=== PATIENT | female | born 1960 | race African-American/Black ===

== ENCOUNTER 2018-11-03 12:54 | Inpatient (IN) | payer MEDICAID ==
[~2018-11-03] VITALS: Ht 175.3 cm; Wt 173.5 kg
[2018-11-03 13:32] VITALS: BP 120/85
--- NOTE | 2018-11-03 13:52 | Emergency Room Report ---
History of Present Illness General Chief Complaint: Chest Pain Source: Patient Present Illness HPI Patient presents with complaints of upper chest pain shortness of breath patient reports that she has history of CHF Has noticed increased swelling in her legs and lower abdominal area Patient reports remote history of leukemia as well Reports that she had previous chemotherapy And that when she gets under stress and has a tendency to possibly flareup Denies any vomiting or diarrhea denies any fevers or chills she has a mild cough as well Patient reports that she has not been taking her diuretics Pain in the upper chest is 3 out of 10 heavy Patient feels more short of breath with any exertion and laying flat Allergies: Coded Allergies: No Known Allergies (Unverified , 11/03/18) Patient History Limited by: medical condition Last Menstrual Period: N/A Now: No Reviewed Nursing Documentation: PMH: Agreed; PSxH: Agreed Nursing Documentation-PMH Hx Cardiac Problems: Yes - Pacemaker Hx Hypertension: Yes Hx Diabetes: Yes Review of Systems All Other Systems: negative except mentioned in HPI Physical Exam Vital Signs Date Time Temp Pulse Resp B/P (MAP) Pulse Ox O2 Delivery O2 Flow Rate FiO2 11/03/18 13:22 98.1 84 18 128/63 (84) 90 Room Air Sp02 EP Interpretation: reviewed, normal General Appearance: mild distress - short Of breath Head: normocephalic, atraumatic Eyes: bilateral eye PERRL, bilateral eye EOMI ENT: hearing grossly normal, normal pharynx, TMs + canals normal, uvula midline Neck: full range of motion, supple, no meningismus, no bony tend Respiratory: no rhonchi, no respiratory distress, no retraction, no accessory muscle use, crackles - bilaterally Cardiovascular #1: normal peripheral pulses, regular rate, rhythm, no gallop, no JVD, no murmur Gastrointestinal: normal bowel sounds, non tender, soft, no mass, no organomegaly, non-distended, no guarding, no hernia, no pulsatile mass, no rebound Genitourinary: no CVA tenderness Musculoskeletal: normal inspection Neurologic: oriented x3, responsive, intake rn III-XII nml as tested, motor strength/ tone normal, sensory intact Psychiatric: mood/affect normal Skin: other - Edema bilaterally Lymphatic: normal inspection, no adenopathy Medical Decision Making Diagnostic Impression: Primary Impression: CHF (congestive heart failure) Additional Impression: ACS (acute coronary syndrome) ER Course Patient is a fairly complex patient with multiple differential to consideration including but not limited to cardiac cardiopulmonary and vascular emergencies Patient's x-ray and blood work also confirms acute congestive heart failure patient doing better with diuretics At this time not requiring any further BiPAP And admitted for further inpatient care Labs Test 11/03/18 14:00 11/03/18 23:08 White Blood Count 9.0 K/UL (4.8-10.8) Red Blood Count 4.43 M/UL (4.20-5.40) Hemoglobin 12.9 G/DL (12.0-16.0) Hematocrit 41.2 % (37.0-47.0) Mean Corpuscular Volume 93 FL (80-99) Mean Corpuscular Hemoglobin 29.2 PG (27.0-31.0) Mean Corpuscular Hemoglobin Concent 31.3 G/DL (32.0-36.0) Red Cell Distribution Width 14.7 % (11.6-14.8) Platelet Count 193 K/UL (150-450) Mean Platelet Volume 10.6 FL (6.5-10.1) Neutrophils (%) (Auto) 59.6 % (45.0-75.0) Lymphocytes (%) (Auto) 28.3 % (20.0-45.0) Monocytes (%) (Auto) 7.1 % (1.0-10.0) Eosinophils (%) (Auto) 3.9 % (0.0-3.0) Basophils (%) (Auto) 1.2 % (0.0-2.0) Sodium Level 144 MMOL/L (136-145) Potassium Level 4.0 MMOL/L (3.5-5.1) Chloride Level 108 MMOL/L (98-107) Carbon Dioxide Level 29 MMOL/L (21-32) Anion Gap 7 mmol/L (5-15) Blood Urea Nitrogen 16 mg/dL (7-18) Creatinine 1.2 MG/DL (0.55-1.30) Estimat Glomerular Filtration Rate 45.9 mL/min (>60) Glucose Level 127 MG/DL (74-106) Calcium Level 9.3 MG/DL (8.5-10.1) Total Bilirubin 0.5 MG/DL (0.2-1.0) Aspartate Amino Transf (AST/SGOT) 23 U/L (15-37) Alanine Aminotransferase (ALT/SGPT) 20 U/L (12-78) Alkaline Phosphatase 75 U/L (46-116) Total Creatine Kinase 36 U/L (26-308) Creatine Kinase MB < 0.5 NG/ML (0.0-3.6) Creatine Kinase MB Relative Index 1.3 Troponin I 0.000 ng/mL (0.000-0.056) 0.000 ng/mL (0.000-0.056) Pro-B-Type Natriuretic Peptide 10 pg/mL (0-125) Total Protein 7.1 G/DL (6.4-8.2) Albumin 3.1 G/DL (3.4-5.0) Globulin 4.0 g/dL Albumin/Globulin Ratio 0.8 (1.0-2.7) EKG Diagnostic Results Rate: normal Rhythm: NSR ST Segments: other - Nonspecific ST T wave changes Rhythm Strip Diag. Results EP Interpretation: yes Rate: 88 Rhythm: NSR, no PVC's, no ectopy Chest X-Ray Diagnostic Results Chest X-Ray Diagnostic Results : Chest X-Ray Ordered: Yes # of Views/Limited/Complete: 1 View Indication: Chest Pain EP Interpretation: Yes Interpretation: other - Cardiomegaly, pulmonary congestion, no bony abnormality Impression: Other - Acute CHF Electronically Signed by: Nathaniel Golden DO Last Vital Signs Date Time Temp Pulse Resp B/P (MAP) Pulse Ox O2 Delivery O2 Flow Rate FiO2 11/03/18 13:22 98.1 84 18 128/63 (84) 90 Room Air Status: improved Disposition: ADMITTED INPATIENT Condition: Serious Nathaniel Golden DO Nov 03, 2018 13:52
--- NOTE | 2018-11-03 14:20 | Diagnostic Imaging Report ---
EXAM: XR Chest, 1 View CLINICAL HISTORY: CP TECHNIQUE: Frontal view of the chest. COMPARISON: No relevant prior studies available. FINDINGS: Technically limited study due to underpenetration. Mild cardiomegaly with vascular congestion. Suspected CHF. Dual-lead pacer device in a left subclavian approach. No pneumothorax. IMPRESSION: Mild cardiomegaly with vascular congestion/suspected CHF.
[2018-11-03 14:27] LABS: BASOPHILS % (AUTO) 1.2 % (0.0-2.0); EOSINOPHILS % (AUTO) 3.9 % (0.0-3.0); HEMATOCRIT 41.2 % (37.0-47.0); HEMOGLOBIN 12.9 G/DL (12.0-16.0); LYMPHOCYTES % (AUTO) 28.3 % (20.0-45.0); MEAN CORPUSCULAR VOLUME 93 FL (80-99); MONOCYTES % (AUTO) 7.1 % (1.0-10.0); NEUTROPHILS % (AUTO) 59.6 % (45.0-75.0); PLATELET COUNT 193 K/UL (150-450); RED BLOOD COUNT 4.43 M/UL (4.20-5.40); RED CELL DISTRIBUTION WIDTH 14.7 % (11.6-14.8)
[2018-11-03 14:40] LABS: ANION GAP 7 mmol/L (5-15); BLOOD UREA NITROGEN 16 mg/dL (7-18); CALCIUM 9.3 MG/DL (8.5-10.1); CARBON DIOXIDE 29 MMOL/L (21-32); CHLORIDE 108 MMOL/L (98-107); CREATININE 1.2 MG/DL (0.55-1.30); SODIUM 144 MMOL/L (136-145)
[2018-11-03 14:57] LABS: ALANINE AMINOTRANSFERASE 20 U/L (12-78); ALBUMIN 3.1 G/DL (3.4-5.0); ALBUMIN/GLOBULIN RATIO 0.8 (1.0-2.7); ALKALINE PHOSPHATASE 75 U/L (46-116); ASPARTATE AMINO TRANSFERASE 23 U/L (15-37); BILIRUBIN,TOTAL 0.5 MG/DL (0.2-1.0); CKMB < 0.5 NG/ML (0.0-3.6); CREATINE KINASE 36 U/L (26-308)
[2018-11-03 15:30] VITALS: BP 109/58
[2018-11-03] MEDS ORDERED: UNOBMED ×2 (16:27→17:33)
[2018-11-03 17:15] VITALS: BP 124/70
[2018-11-03] MEDS ORDERED: METFORMIN HCL500 M1 ORAL (17:32)
[2018-11-03] MEDS ORDERED: DITROPAN10 MG ORAL (17:32)
[2018-11-03 20:00] VITALS: BP 130/98
[2018-11-03] MEDS: HYDROcodone/Acetamin 10/325 tab ORAL PRN (20:28)
[2018-11-03] MEDS: Promethazine/Codeine 5ml UD ORAL PRN (20:28)
[2018-11-03] MEDS: NovoLOG Insulin Flexpen SUBQ SCH (20:39)
[2018-11-04] VITALS: BP 101/63
[2018-11-04] MEDS: HYDROcodone/Acetamin 10/325 tab ORAL PRN (00:44)
[2018-11-04] MEDS ORDERED: HYDROcodone/Acetamin 10/325 tab ORAL PRN (03:15)
[2018-11-04 04:00] VITALS: BP 110/75
[2018-11-04] MEDS: NovoLOG Insulin Flexpen SUBQ SCH ×4 (05:44→20:12)
[2018-11-04] MEDS: Morphine Sulfate 4mg/ml Inj (IV USE ONLY) IVP PRN ×6 (06:20→23:56)
[2018-11-04 07:03] LABS: ANION GAP 5 mmol/L (5-15); BLOOD UREA NITROGEN 22 mg/dL (7-18); CARBON DIOXIDE 31 MMOL/L (21-32); CHLORIDE 103 MMOL/L (98-107); CHOLESTEROL 188 MG/DL (< 200); CREATININE 1.2 MG/DL (0.55-1.30); HDL CHOLESTEROL 51 MG/DL (40-60); POTASSIUM 4.1 MMOL/L (3.5-5.1); SODIUM 139 MMOL/L (136-145); TRIGLYCERIDES 141 MG/DL (30-150)
[2018-11-04 08:00] VITALS: BP 120/58
[2018-11-04] MEDS: Aspirin Baby 81mg ORAL SCH (09:01)
--- NOTE | 2018-11-04 10:22 | History & Physical ---
History and Physical History & Physicial HP dictated # [id number] Timmy Zurita MD Nov 04, 2018 10:22
[2018-11-04] MEDS: Augmentin 875mg Tab ORAL SCH ×2 (10:40→20:04)
[2018-11-04] MEDS: metFORMIN 500mg tab ORAL SCH ×2 (10:40→17:36)
[2018-11-04 12:00] VITALS: BP 119/72
[2018-11-04 16:00] VITALS: BP 133/65
--- NOTE | 2018-11-04 16:00 | History and Physical Report ---
DATE OF ADMISSION: 11/03/2018 CHIEF COMPLAINT: Shortness of breath and cough. HISTORY OF PRESENT ILLNESS: This is a 58-year-old, morbidly obese, female. Apparently, she has history of CHF, but she claimed that she was not taking any diuretics at home. She noticed her legs were swelling up about 3 days ago and last night, she started having cough and shortness of breath. She came to the emergency room, was diagnosed with CHF exacerbation and was admitted. She denies chest pain. PAST MEDICAL HISTORY: She denies history of MIs before. She says she has a pacemaker because her heart rate goes down when she sleeps probably because of sleep apnea. She has history of diabetes mellitus, on oral medications. Has history of hypertension. SOCIAL HISTORY: No history of smoking or alcohol abuse. She lives alone. She drives. Actually, she drove here to the hospital herself, but unemployed. ALLERGIES: No known drug allergies. REVIEW OF SYSTEMS: Noncontributory except above. PHYSICAL EXAMINATION: GENERAL: The patient is a morbidly obese female, in no acute distress. VITAL SIGNS: Blood pressure 120/58, pulse 87, respirations 20, temperature 97.9. HEENT: [place] conjunctivae. Anicteric sclerae. NECK: Supple. LUNGS: Coarse breath sounds bilaterally. HEART: S1, S2 without murmurs, rubs. ABDOMEN: Soft, nontender. EXTREMITIES: Bilateral pedal edema. LABORATORY FINDINGS: The chemistry panel shows serum sodium 139, potassium 4.1, chloride 103, CO2 31, BUN is 22, creatinine 1.2, blood sugar is 151. Troponin was negative x3. Lipid panel shows LDL of 123, triglycerides 141, HDL 51. Hemoglobin A1c was 7.3. ASSESSMENT: This is a 58-year-old female, who was admitted with CHF exacerbation. She may have actually diastolic dysfunction from high blood pressure since she has not had any reported ischemic event. She has also diabetes mellitus, which could also cause her CHF. She is status post pacemaker. She has also some degree of CKD likely even with serum creatinine 1.2. PLAN: The patient will be diuresed. She is going to be on oxygen. An echocardiogram will be obtained to assess LV function. I ordered the ultrasound lower extremities to rule out DVT. Her blood pressure will be followed and adjustment will be made in the patient's regimen. For diabetes, she will be on sliding scale insulin and I will add oral medications as needed. Timmy Zurita M.D. DR: ADENIKE JOB#: [id number] CC:
[2018-11-04 17:03] LABS: APPEARANCE,URINE CLEAR; BILIRUBIN, URINE NEGATIVE (NEGATIVE); COLOR,URINE PALE YELLOW; GLUCOSE, URINE (UA) NEGATIVE (NEGATIVE); KETONES,URINE NEGATIVE (NEGATIVE); LEUKOCYTE ESTERASE ,URINE NEGATIVE (NEGATIVE); NITRITE,URINE NEGATIVE (NEGATIVE); PH,URINE 7 (4.5-8.0); PROTEIN,URINE NEGATIVE (NEGATIVE); UROBILINOGEN,URINE NORMAL MG/DL (0.0-1.0)
[2018-11-04 20:00] VITALS: BP 115/74
[2018-11-05] VITALS: BP 151/74
[2018-11-05] MEDS: Promethazine/Codeine 5ml UD ORAL PRN (03:53)
[2018-11-05 04:00] VITALS: BP 118/72
[2018-11-05] MEDS: sitaGLIPtin 50mg tab ORAL SCH (05:53)
[2018-11-05] MEDS: NovoLOG Insulin Flexpen SUBQ SCH ×4 (05:58→22:35)
[2018-11-05 07:44] LABS: ANION GAP 6 mmol/L (5-15); BLOOD UREA NITROGEN 16 mg/dL (7-18); CALCIUM 9.5 MG/DL (8.5-10.1); CARBON DIOXIDE 32 MMOL/L (21-32); CHLORIDE 104 MMOL/L (98-107); CREATININE 0.9 MG/DL (0.55-1.30); POTASSIUM 4.1 MMOL/L (3.5-5.1); SODIUM 142 MMOL/L (136-145)
[2018-11-05 08:00] VITALS: BP 146/75
[2018-11-05] MEDS: Augmentin 875mg Tab ORAL SCH ×2 (08:31→22:19)
[2018-11-05] MEDS: Aspirin Baby 81mg ORAL SCH (08:31)
[2018-11-05] MEDS: metFORMIN 500mg tab ORAL SCH ×2 (08:31→17:23)
[2018-11-05 12:00] VITALS: BP 139/72
[2018-11-05] MEDS: Morphine Sulfate 4mg/ml Inj (IV USE ONLY) IVP PRN ×2 (13:01→22:34)
--- NOTE | 2018-11-05 14:20 | General Progress Note ---
Assessment/Plan Problem List: (1) CHF (congestive heart failure) ICD Codes: I50.9 - Heart failure, unspecified SNOMED: 76769054 (2) ACS (acute coronary syndrome) ICD Codes: I24.9 - Acute ischemic heart disease, unspecified SNOMED: 414448046 Assessment/Plan: keep on Lasix pain meds check echo Subjective Allergies: Coded Allergies: No Known Allergies (Unverified , 11/03/18) Subjective C/O pain Objective Last 24 Hour Vital Signs Date Time Temp Pulse Resp B/P (MAP) Pulse Ox O2 Delivery O2 Flow Rate FiO2 11/05/18 13:31 96.3 11/05/18 12:00 96.3 78 20 139/72 (94) 97 11/05/18 12:00 70 11/05/18 09:00 Nasal Cannula 2.0 11/05/18 08:00 86 11/05/18 08:00 97.2 79 20 146/75 (98) 94 11/05/18 04:00 98.7 85 19 118/72 (87) 96 11/05/18 04:00 80 11/05/18 00:00 98.5 71 19 151/74 (99) 96 11/05/18 00:00 73 11/04/18 21:00 Nasal Cannula 2.0 11/04/18 20:00 81 11/04/18 20:00 98.2 85 19 115/74 (88) 94 11/04/18 16:00 98.1 80 21 133/65 (87) 96 11/04/18 16:00 64 Intake and Output 11/04/18 11/05/18 19:00 07:00 Intake Total 400 ml 360 ml Output Total 1000 ml Balance -600 ml 360 ml Intake Oral 400 ml 360 ml Output Urine Total 1000 ml Laboratory Tests 11/04/18 16:23: Urine Color Pale yellow, Urine Appearance Clear, Urine pH 7, Urine Specific White 1.010, Urine Protein Negative, Urine Glucose (UA) Negative, Urine Ketones Negative, Urine Blood Negative, Urine Nitrite Negative, Urine Bilirubin Negative, Urine Urobilinogen Normal, Urine Leukocyte Esterase Negative, Urine RBC 0, Urine WBC 0-2, Urine Squamous Epithelial Cells Few, Urine Bacteria Occasional 11/05/18 05:26: Sodium Level 142, Potassium Level 4.1, Chloride Level 104, Carbon Dioxide Level 32, Anion Gap 6, Blood Urea Nitrogen 16, Creatinine 0.9, Estimat Glomerular Filtration Rate > 60, Glucose Level 124H, Calcium Level 9.5, Magnesium Level 1.7L, Thyroid Stimulating Hormone (TSH) 3.561 Height (Feet): 5 Height (Inches): 9.00 Weight (Pounds): 330 Cardiovascular: normal rate Respiratory/Chest: lungs clear Edema: 1+ Generalized Timmy Zurita MD Nov 05, 2018 14:20
[2018-11-05 16:00] VITALS: BP 125/59
[2018-11-05 20:00] VITALS: BP 120/70
[2018-11-06] VITALS (7 sets, daily range): BP systolic 104–147; BP diastolic 61–77
[2018-11-06] MEDS: Morphine Sulfate 4mg/ml Inj (IV USE ONLY) IVP PRN ×4 (01:47→21:04)
[2018-11-06] MEDS: sitaGLIPtin 50mg tab ORAL SCH (06:48)
[2018-11-06] MEDS: NovoLOG Insulin Flexpen SUBQ SCH ×4 (06:49→20:59)
[2018-11-06] MEDS: metFORMIN 500mg tab ORAL SCH ×2 (09:47→17:06)
[2018-11-06] MEDS: Augmentin 875mg Tab ORAL SCH ×2 (09:47→20:58)
[2018-11-06] MEDS: Aspirin Baby 81mg ORAL SCH ×2 (09:47→09:48)
--- NOTE | 2018-11-06 10:41 | Cardiology Report ---
APPROVED REPORT EXAM: Two-dimensional and M-mode echocardiogram with Doppler and color Doppler. INDICATION Congestive Heart Failure M-Mode DIMENSIONS IVSd1.2 (0.7-1.1cm)Left Atrium (MM)4.0 (1.6-4.0cm) LVDd5.6 (3.5-5.6cm)Aortic Root3.6 (2.0-3.7cm) PWd1.2 (0.7-1.1cm)Aortic Cusp Exc.2.4 (1.5-2.0cm) LVDs3.3 (2.5-4.0cm) PWs1.6 cm Technically difficult study due to patient body habitus. Study quality precludes accurate assessment of regional wall motion. Grossly normal left ventricular chamber size, systolic function and wall motion to the extent visualized . Left ventricular ejection fraction estimated to be 65-70 %. Mild left ventricular hypertrophy. Anterior Echo-free space, may be due to pericardial fat or effusion. Mild left atrial enlargement by 2-D. Right cardiac chamber sizes are within normal limits. Focal aortic valve sclerosis with adequate cusp excursion. Thickened mitral valve leaflets with normal excursion. Mild mitral annulus and aortic root calcification. Pulmonic valve not well visualized. Normal tricuspid valve structure. Subcostal views not obtainable. Pacing wires noted in the RV an RA A color flow and spectral Doppler study was performed and revealed: No aortic regurgitation. No mitral regurgitation. Mitral diastolic velocities suggest mild left ventricular diastolic dysfunction (Grade I). Mild tricuspid regurgitation. Tricuspid systolic velocities suggests peak right ventricular systolic pressure of 44 mmHg, consistent with mild pulmonary hypertension.
--- NOTE | 2018-11-06 11:11 | Cardiology Report ---
APPROVED REPORT EKG Measurement Heart [id number] Normal sinus rhythm Normal ECG
--- NOTE | 2018-11-06 15:31 | General Progress Note ---
Assessment/Plan Problem List: (1) CHF (congestive heart failure) ICD Codes: I50.9 - Heart failure, unspecified SNOMED: 07205120 (2) ACS (acute coronary syndrome) ICD Codes: I24.9 - Acute ischemic heart disease, unspecified SNOMED: 313024611 Status Narrative Echo EF 65% mild LVH Assessment/Plan: keep on Lasix pain meds follow labs Subjective Allergies: Coded Allergies: No Known Allergies (Unverified , 11/03/18) Subjective C/O pain Objective Last 24 Hour Vital Signs Date Time Temp Pulse Resp B/P (MAP) Pulse Ox O2 Delivery O2 Flow Rate FiO2 11/06/18 12:00 98.1 77 20 131/61 (84) 96 11/06/18 09:00 Nasal Cannula 2.0 11/06/18 08:00 97.9 76 18 134/68 (90) 95 11/06/18 04:00 98.1 78 20 128/66 (86) 97 11/06/18 04:00 71 11/06/18 00:14 98.1 81 20 118/63 (81) 95 11/06/18 00:00 78 11/05/18 21:00 Nasal Cannula 2.0 11/05/18 20:00 98.1 87 20 120/70 (87) 96 11/05/18 20:00 87 11/05/18 16:00 97.9 86 20 125/59 (81) 95 11/05/18 16:00 72 Intake and Output 11/05/18 11/06/18 19:00 07:00 Intake Total 1140 ml Output Total 4950 ml Balance -3810 ml Intake Oral 1140 ml Output Urine Total 4950 ml # Voids 4 Height (Feet): 5 Height (Inches): 9.00 Weight (Pounds): 330 Cardiovascular: normal rate Respiratory/Chest: lungs clear Edema: 1+ Generalized Timmy Zurita MD Nov 06, 2018 15:31
[2018-11-07] VITALS: BP 132/73
[2018-11-07] MEDS: Morphine Sulfate 4mg/ml Inj (IV USE ONLY) IVP PRN ×2 (00:53→04:31)
[2018-11-07 04:00] VITALS: BP 123/70
[2018-11-07] MEDS: sitaGLIPtin 50mg tab ORAL SCH (06:05)
[2018-11-07] MEDS: NovoLOG Insulin Flexpen SUBQ SCH ×4 (06:06→21:22)
[2018-11-07 06:59] LABS: ANION GAP 2 mmol/L (5-15); BLOOD UREA NITROGEN 19 mg/dL (7-18); CALCIUM 9.1 MG/DL (8.5-10.1); CARBON DIOXIDE 34 MMOL/L (21-32); CHLORIDE 103 MMOL/L (98-107); CREATININE 0.8 MG/DL (0.55-1.30); POTASSIUM 3.8 MMOL/L (3.5-5.1); SODIUM 139 MMOL/L (136-145)
[2018-11-07 08:00] VITALS: BP 138/85
[2018-11-07] MEDS: metFORMIN 500mg tab ORAL SCH ×2 (09:03→17:26)
[2018-11-07] MEDS: Augmentin 875mg Tab ORAL SCH ×2 (09:03→21:22)
[2018-11-07] MEDS ORDERED: Aspirin Baby 81mg ORAL SCH (09:15)
[2018-11-07 12:00] VITALS: BP_SYST 102; BP_SYST 138; BP_DIAS 78; BP_DIAS 85
--- NOTE | 2018-11-07 13:06 | General Progress Note ---
Assessment/Plan Problem List: (1) CHF (congestive heart failure) ICD Codes: I50.9 - Heart failure, unspecified SNOMED: 37329693 (2) ACS (acute coronary syndrome) ICD Codes: I24.9 - Acute ischemic heart disease, unspecified SNOMED: 267609142 Assessment/Plan: keep on Lasix pain meds follow labs Subjective Allergies: Coded Allergies: No Known Allergies (Unverified , 11/03/18) Subjective C/O pain Objective Last 24 Hour Vital Signs Date Time Temp Pulse Resp B/P (MAP) Pulse Ox O2 Delivery O2 Flow Rate FiO2 11/07/18 09:00 Nasal Cannula 2.0 11/07/18 08:00 98.6 84 18 138/85 (102) 92 11/07/18 07:25 80 11/07/18 04:00 98.4 85 18 123/70 (87) 93 11/07/18 04:00 78 11/07/18 00:00 78 11/07/18 00:00 98.5 85 18 132/73 (92) 93 11/06/18 21:00 Nasal Cannula 2.0 11/06/18 20:00 99.6 82 18 104/67 (79) 95 11/06/18 20:00 70 11/06/18 16:00 75 11/06/18 16:00 98.8 79 20 125/76 (92) 93 Intake and Output 11/06/18 11/07/18 19:00 07:00 Intake Total 120 ml Balance 120 ml Intake Oral 120 ml Laboratory Tests 11/07/18 05:36: Sodium Level 139, Potassium Level 3.8, Chloride Level 103, Carbon Dioxide Level 34H, Anion Gap 2L, Blood Urea Nitrogen 19H, Creatinine 0.8, Estimat Glomerular Filtration Rate > 60, Glucose Level 122H, Calcium Level 9.1 Height (Feet): 5 Height (Inches): 9.00 Weight (Pounds): 380 Cardiovascular: normal rate Respiratory/Chest: lungs clear Edema: 1+ Generalized Timmy Zurita MD Nov 07, 2018 13:06
[2018-11-07 16:00] VITALS: BP 131/77
[2018-11-07] MEDS: Promethazine/Codeine 5ml UD ORAL PRN (17:26)
[2018-11-07 20:00] VITALS: BP 128/73
[2018-11-08] MEDS: Morphine Sulfate 4mg/ml Inj (IV USE ONLY) IVP PRN ×3 (03:47→23:42)
[2018-11-08 04:00] VITALS: BP 109/67
[2018-11-08] MEDS: NovoLOG Insulin Flexpen SUBQ SCH ×4 (05:20→20:51)
[2018-11-08] MEDS: sitaGLIPtin 50mg tab ORAL SCH (05:24)
[2018-11-08 08:00] VITALS: BP 146/75
[2018-11-08] MEDS: Augmentin 875mg Tab ORAL SCH ×2 (09:01→20:33)
[2018-11-08] MEDS: metFORMIN 500mg tab ORAL SCH ×2 (09:01→17:08)
[2018-11-08] MEDS: Aspirin Baby 81mg ORAL SCH (09:01)
[2018-11-08 12:00] VITALS: BP 112/70
--- NOTE | 2018-11-08 12:09 | General Progress Note ---
Assessment/Plan Problem List: (1) CHF (congestive heart failure) ICD Codes: I50.9 - Heart failure, unspecified SNOMED: 19676460 (2) ACS (acute coronary syndrome) ICD Codes: I24.9 - Acute ischemic heart disease, unspecified SNOMED: 946896235 Assessment/Plan: keep on Lasix pain meds PT Subjective Allergies: Coded Allergies: No Known Allergies (Unverified , 11/03/18) Subjective C/O pain Objective Last 24 Hour Vital Signs Date Time Temp Pulse Resp B/P (MAP) Pulse Ox O2 Delivery O2 Flow Rate FiO2 11/08/18 09:00 Nasal Cannula 2.0 11/08/18 08:00 98.9 88 18 146/75 (98) 100 11/08/18 08:00 86 11/08/18 04:00 97.9 90 20 109/67 (81) 96 11/08/18 04:00 88 11/08/18 00:00 78 11/07/18 21:00 Nasal Cannula 2.0 11/07/18 20:00 76 11/07/18 20:00 98.3 91 19 128/73 (91) 98 11/07/18 16:00 84 11/07/18 16:00 97.3 85 18 131/77 (95) 94 Intake and Output 11/07/18 11/08/18 18:59 06:59 Intake Total 770 ml 240 ml Output Total 3100 ml 500 ml Balance -2330 ml -260 ml Intake Oral 770 ml 240 ml Output Urine Total 3100 ml 500 ml # Bowel Movements 2 1 Height (Feet): 5 Height (Inches): 9.00 Weight (Pounds): 396 Cardiovascular: normal rate Respiratory/Chest: lungs clear Edema: 1+ Generalized Timmy Zurita MD Nov 08, 2018 12:09
[2018-11-08] MEDS: Promethazine/Codeine 5ml UD ORAL PRN (20:35)
[2018-11-09] VITALS: BP 136/74
[2018-11-09] MEDS: Morphine Sulfate 4mg/ml Inj (IV USE ONLY) IVP PRN (04:19)
[2018-11-09] MEDS: NovoLOG Insulin Flexpen SUBQ SCH ×4 (05:56→21:54)
[2018-11-09] MEDS: sitaGLIPtin 50mg tab ORAL SCH (06:05)
[2018-11-09] MEDS ORDERED: Morphine Sulfate 4mg/ml Inj (IV USE ONLY) IVP PRN (07:15)
[2018-11-09 08:00] VITALS: BP 118/79
[2018-11-09] MEDS: metFORMIN 500mg tab ORAL SCH ×2 (09:18→17:41)
[2018-11-09] MEDS: Augmentin 875mg Tab ORAL SCH ×2 (09:18→21:52)
[2018-11-09] MEDS: Aspirin Baby 81mg ORAL SCH (09:18)
--- NOTE | 2018-11-09 11:11 | General Progress Note ---
Assessment/Plan Problem List: (1) CHF (congestive heart failure) ICD Codes: I50.9 - Heart failure, unspecified SNOMED: 86833232 (2) ACS (acute coronary syndrome) ICD Codes: I24.9 - Acute ischemic heart disease, unspecified SNOMED: 013038544 Assessment/Plan: keep on Lasix pain meds PT Subjective Allergies: Coded Allergies: No Known Allergies (Unverified , 11/03/18) Subjective C/O pain Objective Last 24 Hour Vital Signs Date Time Temp Pulse Resp B/P (MAP) Pulse Ox O2 Delivery O2 Flow Rate FiO2 11/09/18 10:06 98.6 11/09/18 10:05 92 Room Air 21 11/09/18 09:00 Nasal Cannula 2.0 11/09/18 08:00 98.6 86 18 118/79 (92) 94 11/09/18 04:49 99.0 11/09/18 04:00 83 11/09/18 00:00 99.0 89 18 136/74 (94) 95 11/09/18 00:00 67 11/08/18 21:00 Nasal Cannula 2.0 11/08/18 20:00 81 11/08/18 16:00 58 11/08/18 14:52 91 Room Air 21 11/08/18 12:00 98.1 87 18 112/70 (84) 100 11/08/18 12:00 93 Intake and Output 11/08/18 11/09/18 18:59 06:59 Intake Total 1380 ml Output Total 2400 ml Balance -1020 ml Intake Oral 1380 ml Output Urine Total 2400 ml # Voids 2 # Bowel Movements 1 1 Height (Feet): 5 Height (Inches): 9.00 Weight (Pounds): 390 Cardiovascular: normal rate Respiratory/Chest: lungs clear Timmy Zurita MD Nov 09, 2018 11:11
[2018-11-09 12:00] VITALS: BP 123/72
[2018-11-09] MEDS: Promethazine/Codeine 5ml UD ORAL PRN (13:14)
[2018-11-09 16:00] VITALS: BP 104/67
[2018-11-09 20:00] VITALS: BP 165/88
[2018-11-09] MEDS: HYDROcodone/Acetamin 10/325 tab ORAL PRN (22:57)
[2018-11-10] VITALS: BP 160/78
[2018-11-10] MEDS: Promethazine/Codeine 5ml UD ORAL PRN ×2 (00:35→21:11)
[2018-11-10 04:00] VITALS: BP 127/87
[2018-11-10] MEDS: NovoLOG Insulin Flexpen SUBQ SCH ×4 (05:41→20:26)
[2018-11-10] MEDS: sitaGLIPtin 50mg tab ORAL SCH (05:47)
[2018-11-10 08:00] VITALS: BP 117/77
[2018-11-10] MEDS: metFORMIN 500mg tab ORAL SCH ×2 (08:12→17:33)
[2018-11-10] MEDS: Augmentin 875mg Tab ORAL SCH ×2 (08:12→20:22)
[2018-11-10] MEDS: Aspirin Baby 81mg ORAL SCH (08:12)
[2018-11-10] MEDS: HYDROcodone/Acetamin 10/325 tab ORAL PRN ×3 (08:13→17:39)
[2018-11-10 12:00] VITALS: BP 134/82
--- NOTE | 2018-11-10 14:28 | General Progress Note ---
Assessment/Plan Problem List: (1) CHF (congestive heart failure) ICD Codes: I50.9 - Heart failure, unspecified SNOMED: 11485548 (2) ACS (acute coronary syndrome) ICD Codes: I24.9 - Acute ischemic heart disease, unspecified SNOMED: 558728592 Assessment/Plan: keep on Lasix pain meds PT Subjective Allergies: Coded Allergies: No Known Allergies (Unverified , 11/03/18) Subjective walked a little bit Objective Last 24 Hour Vital Signs Date Time Temp Pulse Resp B/P (MAP) Pulse Ox O2 Delivery O2 Flow Rate FiO2 11/10/18 12:00 97.2 91 24 134/82 (99) 92 11/10/18 09:35 94 Room Air 21 11/10/18 09:00 Nasal Cannula 2.0 11/10/18 08:00 98.7 93 21 117/77 (90) 92 11/10/18 04:00 98.0 83 24 127/87 (100) 98 11/10/18 00:00 98.3 79 24 160/78 (105) 95 11/09/18 21:00 Nasal Cannula 2.0 11/09/18 20:23 94 Room Air 21 11/09/18 20:00 98.6 96 23 165/88 (113) 93 11/09/18 16:00 98.6 80 18 104/67 (79) 95 Intake and Output 11/09/18 11/10/18 18:59 06:59 Intake Total 720 ml Output Total 700 ml Balance 720 ml -700 ml Intake Oral 720 ml Output Urine Total 700 ml # Voids 3 # Bowel Movements 1 2 Laboratory Tests 11/09/18 14:57: Arterial Blood pH 7.377, Arterial Blood Partial Pressure CO2 58.0*H, Arterial Blood Partial Pressure O2 60.8L, Arterial Blood HCO3 33.3H, Arterial Blood Oxygen Saturation 89.1*L, Arterial Blood Base Excess 6.4H, Mal Test Positive Height (Feet): 5 Height (Inches): 9.00 Weight (Pounds): 390 Cardiovascular: normal rate Respiratory/Chest: lungs clear Timmy Zurita MD Nov 10, 2018 14:28
[2018-11-10 15:47] VITALS: BP 109/74
[2018-11-10 19:42] VITALS: BP 114/52
[2018-11-10] MEDS ORDERED: Triamcinolone 0.1% 15gm Cr TOPIC SCH ×2 (20:15→21:00)
[2018-11-11] VITALS: BP 121/61
[2018-11-11] MEDS: HYDROcodone/Acetamin 10/325 tab ORAL PRN (00:32)
[2018-11-11 04:00] VITALS: BP 134/67
[2018-11-11] MEDS: NovoLOG Insulin Flexpen SUBQ SCH ×4 (06:38→20:29)
[2018-11-11] MEDS: sitaGLIPtin 50mg tab ORAL SCH (06:38)
[2018-11-11 08:00] VITALS: BP 142/93
[2018-11-11] MEDS: metFORMIN 500mg tab ORAL SCH ×2 (08:30→18:00)
[2018-11-11] MEDS: Triamcinolone 0.1% 15gm Cr TOPIC SCH ×3 (08:30→18:05)
[2018-11-11] MEDS: Aspirin Baby 81mg ORAL SCH (08:30)
[2018-11-11] MEDS: Augmentin 875mg Tab ORAL SCH (08:30)
[2018-11-11] MEDS ORDERED: Triamcinolone 0.1% 15gm Cr TOPIC SCH ×2 (09:00→21:00)
[2018-11-11] MEDS: Promethazine/Codeine 5ml UD ORAL PRN (11:13)
[2018-11-11 12:00] VITALS: BP 163/100
[2018-11-11] MEDS: Losartan 50mg tab ORAL SCH ×2 (13:16→17:07)
[2018-11-11 16:00] VITALS: BP 110/66
--- NOTE | 2018-11-11 18:34 | General Progress Note ---
Assessment/Plan Problem List: (1) CHF (congestive heart failure) ICD Codes: I50.9 - Heart failure, unspecified SNOMED: 70370672 (2) ACS (acute coronary syndrome) ICD Codes: I24.9 - Acute ischemic heart disease, unspecified SNOMED: 885303341 Assessment/Plan: Dc Lasix Avapro started check labs tomorrow Subjective Allergies: Coded Allergies: No Known Allergies (Unverified , 11/03/18) Subjective pt was dizzy today Objective Last 24 Hour Vital Signs Date Time Temp Pulse Resp B/P (MAP) Pulse Ox O2 Delivery O2 Flow Rate FiO2 11/11/18 17:07 110/66 11/11/18 16:00 98.0 79 20 110/66 (81) 96 11/11/18 13:16 163/100 11/11/18 12:00 97.9 75 18 163/100 (121) 97 11/11/18 09:00 Nasal Cannula 2.0 11/11/18 08:07 95 Nasal Cannula 2.0 28 11/11/18 08:00 97.7 82 18 142/93 (109) 95 11/11/18 04:00 97.8 84 20 134/67 (89) 96 11/11/18 01:02 98.3 11/11/18 00:00 97.8 84 20 121/61 (81) 95 11/10/18 21:00 Nasal Cannula 2.0 11/10/18 20:02 95 Nasal Cannula 2.0 28 11/10/18 19:42 98.3 83 21 114/52 (72) 95 Intake and Output 11/10/18 11/11/18 18:59 06:59 Intake Total 600 ml 600 ml Balance 600 ml 600 ml Intake Oral 600 ml 600 ml # Voids 4 3 # Bowel Movements 1 1 Height (Feet): 5 Height (Inches): 9.00 Weight (Pounds): 389 Cardiovascular: normal rate Respiratory/Chest: lungs clear Timmy Zurita MD Nov 11, 2018 18:34
[2018-11-11 20:00] VITALS: BP 136/103
[2018-11-12] MEDS: HYDROcodone/Acetamin 10/325 tab ORAL PRN ×4 (01:48→23:17)
[2018-11-12] MEDS: NovoLOG Insulin Flexpen SUBQ SCH ×4 (06:07→21:09)
[2018-11-12] MEDS: sitaGLIPtin 50mg tab ORAL SCH (06:08)
[2018-11-12 07:33] LABS: ANION GAP 6 mmol/L (5-15); BLOOD UREA NITROGEN 23 mg/dL (7-18); CALCIUM 9.5 MG/DL (8.5-10.1); CARBON DIOXIDE 33 MMOL/L (21-32); CHLORIDE 104 MMOL/L (98-107); CREATININE 0.9 MG/DL (0.55-1.30); POTASSIUM 3.6 MMOL/L (3.5-5.1); SODIUM 143 MMOL/L (136-145)
[2018-11-12 08:00] VITALS: BP 131/93
[2018-11-12] MEDS: metFORMIN 500mg tab ORAL SCH ×2 (08:38→17:36)
[2018-11-12] MEDS: Aspirin Baby 81mg ORAL SCH (08:39)
[2018-11-12] MEDS: Triamcinolone 0.1% 15gm Cr TOPIC SCH ×3 (08:39→17:36)
[2018-11-12] MEDS: Losartan 50mg tab ORAL SCH ×2 (09:20→17:22)
--- NOTE | 2018-11-12 11:44 | General Progress Note ---
Assessment/Plan Problem List: (1) CHF (congestive heart failure) ICD Codes: I50.9 - Heart failure, unspecified SNOMED: 98446268 (2) ACS (acute coronary syndrome) ICD Codes: I24.9 - Acute ischemic heart disease, unspecified SNOMED: 383784669 (3) HTN (hypertension) ICD Codes: I10 - Essential (primary) hypertension SNOMED: 34841767 Assessment/Plan: po Lasix watch BP will discuss with case sealer Subjective Allergies: Coded Allergies: No Known Allergies (Unverified , 11/03/18) Subjective pt says she can't go home Objective Last 24 Hour Vital Signs Date Time Temp Pulse Resp B/P (MAP) Pulse Ox O2 Delivery O2 Flow Rate FiO2 11/12/18 09:20 131/93 11/12/18 09:00 Nasal Cannula 2.0 11/12/18 08:00 97.9 99 18 131/93 (106) 99 11/11/18 21:00 Nasal Cannula 2.0 11/11/18 20:00 98.9 93 21 136/103 (114) 95 11/11/18 19:54 95 Nasal Cannula 2.0 28 11/11/18 17:07 110/66 11/11/18 16:00 98.0 79 20 110/66 (81) 96 11/11/18 13:16 163/100 11/11/18 12:00 97.9 75 18 163/100 (121) 97 Intake and Output 11/11/18 11/12/18 19:00 07:00 Intake Total 1200 ml 1200 ml Output Total 1500 ml 1200 ml Balance -300 ml 0 ml Intake Oral 1200 ml 1200 ml Output Urine Total 1500 ml 1200 ml # Voids 4 # Bowel Movements 1 Laboratory Tests 11/12/18 05:50: Sodium Level 143, Potassium Level 3.6, Chloride Level 104, Carbon Dioxide Level 33H, Anion Gap 6, Blood Urea Nitrogen 23H, Creatinine 0.9, Estimat Glomerular Filtration Rate > 60, Glucose Level 109H, Calcium Level 9.5 Height (Feet): 5 Height (Inches): 9.00 Weight (Pounds): 387 Cardiovascular: normal rate Respiratory/Chest: lungs clear Edema: 1+ Generalized Timmy Zurita MD Nov 12, 2018 11:44
[2018-11-12] MEDS ORDERED: JANUVIA50 MG ORAL (11:46)
[2018-11-12] MEDS ORDERED: FUROSEMIDE40 MG ORAL (11:46)
[2018-11-12] MEDS ORDERED: ASPIRIN81 MG ORAL (11:46)
[2018-11-12] MEDS ORDERED: COZAAR50 MG ORAL (11:46)
[2018-11-12] MEDS ORDERED: ALLOPURINOL100 M1 ORAL (11:46)
[2018-11-12] MEDS ORDERED: LIPITOR10 MG ORAL (11:46)
[2018-11-12 12:00] VITALS: BP_SYST 100; BP_SYST 131; BP_DIAS 54; BP_DIAS 93
[2018-11-12 16:00] VITALS: BP 92/62
[2018-11-12 20:00] VITALS: BP 107/45
[2018-11-13] VITALS: BP 100/49
[2018-11-13] MEDS: Promethazine/Codeine 5ml UD ORAL PRN ×2 (01:01→19:31)
[2018-11-13] MEDS: HYDROcodone/Acetamin 10/325 tab ORAL PRN ×2 (03:46→22:20)
[2018-11-13 04:00] VITALS: BP 134/70
[2018-11-13] MEDS: sitaGLIPtin 50mg tab ORAL SCH (06:14)
[2018-11-13] MEDS: NovoLOG Insulin Flexpen SUBQ SCH ×4 (06:25→21:12)
[2018-11-13 08:00] VITALS: BP 145/92
[2018-11-13] MEDS: Losartan 50mg tab ORAL SCH ×2 (08:35→16:56)
[2018-11-13] MEDS: metFORMIN 500mg tab ORAL SCH ×2 (08:35→16:56)
[2018-11-13] MEDS: Triamcinolone 0.1% 15gm Cr TOPIC SCH ×3 (08:36→16:56)
[2018-11-13] MEDS: Furosemide 40mg tab ORAL SCH (08:36)
[2018-11-13] MEDS: Aspirin Baby 81mg ORAL SCH (08:36)
[2018-11-13 12:00] VITALS: BP 124/93
--- NOTE | 2018-11-13 14:06 | General Progress Note ---
Assessment/Plan Problem List: (1) CHF (congestive heart failure) ICD Codes: I50.9 - Heart failure, unspecified SNOMED: 77774129 (2) ACS (acute coronary syndrome) ICD Codes: I24.9 - Acute ischemic heart disease, unspecified SNOMED: 596794812 (3) HTN (hypertension) ICD Codes: I10 - Essential (primary) hypertension SNOMED: 77260610 Assessment/Plan: po Lasix watch BP discussed with rn field case manager Subjective Allergies: Coded Allergies: No Known Allergies (Unverified , 11/03/18) Subjective In NAD Objective Last 24 Hour Vital Signs Date Time Temp Pulse Resp B/P (MAP) Pulse Ox O2 Delivery O2 Flow Rate FiO2 11/13/18 12:00 98.7 92 18 124/93 (103) 93 11/13/18 09:00 Nasal Cannula 2.0 11/13/18 08:35 145/92 11/13/18 08:08 95 Nasal Cannula 2.0 28 11/13/18 08:00 98.5 92 18 145/92 (109) 95 11/13/18 04:16 97.5 11/13/18 04:00 97.5 88 17 134/70 (91) 96 11/13/18 00:00 97.7 84 17 100/49 (66) 99 11/12/18 23:00 Nasal Cannula 2.0 11/12/18 20:38 96 Nasal Cannula 2.0 28 11/12/18 20:00 97.7 76 17 107/45 (65) 94 11/12/18 17:22 92/62 11/12/18 16:00 97.9 51 18 92/62 (72) 94 Intake and Output 11/12/18 11/13/18 19:00 07:00 Intake Total 1100 ml Balance 1100 ml Intake Oral 1100 ml # Voids 3 1 Height (Feet): 5 Height (Inches): 9.00 Weight (Pounds): 387 Cardiovascular: normal rate Respiratory/Chest: lungs clear Edema: no edema noted Generalized Timmy Zurita MD Nov 13, 2018 14:06
[2018-11-13 16:00] VITALS: BP 128/89
[2018-11-13 20:53] VITALS: BP 137/85
[2018-11-14] VITALS: BP 134/71
[2018-11-14 04:00] VITALS: BP 130/68
[2018-11-14] MEDS: sitaGLIPtin 50mg tab ORAL SCH (06:15)
[2018-11-14] MEDS: NovoLOG Insulin Flexpen SUBQ SCH ×4 (06:30→20:04)
[2018-11-14 08:16] VITALS: BP 129/76
[2018-11-14] MEDS: Furosemide 40mg tab ORAL SCH (08:20)
[2018-11-14] MEDS: Aspirin Baby 81mg ORAL SCH (08:20)
[2018-11-14] MEDS: metFORMIN 500mg tab ORAL SCH ×2 (08:20→17:11)
[2018-11-14] MEDS: Losartan 50mg tab ORAL SCH ×2 (08:21→17:11)
[2018-11-14] MEDS: Triamcinolone 0.1% 15gm Cr TOPIC SCH ×3 (08:23→17:12)
--- NOTE | 2018-11-14 09:54 | General Progress Note ---
Assessment/Plan Problem List: (1) CHF (congestive heart failure) ICD Codes: I50.9 - Heart failure, unspecified SNOMED: 55707098 (2) ACS (acute coronary syndrome) ICD Codes: I24.9 - Acute ischemic heart disease, unspecified SNOMED: 466509533 (3) HTN (hypertension) ICD Codes: I10 - Essential (primary) hypertension SNOMED: 70290863 Assessment/Plan: po Lasix watch BP discussed with manager of case management Subjective Allergies: Coded Allergies: No Known Allergies (Unverified , 11/03/18) Subjective In NAD Objective Last 24 Hour Vital Signs Date Time Temp Pulse Resp B/P (MAP) Pulse Ox O2 Delivery O2 Flow Rate FiO2 11/14/18 09:00 Nasal Cannula 2.0 11/14/18 08:21 129/76 11/14/18 08:16 98.4 84 20 129/76 (93) 94 11/14/18 04:00 98.2 90 18 130/68 (88) 96 11/14/18 00:00 98.2 93 18 134/71 (92) 95 11/13/18 22:55 Nasal Cannula 2.0 11/13/18 22:50 97.3 11/13/18 20:53 97.3 77 18 137/85 (102) 97 11/13/18 19:44 95 Nasal Cannula 2.0 28 11/13/18 16:56 128/89 11/13/18 16:00 97.8 63 18 128/89 (102) 95 11/13/18 12:00 98.7 92 18 124/93 (103) 93 Intake and Output 11/13/18 11/14/18 19:00 07:00 Intake Total 1600 ml 480 ml Balance 1600 ml 480 ml Intake Oral 1600 ml 480 ml # Voids 6 4 # Bowel Movements 1 Height (Feet): 5 Height (Inches): 9.00 Weight (Pounds): 382 Cardiovascular: normal rate Respiratory/Chest: lungs clear Timmy Zurita MD Nov 14, 2018 09:54
[2018-11-14 12:00] VITALS: BP 135/71
[2018-11-14 16:00] VITALS: BP 131/78
[2018-11-14] MEDS: HYDROcodone/Acetamin 10/325 tab ORAL PRN (16:43)
[2018-11-14] MEDS: Promethazine/Codeine 5ml UD ORAL PRN (16:50)
[2018-11-14 20:13] VITALS: BP 152/83
[2018-11-15] MEDS: HYDROcodone/Acetamin 10/325 tab ORAL PRN ×2 (01:54→06:13)
[2018-11-15 04:04] VITALS: BP 100/45
[2018-11-15] MEDS: sitaGLIPtin 50mg tab ORAL SCH (06:11)
[2018-11-15] MEDS: NovoLOG Insulin Flexpen SUBQ SCH (06:14)
[2018-11-15] MEDS: Furosemide 40mg tab ORAL SCH (09:00)
[2018-11-15] MEDS: Triamcinolone 0.1% 15gm Cr TOPIC SCH (09:00)
[2018-11-15] MEDS: metFORMIN 500mg tab ORAL SCH (09:28)
[2018-11-15] MEDS: Aspirin Baby 81mg ORAL SCH (09:28)
[2018-11-15 09:32] VITALS: BP 134/72
[2018-11-15] MEDS: Losartan 50mg tab ORAL SCH (09:32)
--- NOTE | 2018-11-17 18:47 | Discharge Summary ---
Discharge Summary Discharge Summary _ DATE OF ADMISSION: 11/03/2018 DATE OF DISCHARGE: 11/15/2018 DISCHARGED BY: Dr. Timmy Zurita BRIEF HOSPITAL COURSE: Patient is a 58-year-old morbidly obese, -[place] female. She has history of CHF, but claimed not taking any diuretics at home. She noted leg swelling for 3 days. She started having cough and shortness of breath. She came to the emergency room for further evaluation. She denied any history of NV. She has a pacemaker because her heart rate went down when she sleeps probably because of sleep apnea. She has history of diabetes mellitus and on oral medications. She has history of hypertension. On evaluation at the ED, vital signs were stable. Blood work did not show any leukocytosis. Hemoglobin and hematocrit were stable. Electrolytes were normal. Troponin was negative. proBNP 10. EKG showed normal sinus rhythm with nonspecific ST changes. Chest x-ray showed cardiomegaly with vascular congestion/suspected CHF. She was then admitted for CHF exacerbation. She was admitted to monitored floor. She was given IV diuresis. Echocardiogram done showed ejection fraction of 65 to 70%. Blood glucose was monitored. She was given Januvia, metformin and insulin sliding scale. She was given Cozaar for blood pressure support. Venous duplex was negative for acute DVT. IV Lasix was transitioned to p.o. She was given physical therapy. Patient was discharged home. Portable oxygen to follow. FINAL DIAGNOSES: Acute CHF Acute coronary syndrome Hypertension DISPOSITION: Patient was discharged home. DISCHARGE MEDICATIONS: Refer to Discharge Medication List. DISCHARGE INSTRUCTIONS: Follow-up in a week. I have been assigned to complete a discharge summary on this account, I was not involved with the patient's management.--CLARE Bangura Jacqueline Robles NP Nov 17, 2018 18:47
== END 2018-11-15 10:48 | disposition home or self-care (01) | DRG 194 ==
LOC: EMR 14:03 → 2E 15:30 → EDBEDREQ 15:55 → 2E 11-04 05:21 → 4E 11-09 06:03
DX: I13.0 Hypertensive heart and chronic kidney disease with heart failure and stage 1 through stage 4 chronic kidney disease, or unspecified chronic kidney disease (principal); I50.33 Acute on chronic diastolic (congestive) heart failure; E66.01 Morbid (severe) obesity due to excess calories; Z68.43 Body mass index [BMI] 50.0-59.9, adult; I24.9 Acute ischemic heart disease, unspecified; N18.9 Chronic kidney disease, unspecified
CPT/HCPCS: 36415; 36600; 71045; 80048; 80053; 80061; 81001; 82550; 82553; 82803; 82962; 83036; 83735; 83880; 84443; 84484; 85025; 93005; 93306; 93970; 96374; 99285; J1815

== ENCOUNTER → 2018-11-16 | Emergency (ER) | payer MEDICAID ==
[~2018-11-16] VITALS: Ht 175.3 cm; Wt 149.7 kg
[~2018-11-16] MED LIST: ALLOPURINOL100 M1 ORAL; ASPIRIN81 MG ORAL; COZAAR50 MG ORAL; DITROPAN10 MG ORAL; FUROSEMIDE40 MG ORAL; HYDROcodone/Acetamin 5/325 tab ORAL ONE; JANUVIA50 MG ORAL; LIPITOR10 MG ORAL; METFORMIN HCL500 M1 ORAL; UNOBMED
[2018-11-16 04:45] VITALS: BP 129/80
--- NOTE | 2018-11-16 04:50 | NUR ---
ED Nurse Note: SOB for one week. Pt was discharged from [facility] yesterday - she states she was in for pneumonia and CHF, and that the SOB has not changed. General body aches. Pt is AAO X4, VSS, with no acute distress noted. Pt has difficulty ambulating and needs assistance. No skin issues observed.
[2018-11-16 05:08] LABS: BASOPHILS % (AUTO) 2.6 % (0.0-2.0); HEMATOCRIT 40.8 % (37.0-47.0); HEMOGLOBIN 12.7 G/DL (12.0-16.0); LYMPHOCYTES % (AUTO) 35.4 % (20.0-45.0); MEAN CORPUSCULAR VOLUME 91 FL (80-99); MONOCYTES % (AUTO) 6.8 % (1.0-10.0); NEUTROPHILS % (AUTO) 52.2 % (45.0-75.0); PLATELET COUNT 289 K/UL (150-450); RED BLOOD COUNT 4.46 M/UL (4.20-5.40); RED CELL DISTRIBUTION WIDTH 13.8 % (11.6-14.8)
--- NOTE | 2018-11-16 05:15 | NUR ---
ED Nurse Note: IV line placed, labs sent, x-ray completed.
[2018-11-16 05:20] LABS: ANION GAP 4 mmol/L (5-15); BLOOD UREA NITROGEN 19 mg/dL (7-18); CALCIUM 9.5 MG/DL (8.5-10.1); CARBON DIOXIDE 34 MMOL/L (21-32); CHLORIDE 103 MMOL/L (98-107); CREATININE 0.9 MG/DL (0.55-1.30); POTASSIUM 3.6 MMOL/L (3.5-5.1); SODIUM 141 MMOL/L (136-145)
--- NOTE | 2018-11-16 05:29 | Emergency Room Report ---
History of Present Illness General Chief Complaint: Dyspnea/Respdistress Source: Patient Present Illness HPI This is a 58-year-old female with a history of hypertension and morbid obesity. She presents with complaint of shortness of breath. She was just discharged from the hospital yesterday for admission for CHF. Echocardiogram showed ejection fraction of 65 to 70%. She had mild left diastolic dysfunction and pulmonary hypertension. She complained of increasing shortness of breath. Worse when she is sleep. Worse when she lay flat. Feel like she cannot catch her breath. Also with increasing lower extremity swelling. No chest pain. Better sitting up. Denies any other complaint. Allergies: Coded Allergies: Basil (Verified Allergy, Unknown, 11/16/18) Patient History Past Medical History: see triage record, old chart reviewed, HTN Past Surgical History: pacemaker Pertinent Family History: none Social History: Denies: smoking Now: No Immunizations: other Reviewed Nursing Documentation: PMH: Agreed; PSxH: Agreed Nursing Documentation-PMH Hx Cardiac Problems: Yes - CHF Hx Hypertension: Yes Hx Pacemaker: Yes Hx Diabetes: Yes Hx Cancer: No Hx Gastrointestinal Problems: Yes Hx Neurological Problems: No Review of Systems Eye: Denies: eye pain, blurred vision ENT: Denies: ear pain, nose congestion, throat swelling Respiratory: Reports: shortness of breath; Denies: cough Cardiovascular: Denies: chest pain, palpitations Gastrointestinal: Denies: abdominal pain, diarrhea, nausea, vomiting Musculoskeletal: Denies: back pain, joint pain Skin: Denies: rash Neurological: Denies: headache, numbness Endocrine: Denies: increased thirst, increased urine Hematologic/Lymphatic: Denies: easy bruising All Other Systems: negative except mentioned in HPI Physical Exam Vital Signs Date Time Temp Pulse Resp B/P (MAP) Pulse Ox O2 Delivery O2 Flow Rate FiO2 11/16/18 04:37 98.4 86 28 120/81 (94) 95 Room Air 11/16/18 04:40 2.0 Vitals unremarkable Sp02 EP Interpretation: reviewed, normal General Appearance: well appearing, no apparent distress, alert, obese Head: normocephalic, atraumatic Eyes: bilateral eye PERRL, bilateral eye EOMI ENT: hearing grossly normal, normal pharynx Neck: full range of motion, supple, no meningismus Respiratory: chest non-tender, lungs clear, normal breath sounds Cardiovascular #1: regular rate, rhythm, no murmur Gastrointestinal: normal bowel sounds, non tender, no mass, no organomegaly, no bruit, non-distended Musculoskeletal: back normal, gait/station normal, normal range of motion, other - There is trace edema of her ankles Neurologic: alert, oriented x3 Psychiatric: mood/affect normal Medical Decision Making Diagnostic Impression: Primary Impression: Dyspnea Qualified Codes: R06.00 - Dyspnea, unspecified Additional Impressions: CHF (congestive heart failure) Qualified Codes: I50.33 - Acute on chronic diastolic (congestive) heart failure Morbid obesity with BMI of 45.0-49.9, adult ER Course Patient presents with dyspnea. Her echocardiogram showed just mild left diastolic dysfunction. She also has pulmonary hypertension. Based on her weight and body habitus, I suspect the main component of her dyspnea is sleep apnea. No evidence of ACS, PE, dissection to name a few. Will discharge home. EKG Diagnostic Results Rate: normal Rhythm: NSR ST Segments: no acute changes Rhythm Strip Diag. Results EP Interpretation: yes Rate: 88 Rhythm: NSR, no PVC's, no ectopy Chest X-Ray Diagnostic Results Chest X-Ray Diagnostic Results : Chest X-Ray Ordered: Yes # of Views/Limited/Complete: 1 View Indication: Shortness of Breath EP Interpretation: Yes Interpretation: no consolidation, no effusion, no pneumothorax, other - CM with mild vasc congestion Impression: Other - CM Last Vital Signs Date Time Temp Pulse Resp B/P (MAP) Pulse Ox O2 Delivery O2 Flow Rate FiO2 11/16/18 04:45 98.2 85 24 129/80 96 Nasal Cannula 2.0 Status: improved Disposition: HOME, SELF-CARE Condition: Stable Referrals: NON PHYSICIAN (PCP) Patient Instructions: Shortness of Breath, [id number] Additional Instructions: Continue with your medication. Follow-up with your doctor in a week. You may need referral for sleep study to rule out sleep apnea. Weigh yourself every day. Return if symptoms worsen. Edgard Gabriel MD Nov 16, 2018 05:29
--- NOTE | 2018-11-16 05:42 | NUR ---
ED Nurse Note: Female pt prefers to use urinals.
[2018-11-16 06:11] VITALS: BP 136/70
--- NOTE | 2018-11-16 06:59 | NUR ---
ED Nurse Note: Pt states she feels the pain medication and says she can naot walk yet. Will monitor pt.
--- NOTE | 2018-11-16 13:13 | Diagnostic Imaging Report ---
Indication: Dyspnea Comparison: 11/03/2018 A single view chest radiograph was obtained. Findings: Pulmonary vascular congestion is noted. There is a pacemaker on the left side. Heart is enlarged. IMPRESSION: CHF
--- NOTE | 2018-11-16 16:31 | Cardiology Report ---
APPROVED REPORT EKG Measurement Heart [id number] Sinus rhythm with occasional premature ventricular complexes Otherwise normal ECG
== END | disposition home or self-care (01) ==
LOC: EMR 04:54
DX: I11.0 Hypertensive heart disease with heart failure (principal); I50.9 Heart failure, unspecified; E11.9 Type 2 diabetes mellitus without complications; E66.01 Morbid (severe) obesity due to excess calories; Z68.42 Body mass index [BMI] 45.0-49.9, adult
CPT/HCPCS: 36415; 71045; 80048; 83880; 84484; 85025; 93005; 96374; 99284; J1940

== ENCOUNTER 2018-11-17 07:46 | Emergency (ER) | payer MEDICAID ==
[~2018-11-17] VITALS: Ht 175.3 cm; Wt 149.7 kg
[~2018-11-17 07:46] MED LIST changes: -HYDROcodone/Acetamin 5/325 tab ORAL ONE
[2018-11-17 08:00] VITALS: BP 117/99
--- NOTE | 2018-11-17 08:00 | NUR ---
ED Nurse Note: Patient walked in to ER due to bilateral swollen legs. She was seen at [facility] ER yesterday with the same symptoms. Has pacemaker on Left upper chest. Hx of HTN, DM, lukemia. Alert and oriented x4, verbally responsive. VSS.
[2018-11-17] MEDS ORDERED: Furosemide 40mg tab ORAL ONE (08:30)
[2018-11-17] MEDS ORDERED: HYDROcodone/Acetamin 5/325 tab ORAL ONE (08:30)
[2018-11-17 10:28] VITALS: BP 128/74
[2018-11-17 12:20] VITALS: BP 138/75
[2018-11-17] MEDS ORDERED: JANUVIA50 MG ORAL (12:29)
[2018-11-17] MEDS ORDERED: LIPITOR10 MG ORAL (12:29)
[2018-11-17] MEDS ORDERED: FUROSEMIDE40 MG ORAL (12:29)
[2018-11-17] MEDS ORDERED: COZAAR50 MG ORAL (12:29)
[2018-11-17] MEDS ORDERED: METFORMIN HCL500 M1 ORAL (12:29)
[2018-11-17] MEDS ORDERED: ASPIRIN81 MG ORAL (12:29)
[2018-11-17] MEDS ORDERED: ALLOPURINOL100 M1 ORAL (12:29)
[2018-11-17 12:40] VITALS: BP 127/71
--- NOTE | 2018-11-17 12:42 | NUR ---
ER DISCHARGE NOTE: Patient is cleared to be discharged per ERMD, pt is aox4, on room air, with stable vital signs. pt was given dc and prescription instructions, pt was able to verbalize understanding, pt id band removed without complications. pt is able to ambulate with steady gait. pt took all belongings.
--- NOTE | 2018-11-17 13:56 | Emergency Room Report ---
History of Present Illness General Chief Complaint: Edema Source: Patient, Medical Record Present Illness HPI 58-year-old female presents ED for evaluation. States she is having swelling in her legs. History of CHF. States she was recently admitted here and discharged. States that her medications are at another friend's house and has not been able to take them. Denies chest pain or shortness of breath. Denies pain in her legs from the swelling, dull, 8 out of 10, nonradiating. No other aggravating relieving factors. 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" Hx Gastrointestinal Problems: Yes Hx Neurological Problems: No Review of Systems All Other Systems: negative except mentioned in HPI Physical Exam Vital Signs Date Time Temp Pulse Resp B/P (MAP) Pulse Ox O2 Delivery O2 Flow Rate FiO2 11/17/18 07:55 98.8 82 19 117/99 (105) 97 Room Air Sp02 EP Interpretation: reviewed, normal General Appearance: no apparent distress, alert, GCS 15, non-toxic, obese Head: normocephalic, atraumatic Eyes: bilateral eye normal inspection, bilateral eye PERRL ENT: hearing grossly normal, normal pharynx, no angioedema, normal voice Neck: full range of motion, supple/symm/no masses Respiratory: chest non-tender, lungs clear, normal breath sounds, speaking full sentences Cardiovascular #1: regular rate, rhythm, no edema Cardiovascular #2: 2+ carotid (R), 2+ carotid (L), 2+ radial (R), 2+ radial (L) , 2+ dorsalis pedis (R), 2+ dorsalis pedis (L) Gastrointestinal: normal bowel sounds, non tender, soft, non-distended, no guarding, no rebound Rectal: deferred Genitourinary: normal inspection, no CVA tenderness Musculoskeletal: back normal, gait/station normal, normal range of motion, non- tender, swelling - 2+ pitting edema b/l LEs Neurologic: alert, oriented x3, responsive, motor strength/tone normal, sensory intact, speech normal Psychiatric: judgement/insight normal, memory normal, mood/affect normal, no suicidal/homicidal ideation Reflexes: 3+ bicep (R), 3+ bicep (L), 3+ tricep (R), 3+ tricep (L), 3+ knee (R) , 3+ knee (L) Lymphatic: no adenopathy Medical Decision Making Diagnostic Impression: Primary Impression: Edema Qualified Codes: R60.9 - Edema, unspecified Additional Impression: CHF (congestive heart failure) Qualified Codes: I50.9 - Heart failure, unspecified ER Course Hospital Course 58 yo female presents ED with leg swelling. History of CHF Differential diagnoses include: CHF, cellulitis, peripheral edema Clinical course Patient placed on stretcher. on dry wall sprayer. After initial history was obese female in no acute distress. Lungs clear. Some pitting edema lower extremities. vitalsl stable. Patient in no signs of distress. Not short of breath. I reviewed EMR. Patient was seen here yesterday 11/16 same presentation. Patient had a work-up which included chest x-ray, EKG, labs which were unremarkable. Patient was given Lasix and subsequently discharged and asked to fill her prescriptions. Given negative work-up yesterday I see no reason to repeat work-up at this time. Patient given Lasix here. Patient diuresed in ED. Patient given refills of her prescriptions as she cannot locate her prescriptions at this time. Will provide referrals as well for PMD I. I feel this is a highly complex case requiring extensive working including EKG/Rhythm strip, Xray/CT/US, Blood/urine lab work, repeat exams while in ED, and administration of strong opiates/narcotics for pain control, admission to hospital or close patient follow up. Diagnosis - CHF, edema stable and discharged to home. Follow-up with PMD. Return to ED if symptoms recur or worsened Last Vital Signs Date Time Temp Pulse Resp B/P (MAP) Pulse Ox O2 Delivery O2 Flow Rate FiO2 11/17/18 12:40 98.1 80 19 127/71 95 Room Air Status: improved Disposition: HOME, SELF-CARE Condition: Stable Scripts Losartan Potassium* (COZAAR*) 50 Mg Tablet 50 MG ORAL TWICE A DAY for 30 Days, TAB Prov: Kyree Garces MD 11/17/18 Sitagliptin (Januvia) 50 Mg Tablet 50 MG ORAL ACBREAKFAST for 30 Days, TAB Prov: Kyree Garces MD 11/17/18 Furosemide* (LASIX*) 40 Mg Tablet 40 MG ORAL DAILY for 30 Days, TAB Prov: Kyree Garces MD 11/17/18 Atorvastatin Calcium* (LIPITOR*) 10 Mg Tablet 10 MG ORAL BEDTIME for 30 Days, TAB Prov: Kyree Garces MD 11/17/18 Aspirin* (ASPIRIN*) 81 Mg Tab.chew 81 MG ORAL DAILY for 30 Days, TAB Prov: Kyree Garces MD 11/17/18 Allopurinol* (ALLOPURINOL*) 100 Mg Tablet 300 MG ORAL TWICE A DAY for 30 Days, TAB Prov: Kyree Garces MD 11/17/18 Metformin Hcl* (METFORMIN HCL*) 500 Mg Tablet 500 MG ORAL TWICE A DAY for 30 Days, #60 TAB Prov: Kyree Garces MD 11/17/18 Referrals: Shannon Lanier. [facility] Patient Instructions: Peripheral Edema Kyree Garces MD Nov 17, 2018 13:56
== END 2018-11-17 12:42 | disposition home or self-care (01) ==
LOC: EMR 08:32
DX: I50.9 Heart failure, unspecified (principal); R60.9 Edema, unspecified; I11.0 Hypertensive heart disease with heart failure; Z95.0 Presence of cardiac pacemaker; E11.9 Type 2 diabetes mellitus without complications; C95.91 Leukemia, unspecified, in remission
CPT/HCPCS: 99283

== ENCOUNTER 2018-11-18 09:04 | Inpatient (IN) | payer MEDICAID ==
[~2018-11-18] VITALS: Ht 175.3 cm; Wt 183.3 kg
[2018-11-18 09:21] VITALS: BP 93/78
--- NOTE | 2018-11-18 09:21 | NUR ---
ED Nurse Note: pt called ER from in her car in the parking lot asking to assist her to come in. pt drove to ER due to BLE edema and pain 08/27 which has not been improved since yesterday after being discharged from here [facility] for the same symptoms. prescription present in her bag and pt reported not taking medications because the medication is in her friend's car and the friend is out of town. pt able to ambulate a short distance with assist. skin clean and intact. general body edema noted. no SOB noted at this time. pt aao x4 and cooperative. pt is in gown and on panel monitor. vss as documented. no acute distress noted at this time.
--- NOTE | 2018-11-18 09:40 | NUR ---
ED Nurse Note: received verbal order from ERMJuan R for accu check. the result 128mg/dl reported to ERMD.
--- NOTE | 2018-11-18 09:42 | Emergency Room Report ---
History of Present Illness General Chief Complaint: Edema Source: Patient Present Illness HPI Patient is a 58-year-old female who presents after an persistent lower extremity swelling. Patient had been seen at this facility yesterday. She had recent hospitalization due to congestive heart failure. Patient reports not being able to take her medications as discharge. She had been given prescriptions of Lasix which she has not been able to fill. She denies any fever. She reports having increased leg swelling. She states that she feels short of breath. She is type II diabetic.Patient reports having worsening lower extremity swelling. She also reports having some increased difficulty with breathing. 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" Hx Gastrointestinal Problems: Yes Hx Neurological Problems: No Review of Systems All Other Systems: negative except mentioned in HPI Physical Exam Vital Signs Date Time Temp Pulse Resp B/P (MAP) Pulse Ox O2 Delivery O2 Flow Rate FiO2 11/18/18 09:16 97.3 91 18 93/78 (83) 95 Room Air Sp02 EP Interpretation: reviewed, normal General Appearance: normal inspection, well appearing, no apparent distress, alert, GCS 15, obese, Chronically Ill Head: atraumatic ENT: normal ENT inspection, hearing grossly normal, normal voice Neck: normal inspection, full range of motion, supple, no bony tend Respiratory: normal inspection, no respiratory distress, no retraction, no wheezing Cardiovascular #1: regular rate, rhythm, edema - 2 +edema Gastrointestinal: normal inspection, normal bowel sounds, non tender, soft, no guarding, no hernia Genitourinary: no CVA tenderness Musculoskeletal: normal inspection, back normal, normal range of motion Neurologic: normal inspection, alert, oriented x3, responsive, mortgage protection specialist III-XII nml as tested, speech normal Psychiatric: normal inspection, judgement/insight normal, mood/affect normal Medical Decision Making Diagnostic Impression: Primary Impression: CHF (congestive heart failure) Additional Impression: Morbid obesity with BMI of 45.0-49.9, adult ER Course Patient presented for shortness of breath. Differential included but was not limited to anemia, pneumonia, pneumothorax, myocardial infarction, pericardial effusion, congestive heart failure, acidosis because of complexity of patient's case laboratory testing and imaging studies were ordered.. EKG interpreted by me showed normal sinus rhythm without acute ST or T wave changes. Patient was given IV Lasix. She was noted to be poorly compliant with her medications. Patient appears to be unable or unwilling to obtain her medications. Patient was discussed with for admission due to panel physician. Labs Test 11/18/18 09:15 11/18/18 09:45 Urine Color Yellow Urine Appearance Clear Urine pH 5 (4.5-8.0) Urine Specific [place] 1.020 (1.005-1.035) Urine Protein 1+ (NEGATIVE) Urine Glucose (UA) Negative (NEGATIVE) Urine Ketones 1+ (NEGATIVE) Urine Blood Negative (NEGATIVE) Urine Nitrite Negative (NEGATIVE) Urine Bilirubin Negative (NEGATIVE) Urine Urobilinogen 1 MG/DL (0.0-1.0) Urine Leukocyte Esterase 1+ (NEGATIVE) Urine RBC 0 /HPF (0 - 2) Urine WBC 2-4 /HPF (0 - 2) Urine Squamous Epithelial Cells Few /LPF (NONE/OCC) Urine Bacteria Few /HPF (NONE) Urine Mucus Few /LPF (NONE/OCC) Urine Opiates Screen Positive (NEGATIVE) Urine Barbiturates Screen Negative (NEGATIVE) Phencyclidine (PCP) Screen Negative (NEGATIVE) Urine Amphetamines Screen Negative (NEGATIVE) Urine Benzodiazepines Screen Negative (NEGATIVE) Urine Cocaine Screen Negative (NEGATIVE) Urine Marijuana (THC) Screen Negative (NEGATIVE) White Blood Count 9.5 K/UL (4.8-10.8) Red Blood Count 4.40 M/UL (4.20-5.40) Hemoglobin 12.5 G/DL (12.0-16.0) Hematocrit 40.2 % (37.0-47.0) Mean Corpuscular Volume 91 FL (80-99) Mean Corpuscular Hemoglobin 28.4 PG (27.0-31.0) Mean Corpuscular Hemoglobin Concent 31.0 G/DL (32.0-36.0) Red Cell Distribution Width 13.8 % (11.6-14.8) Platelet Count 305 K/UL (150-450) Mean Platelet Volume 11.1 FL (6.5-10.1) Neutrophils (%) (Auto) 53.4 % (45.0-75.0) Lymphocytes (%) (Auto) 33.5 % (20.0-45.0) Monocytes (%) (Auto) 6.3 % (1.0-10.0) Eosinophils (%) (Auto) 4.5 % (0.0-3.0) Basophils (%) (Auto) 2.2 % (0.0-2.0) EKG Diagnostic Results Rate: normal Rhythm: NSR ST Segments: no acute changes Last Vital Signs Date Time Temp Pulse Resp B/P (MAP) Pulse Ox O2 Delivery O2 Flow Rate FiO2 11/18/18 09:21 97.3 91 18 93/78 95 Room Air Status: unchanged Disposition: PLACE IN OBSERVATION Condition: Serious Atul Bennett MD Nov 18, 2018 09:42
--- NOTE | 2018-11-18 09:47 | NUR ---
ED Nurse Note: x-ray at bedside.
[2018-11-18 09:49] LABS: APPEARANCE,URINE CLEAR; BILIRUBIN, URINE NEGATIVE (NEGATIVE); GLUCOSE, URINE (UA) NEGATIVE (NEGATIVE); KETONES,URINE 1+ (NEGATIVE); LEUKOCYTE ESTERASE ,URINE 1+ (NEGATIVE); NITRITE,URINE NEGATIVE (NEGATIVE); PH,URINE 5 (4.5-8.0); PROTEIN,URINE 1+ (NEGATIVE); UROBILINOGEN,URINE 1 MG/DL (0.0-1.0)
[2018-11-18 10:00] LABS: BASOPHILS % (AUTO) 2.2 % (0.0-2.0); EOSINOPHILS % (AUTO) 4.5 % (0.0-3.0); HEMATOCRIT 40.2 % (37.0-47.0); HEMOGLOBIN 12.5 G/DL (12.0-16.0); LYMPHOCYTES % (AUTO) 33.5 % (20.0-45.0); MEAN CORPUSCULAR VOLUME 91 FL (80-99); MONOCYTES % (AUTO) 6.3 % (1.0-10.0); NEUTROPHILS % (AUTO) 53.4 % (45.0-75.0); PLATELET COUNT 305 K/UL (150-450); RED CELL DISTRIBUTION WIDTH 13.8 % (11.6-14.8); WHITE BLOOD COUNT 9.5 K/UL (4.8-10.8)
[2018-11-18 10:02] LABS: COLOR,URINE YELLOW
[2018-11-18 10:21] LABS: ANION GAP 7 mmol/L (5-15); BLOOD UREA NITROGEN 15 mg/dL (7-18); CALCIUM 9.4 MG/DL (8.5-10.1); CARBON DIOXIDE 31 MMOL/L (21-32); CHLORIDE 106 MMOL/L (98-107); CREATININE 0.8 MG/DL (0.55-1.30); POTASSIUM 3.9 MMOL/L (3.5-5.1); SODIUM 144 MMOL/L (136-145)
[2018-11-18 10:29] LABS: ALANINE AMINOTRANSFERASE 20 U/L (12-78); ALBUMIN 3.2 G/DL (3.4-5.0); ALKALINE PHOSPHATASE 70 U/L (46-116); ASPARTATE AMINO TRANSFERASE 20 U/L (15-37); BILIRUBIN,TOTAL 0.4 MG/DL (0.2-1.0); CREATINE KINASE 58 U/L (26-308)
--- NOTE | 2018-11-18 10:44 | Diagnostic Imaging Report ---
EXAM: XR Chest, 1 View CLINICAL HISTORY: Shortness of breath TECHNIQUE: Frontal view of the chest. COMPARISON: Chest x-ray dated 11/16/18 FINDINGS: Lungs: Pulmonary vascular congestion, not significantly changed. No new consolidation. Pleural space: Unremarkable. The costophrenic angles are sharp. No visible pneumothorax. Heart: Cardiomegaly. Mediastinum: Persistent widened superior mediastinum. Bones/joints: Unremarkable. Tubes, lines and devices: Cardiac pacer in the left chest wall with the lead tips in the right atrium and right ventricle regions. IMPRESSION: 1. No significant interval change compared to the prior chest x-ray. Cardiomegaly with pulmonary vascular congestion, suggesting CHF. 2. Persistent widened superior mediastinum. Although this is magnified by portable AP technique, this may suggest underlying aortic aneurysm. If there is continued clinical concern, consider a CT of the chest.
[2018-11-18 11:16] LABS: CKMB < 0.5 NG/ML (0.0-3.6)
--- NOTE | 2018-11-18 11:41 | NUR ---
ED Nurse Note: belongings list done . mrsa/vre/cre swabs done and ordered.
--- NOTE | 2018-11-18 12:50 | NUR ---
ED Nurse Note: report given to Min, RN
--- NOTE | 2018-11-18 12:53 | NUR ---
ED Nurse Note: pt left unit with 1 RN and 1 neurodiagnostic tech in stable condition.
--- NOTE | 2018-11-18 13:05 | NUR ---
NURSE NOTES: Received report from YOSSI Casey. Patient transferred from ED to tele, propagation worker on, belonging list checked with RN. No active s/s cardiac, respiratory distress noticed at this time. Patient AOx4, SR with HR 91. IV on right AC 20G, asymptomatic, patent, intact. Skin is intact, patient able to sit up self, on room air. Bed in lowest position, side rails upx2, call light within reach. Will continue to monitor.
--- NOTE | 2018-11-18 14:21 | NUR ---
NURSE NOTES: Received admission orders from Dr. Serrano. Order noted, entered, carried out.
--- NOTE | 2018-11-18 15:25 | NUR ---
NURSE NOTES: Per Dr. Serrano, no need to repeat 2D echo since last 2D echo done on 11/04/18. Order noted, entered, carried out.
[2018-11-18] MEDS: HYDROcodone/Acetamin 5/325 tab ORAL PRN (15:41)
[2018-11-18] MEDS: metFORMIN 500mg tab ORAL SCH (17:07)
[2018-11-18] MEDS: NovoLOG Insulin Flexpen SUBQ SCH ×2 (17:10→22:13)
[2018-11-18] MEDS ORDERED: Losartan 50mg tab ORAL SCH (18:00)
--- NOTE | 2018-11-18 18:54 | NUR ---
NURSE NOTES: Dr. Serrano made aware patient requesting for cough medication. Per Dr. Serrano, guaifenesin/dextromethorphan 10ml PO 1 4h prn. Order noted, entered, carried out.
--- NOTE | 2018-11-18 19:36 | NUR ---
HAND-OFF: Report given to YOSSI Cerna.
--- NOTE | 2018-11-18 19:37 | NUR ---
NURSE NOTES: pt is alert and oriented x4. No active s/sx cardiac, respiratory distress noticed at this time. Patient AOx4, NSR, IV on right AC 20G, asymptomatic, patent, intact. Skin is intact, patient able to position independently, on room air. Bed in lowest position, side rails upx2, call light within reach. Will continue to monitor.
[2018-11-18 20:00] VITALS: BP 106/60
--- NOTE | 2018-11-18 20:40 | Cardiology Progress Note ---
Assessment/Plan Assessment/Plan The patient is seen and examined, full consult note will be dictated shortly. Objective Last 24 Hour Vital Signs Date Time Temp Pulse Resp B/P (MAP) Pulse Ox O2 Delivery O2 Flow Rate FiO2 11/18/18 17:07 105/72 11/18/18 16:00 70 11/18/18 13:30 Room Air 11/18/18 12:52 98.0 89 18 103/72 98 Room Air 11/18/18 09:21 97.3 91 18 93/78 95 Room Air 11/18/18 09:21 91 18 Room Air 11/18/18 09:16 97.3 91 18 93/78 (83) 95 Room Air Intake and Output 11/17/18 11/18/18 19:00 07:00 # Bowel Movements 1 Laboratory Tests Test 11/18/18 09:15 11/18/18 09:45 Urine Color Yellow Urine Appearance Clear Urine pH 5 (4.5-8.0) Urine Specific [place] 1.020 (1.005-1.035) Urine Protein 1+ (NEGATIVE) H Urine Glucose (UA) Negative (NEGATIVE) Urine Ketones 1+ (NEGATIVE) H Urine Blood Negative (NEGATIVE) Urine Nitrite Negative (NEGATIVE) Urine Bilirubin Negative (NEGATIVE) Urine Urobilinogen 1 MG/DL (0.0-1.0) H Urine Leukocyte Esterase 1+ (NEGATIVE) H Urine RBC 0 /HPF (0 - 2) Urine WBC 2-4 /HPF (0 - 2) Urine Squamous Epithelial Cells Few /LPF (NONE/OCC) Urine Bacteria Few /HPF (NONE) Urine Mucus Few /LPF (NONE/OCC) H Urine Opiates Screen Positive (NEGATIVE) H Urine Barbiturates Screen Negative (NEGATIVE) Phencyclidine (PCP) Screen Negative (NEGATIVE) Urine Amphetamines Screen Negative (NEGATIVE) Urine Benzodiazepines Screen Negative (NEGATIVE) Urine Cocaine Screen Negative (NEGATIVE) Urine Marijuana (THC) Screen Negative (NEGATIVE) White Blood Count 9.5 K/UL (4.8-10.8) Red Blood Count 4.40 M/UL (4.20-5.40) Hemoglobin 12.5 G/DL (12.0-16.0) Hematocrit 40.2 % (37.0-47.0) Mean Corpuscular Volume 91 FL (80-99) Mean Corpuscular Hemoglobin 28.4 PG (27.0-31.0) Mean Corpuscular Hemoglobin Concent 31.0 G/DL (32.0-36.0) L Red Cell Distribution Width 13.8 % (11.6-14.8) Platelet Count 305 K/UL (150-450) Mean Platelet Volume 11.1 FL (6.5-10.1) H Neutrophils (%) (Auto) 53.4 % (45.0-75.0) Lymphocytes (%) (Auto) 33.5 % (20.0-45.0) Monocytes (%) (Auto) 6.3 % (1.0-10.0) Eosinophils (%) (Auto) 4.5 % (0.0-3.0) H Basophils (%) (Auto) 2.2 % (0.0-2.0) H Sodium Level 144 MMOL/L (136-145) Potassium Level 3.9 MMOL/L (3.5-5.1) Chloride Level 106 MMOL/L (98-107) Carbon Dioxide Level 31 MMOL/L (21-32) Anion Gap 7 mmol/L (5-15) Blood Urea Nitrogen 15 mg/dL (7-18) Creatinine 0.8 MG/DL (0.55-1.30) Estimat Glomerular Filtration Rate > 60 mL/min (>60) Glucose Level 121 MG/DL (74-106) H Calcium Level 9.4 MG/DL (8.5-10.1) Total Bilirubin 0.4 MG/DL (0.2-1.0) Aspartate Amino Transf (AST/SGOT) 20 U/L (15-37) Alanine Aminotransferase (ALT/SGPT) 20 U/L (12-78) Alkaline Phosphatase 70 U/L (46-116) Total Creatine Kinase 58 U/L (26-308) Creatine Kinase MB < 0.5 NG/ML (0.0-3.6) Creatine Kinase MB Relative Index 0.8 Troponin I 0.000 ng/mL (0.000-0.056) Pro-B-Type Natriuretic Peptide 22 pg/mL (0-125) Total Protein 6.5 G/DL (6.4-8.2) Albumin 3.2 G/DL (3.4-5.0) L Globulin 3.3 g/dL Albumin/Globulin Ratio 1.0 (1.0-2.7) Lipase 84 U/L (73-393) Microbiology Date/Time Source Procedure Growth Status 11/18/18 11:30 Rectum Received Patrick Rinaldi MD Nov 18, 2018 20:40
--- NOTE | 2018-11-18 23:00 | Consultation ---
DATE OF CONSULTATION: 11/18/2018 CARDIOLOGY CONSULTATION CONSULTING PHYSICIAN: Patrick Rinaldi M.D. REFERRING PHYSICIAN: Dr. Lauren Serrano. REASON FOR CONSULTATION: Management of lower extremity edema and evaluation for possibility of congestive heart failure. HISTORY OF PRESENT ILLNESS: The patient is a very unfortunate 58-year-old lady who presents to the hospital after progressive worsening of shortness of breath and nocturnal dyspnea as well as progressive worsening of lower extremity edema, as she had run out of diuretics after recent hospitalization. According to the records, the patient has history of congestive heart failure and was placed on diuretics. The patient also was diagnosed with sinus pauses during sleep, dual-chamber pacemaker was implanted at [facility] in [place]. The patient does not receive any CPAP mask and she claims that she did not have sleep study done and she was not seen by any physician in this regard. At the time of arrival to the hospital, blood pressure was 93/78 mmHg and heart rate was 91. Her cardiovascular risk factors includes hypertension and diabetes mellitus. PAST MEDICAL HISTORY: 1. History of congestive heart failure. 2. History of hypertension. 3. History of diabetes mellitus. 4. Sinus pause during sleep, status post dual-chamber pacemaker implantation at [facility] in [place]. 5. History of leukemia ____. ALLERGIES: ____. PAST SURGICAL HISTORY: Dual-chamber pacemaker implantation. FAMILY HISTORY: No premature coronary artery disease in the first-degree relatives. SOCIAL HISTORY: Denies any tobacco, alcohol, or illicit drug use. REVIEW OF SYSTEMS: A 12-system review done essentially negative except what was mentioned in the history of present illness. MEDICATIONS: List of medication including allopurinol 100 mg 3 tablets twice daily, aspirin 81 mg p.o. daily, Lipitor 10 mg p.o. at bedtime, Lasix 40 mg p.o. daily, Cozaar 50 mg twice daily, metformin 500 mg twice daily, and Januvia 50 mg p.o. daily. PHYSICAL EXAMINATION: VITAL SIGNS: Blood pressure at the time of arrival to the hospital was 93/78, respirations of 18, pulse of 91, temperature 97.3 degrees Fahrenheit, and O2 saturation 95% on room air. GENERAL: The patient is a very unfortunate 58-year-old female, morbidly obese, sitting in a chair, not in apparent respiratory distress. HEENT: Atraumatic and normocephalic. Pupils are equal, round, and reactive to light and accommodation. Extraocular muscles intact. NECK: Could not assess JVP in the sitting position. The patient also is morbidly obese. No carotid bruit. Carotid upstrokes 2+ bilaterally. CARDIOVASCULAR: Normal S1 and S2. Regular rate and rhythm. No murmurs, gallops, or rubs. PMI is at fourth intercostal space in the midclavicular. LUNGS: Diminished breath sounds in both lungs. ABDOMEN: Obese. I do not appreciate hepatosplenomegaly. Positive bowel sounds. EXTREMITIES: There is 1+ bilateral lower extremity edema. LABORATORY FINDINGS: WBC 9.5, hemoglobin 12.5, hematocrit of 40.2, and platelet count is 305,000. Sodium 144, potassium 3.9, chloride 106, bicarbonate 31, BUN of 15, creatinine 0.8, glucose is 121, and calcium 9.4. Troponin I is 0. ProBNP was 22. Chest x-ray showed cardiomegaly with widened mediastinum, possible aortic aneurysm. Consideration for CT of chest to be made, no acute cardiopulmonary disease. 12-lead electrocardiogram shows sinus rhythm at a rate of 77 with atrial and ventricular sense, one single ventricular premature complex and no evidence of acute ischemia, QT interval is borderline at 461 millisecond. A 2D echocardiography from November 04 showed normal LV systolic function with mild LV hypertrophy, LVEF over 65 to 70%, normal right atrial and ventricular cavity size with presence of a pacemaker and RVSP of 44 millimeter of mercury consistent with moderate pulmonary hypertension and grade 1 LV diastolic dysfunction. ASSESSMENT AND PLAN: The patient is a very unfortunate 58-year-old female was seen in Cardiology consultation. 1. Dyspnea and lower extremity edema, most likely due to obesity hypoventilation syndrome with some burdening with associated moderate pulmonary hypertension. Lower extremity edema could also be due to obesity. Per say, I agree with continuation of diuretic. Normal brain natriuretic peptide essentially rules out congestive heart failure. Also 2D echocardiography from October this year from this facility was reviewed and shows hyperdynamic LV systolic function with LVEF approximately 75% and presence of a normal intracardiac filling pressures. 2. Widened mediastinum, some question about ascending aortic aneurysm. I would like to obtain a CT angiography of the chest for evaluation of the aorta. 3. Moderate pulmonary hypertension, most likely due to obesity hypoventilation syndrome or obstructive sleep apnea. The patient requires pulmonary consult, sleep study most likely CPAP mask placement. I would defer this recommendation to Dr. Serrano and possible pulmonary strategic sourcing consultant. 4. History of diabetes mellitus. The patient will benefit from aspirin and statins. 5. History of hypertension. I would agree with continuation of losartan, although the blood pressure in this admission had been running below, therefore losartan will be reduced to 25 mg p.o. daily. 6. We will continue to monitor blood pressure throughout this hospitalization. 7. Status post dual-chamber pacemaker implantation at [facility] due to sinus pauses during sleep, most likely due to obstructive sleep apnea. Currently, the patient has her own intrinsic rhythm. No further intervention is required at this time. I would like to thank Dr. Serrano for allowing me to participate in care of this patient. Patrick Rinaldi M.D. DR: ANIL JOB#: [id number] CC:
[2018-11-19] VITALS: BP 120/57
[2018-11-19] MEDS: HYDROcodone/Acetamin 5/325 tab ORAL PRN ×4 (00:11→23:43)
[2018-11-19] MEDS: Guaifenesin/DM 10ml syrup ORAL PRN ×2 (00:11→22:54)
[2018-11-19 04:00] VITALS: BP 138/76
[2018-11-19] MEDS: sitaGLIPtin 50mg tab ORAL SCH (06:36)
[2018-11-19] MEDS: NovoLOG Insulin Flexpen SUBQ SCH ×4 (06:37→20:41)
--- NOTE | 2018-11-19 07:15 | NUR ---
HAND-OFF: Report given to .Jory, RN
--- NOTE | 2018-11-19 07:16 | NUR ---
NURSE NOTES: Received report from Eryn/RN, Patient is awake, AAO x4, Lying semi-mclaughlin's, resting comfortably. On Room air, No acute distress/SOB noted at this time. IV on right AC, Patent, no bleeding or infiltration noted. Denies pain, Able to make needs known. Bed in low position and locked. Call light and personal belonging within reach. Will continue plan of care.
[2018-11-19 07:35] LABS: BASOPHILS % (AUTO) 2.2 % (0.0-2.0); EOSINOPHILS % (AUTO) 5.1 % (0.0-3.0); HEMATOCRIT 36.3 % (37.0-47.0); LYMPHOCYTES % (AUTO) 35.6 % (20.0-45.0); MEAN CORPUSCULAR VOLUME 87 FL (80-99); NEUTROPHILS % (AUTO) 50.2 % (45.0-75.0); PLATELET COUNT 289 K/UL (150-450); RED BLOOD COUNT 4.16 M/UL (4.20-5.40); RED CELL DISTRIBUTION WIDTH 13.4 % (11.6-14.8); WHITE BLOOD COUNT 10.2 K/UL (4.8-10.8)
[2018-11-19 08:00] VITALS: BP 119/71
[2018-11-19 08:01] LABS: ALANINE AMINOTRANSFERASE 15 U/L (12-78); ALBUMIN 2.9 G/DL (3.4-5.0); ALBUMIN/GLOBULIN RATIO 0.8 (1.0-2.7); ALKALINE PHOSPHATASE 67 U/L (46-116); ANION GAP 6 mmol/L (5-15); ASPARTATE AMINO TRANSFERASE 19 U/L (15-37); BILIRUBIN,TOTAL 0.4 MG/DL (0.2-1.0); BLOOD UREA NITROGEN 14 mg/dL (7-18); CALCIUM 9.1 MG/DL (8.5-10.1); CARBON DIOXIDE 33 MMOL/L (21-32); CHLORIDE 106 MMOL/L (98-107); CHOLESTEROL 154 MG/DL (< 200); CREATININE 0.8 MG/DL (0.55-1.30); HDL CHOLESTEROL 46 MG/DL (40-60); POTASSIUM 3.7 MMOL/L (3.5-5.1); SODIUM 145 MMOL/L (136-145); TRIGLYCERIDES 99 MG/DL (30-150)
--- NOTE | 2018-11-19 08:05 | History & Physical ---
History and Physical History & Physicial seen and examined. Dictation completed on 805 hrs Lauren Serrano MD Nov 19, 2018 08:05
--- NOTE | 2018-11-19 08:07 | General Progress Note ---
Assessment/Plan Status: stable Assessment/Plan: seen and examine. Full Dictation in progress A/P: CHF exacerbation Plan: will optimise meds current mgt Subjective Allergies: Coded Allergies: Basil (Verified Allergy, Unknown, 11/16/18) Objective Last 24 Hour Vital Signs Date Time Temp Pulse Resp B/P (MAP) Pulse Ox O2 Delivery O2 Flow Rate FiO2 11/19/18 04:00 98.6 69 18 138/76 (96) 95 69 11/19/18 04:00 69 11/19/18 00:00 98.6 76 18 120/57 (78) 95 76 11/19/18 00:00 75 11/18/18 21:00 Room Air 11/18/18 20:00 80 11/18/18 20:00 98.1 74 18 106/60 (75) 92 74 11/18/18 17:07 105/72 11/18/18 16:00 70 11/18/18 13:30 Room Air 11/18/18 12:52 98.0 89 18 103/72 98 Room Air 11/18/18 09:21 97.3 91 18 93/78 95 Room Air 11/18/18 09:21 91 18 Room Air 11/18/18 09:16 97.3 91 18 93/78 (83) 95 Room Air Intake and Output 11/18/18 11/19/18 19:00 07:00 Intake Total 800 ml Balance 800 ml Intake Oral 800 ml # Voids 1 2 # Bowel Movements 1 1 Laboratory Tests 11/18/18 09:15: Urine Color Yellow, Urine Appearance Clear, Urine pH 5, Urine Specific [place] 1.020, Urine Protein 1+H, Urine Glucose (UA) Negative, Urine Ketones 1+H, Urine Blood Negative, Urine Nitrite Negative, Urine Bilirubin Negative, Urine Urobilinogen 1H, Urine Leukocyte Esterase 1+H, Urine RBC 0, Urine WBC 2-4, Urine Squamous Epithelial Cells Few, Urine Bacteria Few, Urine Mucus FewH, Urine Opiates Screen PositiveH, Urine Barbiturates Screen Negative, Phencyclidine (PCP) Screen Negative, Urine Amphetamines Screen Negative, Urine Benzodiazepines Screen Negative, Urine Cocaine Screen Negative, Urine Marijuana (THC) Screen Negative 11/18/18 09:45: White Blood Count 9.5, Red Blood Count 4.40, Hemoglobin 12.5, Hematocrit 40.2, Mean Corpuscular Volume 91, Mean Corpuscular Hemoglobin 28.4, Mean Corpuscular Hemoglobin Concent 31.0L, Red Cell Distribution Width 13.8, Platelet Count 305, Mean Platelet Volume 11.1H, Neutrophils (%) (Auto) 53.4, Lymphocytes (%) (Auto) 33.5, Monocytes (%) (Auto) 6.3, Eosinophils (%) (Auto) 4.5H, Basophils (%) (Auto ) 2.2H, Sodium Level 144, Potassium Level 3.9, Chloride Level 106, Carbon Dioxide Level 31, Anion Gap 7, Blood Urea Nitrogen 15, Creatinine 0.8, Estimat Glomerular Filtration Rate > 60, Glucose Level 121H, Calcium Level 9.4, Total Bilirubin 0.4, Aspartate Amino Transf (AST/SGOT) 20, Alanine Aminotransferase ( ALT/SGPT) 20, Alkaline Phosphatase 70, Total Creatine Kinase 58, Creatine Kinase MB < 0.5, Creatine Kinase MB Relative Index 0.8, Troponin I 0.000, Pro-B- Type Natriuretic Peptide 22, Total Protein 6.5, Albumin 3.2L, Globulin 3.3, Albumin/Globulin Ratio 1.0, Lipase 84 11/18/18 20:45: Troponin I 0.026 11/19/18 06:50: White Blood Count 10.2, Red Blood Count 4.16L, Hemoglobin 12.0, Hematocrit 36.3L , Mean Corpuscular Volume 87, Mean Corpuscular Hemoglobin 28.8, Mean Corpuscular Hemoglobin Concent 33.0, Red Cell Distribution Width 13.4, Platelet Count 289, Mean Platelet Volume 9.4, Neutrophils (%) (Auto) 50.2, Lymphocytes (% ) (Auto) 35.6, Monocytes (%) (Auto) 7.0, Eosinophils (%) (Auto) 5.1H, Basophils (%) (Auto) 2.2H, Sodium Level 145, Potassium Level 3.7, Chloride Level 106, Carbon Dioxide Level 33H, Anion Gap 6, Blood Urea Nitrogen 14, Creatinine 0.8, Estimat Glomerular Filtration Rate > 60, Glucose Level 118H, Calcium Level 9.1, Total Bilirubin 0.4, Aspartate Amino Transf (AST/SGOT) 19, Alanine Aminotransferase (ALT/SGPT) 15, Alkaline Phosphatase 67, Troponin I [Pending], Total Protein 6.6, Albumin 2.9L, Globulin 3.7, Albumin/Globulin Ratio 0.8L, Hemoglobin A1c 7.5H, Triglycerides Level 99, Cholesterol Level 154, LDL Cholesterol 98, HDL Cholesterol 46, Cholesterol/HDL Ratio 3.3, Thyroid Stimulating Hormone (TSH) 3.151 Height (Feet): 5 Height (Inches): 9.00 Weight (Pounds): 280 Lauren Serrano MD Nov 19, 2018 08:07
[2018-11-19] MEDS: Aspirin Baby 81mg ORAL SCH (08:46)
[2018-11-19] MEDS: metFORMIN 500mg tab ORAL SCH ×2 (08:46→17:37)
[2018-11-19] MEDS: Losartan 50mg tab ORAL SCH (08:47)
[2018-11-19] MEDS: Enoxaparin 40mg Inj SUBQ SCH (08:48)
--- NOTE | 2018-11-19 10:00 | History and Physical Report ---
DATE OF ADMISSION: 11/18/2018 SOURCE OF INFORMATION AND HISTORY OF PRESENT ILLNESS: The patient is a 58-year-old female with history of coronary artery disease and cardiac arrhythmias, presented with worsening of shortness of breath and swelling on the lower extremities. Initial evaluation in the emergency room shows the low numbers, hypotension. Chest x-ray shows finding suggestive of CHF. The patient was admitted, received the IV diuresis, and was admitted to the floor. PAST MEDICAL HISTORY: Including but not limited to cardiac arrhythmias, CHF, hyperlipidemia, diabetes. CURRENT HOSPITAL MEDICATIONS: Including metformin 1000, sliding scale insulin, Lasix, aspirin. FAMILY HISTORY: Reviewed and noncontributory. REVIEW OF SYSTEMS: All 14 elements of review of systems reviewed pertinent positive and negative as above. ALLERGIES: NKDA. PAST SURGICAL HISTORY: Pacemaker placement. PHYSICAL EXAMINATION: VITAL SIGNS: Blood pressure 130/80, temperature 98.2, pulse oximetry 98% on room air, respiratory rate 18, and temperature 98.2. HEAD AND NECK: Atraumatic and normocephalic. CHEST: Clear to auscultation. HEART: S1, S2. Regular rate and rhythm. ABDOMEN: Soft. No organomegaly. MUSCULOSKELETAL: Positive for 2+ pitting edema in the lower extremity. NEUROLOGIC: The patient is awake, alert, oriented x3. LABORATORY DATA: Labs dated November 18 shows BUN 15, creatinine 0.8, and glucose of 120. Urine positive for opiates. ASSESSMENT AND PLAN: 1. CHF exacerbation. 2. Diabetes type 2. 3. Positive for opiate use as an outpatient. 4. Cardiomyopathy on pacemaker. PLAN OF CARE: I will continue optimization of the medications. Cardiology is consulted. Lauren Serrano M.D. DR: ZULEIMA JOB#: [id number] CC:
[2018-11-19 12:00] VITALS: BP 117/69
[2018-11-19 16:00] VITALS: BP 97/53
--- NOTE | 2018-11-19 18:51 | Cardiology Progress Note ---
Assessment/Plan Assessment/Plan 1. Dyspnea and lower extremity edema, most likely due to obesity hypoventilation syndrome, 2D echocardiography from October this year from this facility was reviewed and shows hyperdynamic LV systolic function with LVEF approximately 75% and presence of a normal intracardiac filling pressures. 2. Widened mediastinum, some question about ascending aortic aneurysm. I would like to obtain a CT angiography of the chest for evaluation of the aorta. 3. Moderate pulmonary hypertension, most likely due to obesity hypoventilation syndrome, consider pulmonary consult for sleep study/evaluation for CPAP mask. 4. History of diabetes mellitus. 5. History of hypertension, slightly hypotensive, decrease lasix to 20mg daily, losartan already down to 25mg daily. 6. Status post dual-chamber pacemaker implantation at [facility] due to sinus pauses associated with [place], currently the rhythm is the patient's intrinsic activity. Subjective Subjective Sinus rhythm at rate of 88. Objective Last 24 Hour Vital Signs Date Time Temp Pulse Resp B/P (MAP) Pulse Ox O2 Delivery O2 Flow Rate FiO2 11/19/18 16:00 88 11/19/18 16:00 97.7 75 23 97/53 (68) 93 75 11/19/18 12:00 93 11/19/18 12:00 97.7 96 22 117/69 (85) 90 82 11/19/18 09:00 Room Air 11/19/18 08:47 119/71 11/19/18 08:00 98.2 82 21 119/71 (87) 90 82 11/19/18 08:00 78 11/19/18 04:00 98.6 69 18 138/76 (96) 95 69 11/19/18 04:00 69 11/19/18 00:00 98.6 76 18 120/57 (78) 95 76 11/19/18 00:00 75 11/18/18 21:00 Room Air 11/18/18 20:00 80 11/18/18 20:00 98.1 74 18 106/60 (75) 92 74 Intake and Output 11/18/18 11/19/18 19:00 07:00 Intake Total 800 ml Balance 800 ml Intake Oral 800 ml # Voids 1 2 # Bowel Movements 1 1 Laboratory Tests Test 11/18/18 20:45 11/19/18 06:50 11/19/18 10:00 Troponin I 0.026 ng/mL (0.000-0.056) 0.017 ng/mL (0.000-0.056) 0.000 ng/mL (0.000-0.056) White Blood Count 10.2 K/UL (4.8-10.8) Red Blood Count 4.16 M/UL (4.20-5.40) L Hemoglobin 12.0 G/DL (12.0-16.0) Hematocrit 36.3 % (37.0-47.0) L Mean Corpuscular Volume 87 FL (80-99) Mean Corpuscular Hemoglobin 28.8 PG (27.0-31.0) Mean Corpuscular Hemoglobin Concent 33.0 G/DL (32.0-36.0) Red Cell Distribution Width 13.4 % (11.6-14.8) Platelet Count 289 K/UL (150-450) Mean Platelet Volume 9.4 FL (6.5-10.1) Neutrophils (%) (Auto) 50.2 % (45.0-75.0) Lymphocytes (%) (Auto) 35.6 % (20.0-45.0) Monocytes (%) (Auto) 7.0 % (1.0-10.0) Eosinophils (%) (Auto) 5.1 % (0.0-3.0) H Basophils (%) (Auto) 2.2 % (0.0-2.0) H Sodium Level 145 MMOL/L (136-145) Potassium Level 3.7 MMOL/L (3.5-5.1) Chloride Level 106 MMOL/L (98-107) Carbon Dioxide Level 33 MMOL/L (21-32) H Anion Gap 6 mmol/L (5-15) Blood Urea Nitrogen 14 mg/dL (7-18) Creatinine 0.8 MG/DL (0.55-1.30) Estimat Glomerular Filtration Rate > 60 mL/min (>60) Glucose Level 118 MG/DL (74-106) H Hemoglobin A1c 7.5 % (4.3-6.0) H Calcium Level 9.1 MG/DL (8.5-10.1) Total Bilirubin 0.4 MG/DL (0.2-1.0) Aspartate Amino Transf (AST/SGOT) 19 U/L (15-37) Alanine Aminotransferase (ALT/SGPT) 15 U/L (12-78) Alkaline Phosphatase 67 U/L (46-116) Total Protein 6.6 G/DL (6.4-8.2) Albumin 2.9 G/DL (3.4-5.0) L Globulin 3.7 g/dL Albumin/Globulin Ratio 0.8 (1.0-2.7) L Triglycerides Level 99 MG/DL (30-150) Cholesterol Level 154 MG/DL (< 200) LDL Cholesterol 98 mg/dL (<100) HDL Cholesterol 46 MG/DL (40-60) Cholesterol/HDL Ratio 3.3 (3.3-4.4) Thyroid Stimulating Hormone (TSH) 3.151 uiU/mL (0.358-3.740) Microbiology Date/Time Source Procedure Growth Status 11/18/18 11:30 Rectum Received Objective GENERAL: The patient is a very unfortunate 58-year-old female, morbidly obese, sitting in a chair, not in apparent respiratory distress. HEENT: Atraumatic and normocephalic. Pupils are equal, round, and reactive to light and accommodation. Extraocular muscles intact. NECK: Could not assess JVP in the sitting position. The patient also is morbidly obese. No carotid bruit. Carotid upstrokes 2+ bilaterally. CARDIOVASCULAR: Normal S1 and S2. Regular rate and rhythm. No murmurs, gallops, or rubs. PMI is at fourth intercostal space in the midclavicular. LUNGS: Diminished breath sounds in both lungs. ABDOMEN: Obese. I do not appreciate hepatosplenomegaly. Positive bowel sounds. EXTREMITIES: There is 1+ bilateral lower extremity edema. Patrick Rinaldi MD Nov 19, 2018 18:51
--- NOTE | 2018-11-19 19:29 | NUR ---
NURSE NOTES: RECEIVED PATIENT RESTING IN BED, NO COMPLAINTS OF PAIN AT THIS TIME. FALL PRECAUTIONS IN PLACE: CALL LIGHT, BEDSIDE TABLE AND COMMODE WITHIN REACH, BED IN LOW POSITION. PLAN OF CARE REVIEWED.
--- NOTE | 2018-11-19 19:45 | NUR ---
HAND-OFF: Report given to Breanna/RN, Patient is awake, in stable condition. Endorsed plan of care.
[2018-11-19 20:00] VITALS: BP 145/83
[2018-11-20] VITALS: BP 125/61
[2018-11-20 04:00] VITALS: BP 147/84
[2018-11-20] MEDS: sitaGLIPtin 50mg tab ORAL SCH (06:04)
[2018-11-20] MEDS: NovoLOG Insulin Flexpen SUBQ SCH ×4 (06:05→21:43)
--- NOTE | 2018-11-20 07:01 | NUR ---
HAND-OFF: Report given to Kun FRYE RN. PATIENT ASLEEP, NO SIGNS OF DISTRESS NOTED.
--- NOTE | 2018-11-20 07:12 | NUR ---
NURSE NOTES: Received report from Breanna/RN, Patient is asleep, Lying semi-mclaughlin's, resting comfortably. On Room air, No acute distress/SOB noted at this time. IV on right AC, Patent, no bleeding or infiltration noted. monitor and storage bin tender in place per protocol. Bed in low position and locked. Call light and personal belonging within reach. Will continue plan of care.
[2018-11-20 08:00] VITALS: BP 102/55
[2018-11-20] MEDS: metFORMIN 500mg tab ORAL SCH ×2 (08:47→17:31)
[2018-11-20] MEDS: Losartan 50mg tab ORAL SCH (08:47)
[2018-11-20] MEDS: HYDROcodone/Acetamin 5/325 tab ORAL PRN ×3 (08:47→21:46)
[2018-11-20] MEDS: Aspirin Baby 81mg ORAL SCH (08:48)
[2018-11-20] MEDS: Enoxaparin 40mg Inj SUBQ SCH (08:50)
--- NOTE | 2018-11-20 09:06 | General Progress Note ---
Assessment/Plan Status: stable Assessment/Plan: S: My sob is better O: seems comfortable, decline Chest pain PHYSICAL EXAMINATION:HEAD AND NECK: Atraumatic and normocephalic. CHEST: Clear to auscultation. HEART: S1, S2. Regular rate and rhythm. ABDOMEN: Soft. No organomegaly. MUSCULOSKELETAL: Positive for 2+ pitting edema in the lower extremity. NEUROLOGIC: The patient is awake, alert, oriented x3. LABORATORY DATA: Labs dated November 2st reviewed Meds: Reviewed and reconciled in the chart ASSESSMENT AND PLAN: 1. CHF exacerbation. 2. Diabetes type 2. 3. Positive for opiate use as an outpatient. 4. Cardiomyopathy on pacemaker. Plan: will optimise meds current mgt will followup with cardio recommendations Subjective Allergies: Coded Allergies: Basil (Verified Allergy, Unknown, 11/16/18) Objective Last 24 Hour Vital Signs Date Time Temp Pulse Resp B/P (MAP) Pulse Ox O2 Delivery O2 Flow Rate FiO2 11/20/18 08:47 102/55 11/20/18 04:00 76 11/20/18 04:00 98.2 81 18 147/84 (105) 95 82 11/20/18 00:00 98.2 86 18 125/61 (82) 95 82 11/20/18 00:00 82 11/19/18 21:00 Room Air 11/19/18 20:00 98.1 86 18 145/83 (103) 96 75 11/19/18 20:00 89 11/19/18 16:00 88 11/19/18 16:00 97.7 75 23 97/53 (68) 93 75 11/19/18 12:00 93 11/19/18 12:00 97.7 96 22 117/69 (85) 90 82 Intake and Output 11/19/18 11/20/18 19:00 07:00 Intake Total 320 ml 360 ml Balance 320 ml 360 ml Intake Oral 320 ml 360 ml # Voids 2 2 # Bowel Movements 1 Laboratory Tests 11/19/18 10:00: Troponin I 0.000 Height (Feet): 5 Height (Inches): 9.00 Weight (Pounds): 280 Lauren Serrano MD Nov 20, 2018 09:06
--- NOTE | 2018-11-20 11:12 | NUR ---
*-* NO INSURANCE INFORMATION IN THE BAR UNABLE TO SEND CLINICALS OR REVIEWS *-*
--- NOTE | 2018-11-20 11:23 | NUR ---
NURSE NOTES: Notified MD regarding Positive for VRE Rectum and MRSA Nares. No new order at this time.
[2018-11-20 12:00] VITALS: BP 141/69
--- NOTE | 2018-11-20 14:47 | NUR ---
CASE MANAGEMENT:REVIEW 58 YR OLD FEMALE WAS RECENTLY DISCHARGE NOW PRESENTS TO ER CC: BLE EDEMA. FORGOT HER MEDICATION IN FRIENDS CAR AND FRIEND IS NOW OUT OF TOWN SI: CHF EXACERBATION. MORBID OBESITY 97.3 91 18 93/78 95% ON RA GLUCOSE+121 IS: IV LASIX CHEST XRAY : TO TELEMETRY 11/20/18 SI: CHF EXACERBATION. PACEMAKER MORBIDLY OBESE 97.9 62 18 141/69 94% ON RA NO LABS TODAY IS: IV LASIX QD ASA PO QD LOVENOX SQ QD PROTONIX PO QD COZAAR PO QD JANUVIA PO QAM LIPITOR PO QHS ALLOPURINOL PO BID METFORMIN PO BID : TELEMETRY PLAN: DOWN GRADE TO MED/SURG
[2018-11-20 16:00] VITALS: BP 138/61
[2018-11-20] MEDS: Guaifenesin/DM 10ml syrup ORAL PRN ×2 (17:31→22:26)
--- NOTE | 2018-11-20 18:15 | NUR ---
NURSE NOTES: Patient transferred to [facility] 4E via Bed, and report given to Michael Chen/RN, Patient is in stable condition, No acute distress/SOB noted. early head start director removed per protocol. Belonging check done and signed. Chart and insulin given to RN.
--- NOTE | 2018-11-20 18:30 | NUR ---
NURSE NOTES: RECEIVED PT FROM YOSSI HARE FROM TELE. PT ARRIVED IN STABLE CONDITION. BELONGINGS CHECKED AT BEDSIDE, ALL ACCOUNTED. PT WAS ORIENTED TO ROOM. CALL LIGHT WITHIN REACH. BEDSIDE COMMODE AND URINAL PROVIDED PER PT'S REQUEST. WILL CONTINUE TO MONITOR.
--- NOTE | 2018-11-20 19:14 | NUR ---
HAND-OFF: Report given to Ana BERNARD RN.
--- NOTE | 2018-11-20 19:29 | Cardiology Progress Note ---
Assessment/Plan Assessment/Plan 1. Dyspnea and lower extremity edema, most likely due to obesity hypoventilation syndrome, 2D echocardiography from October this year from this facility was reviewed and shows hyperdynamic LV systolic function with LVEF approximately 75% and presence of a normal intracardiac filling pressures. 2. Widened mediastinum, some question about ascending aortic aneurysm. I would like to obtain a CT angiography of the chest for evaluation of the aorta. 3. Moderate pulmonary hypertension, most likely due to obesity hypoventilation syndrome, consider pulmonary consult for sleep study/evaluation for CPAP mask. 4. History of diabetes mellitus. 5. History of hypertension, continue losartan. 6. Status post dual-chamber pacemaker implantation at [facility] due to sinus pauses associated with BRAYDON, currently the rhythm is the patient's intrinsic activity. Subjective Subjective Sinus rhythm at rate of 71. Objective Last 24 Hour Vital Signs Date Time Temp Pulse Resp B/P (MAP) Pulse Ox O2 Delivery O2 Flow Rate FiO2 11/20/18 16:30 71 11/20/18 16:00 97.3 76 20 138/61 (86) 97 76 11/20/18 12:00 84 11/20/18 12:00 97.9 62 18 141/69 (93) 94 62 11/20/18 09:00 Room Air 11/20/18 08:47 102/55 11/20/18 08:00 98.0 84 20 102/55 (71) 95 84 11/20/18 08:00 87 11/20/18 04:00 76 11/20/18 04:00 98.2 81 18 147/84 (105) 95 82 11/20/18 00:00 98.2 86 18 125/61 (82) 95 82 11/20/18 00:00 82 11/19/18 21:00 Room Air 11/19/18 20:00 98.1 86 18 145/83 (103) 96 75 11/19/18 20:00 89 Intake and Output 11/19/18 11/20/18 19:00 07:00 Intake Total 320 ml 360 ml Balance 320 ml 360 ml Intake Oral 320 ml 360 ml # Voids 2 2 # Bowel Movements 1 Microbiology Date/Time Source Procedure Growth Status 11/18/18 11:30 Nasal Nares MRSA Culture - Final Staphylococcus Aureus - Mrsa Complete 11/18/18 11:30 Rectum - Final NO CARBAPENEM-RESISTANT ENTEROBACTERI... Complete 11/18/18 11:30 Rectum VRE Culture - Final Enterococcus Faecium - Vre Complete Objective GENERAL: The patient is a very unfortunate 58-year-old female, morbidly obese, sitting in a chair, not in apparent respiratory distress. HEENT: Atraumatic and normocephalic. Pupils are equal, round, and reactive to light and accommodation. Extraocular muscles intact. NECK: Could not assess JVP in the sitting position. The patient also is morbidly obese. No carotid bruit. Carotid upstrokes 2+ bilaterally. CARDIOVASCULAR: Normal S1 and S2. Regular rate and rhythm. No murmurs, gallops, or rubs. PMI is at fourth intercostal space in the midclavicular. LUNGS: Diminished breath sounds in both lungs. ABDOMEN: Obese. I do not appreciate hepatosplenomegaly. Positive bowel sounds. EXTREMITIES: There is 1+ bilateral lower extremity edema. Patrick Rinaldi MD Nov 20, 2018 19:29
--- NOTE | 2018-11-20 19:40 | NUR ---
NURSE NOTES: Patient in bed, awake, alert and verbally responsive. Able to make needs known. Respiration is even and unlabored at the moment. No complaint of pain or discomfort. Skin is warm and dry to touch. Abdomen is soft. IV site is noted. Bed in low and locked position. Provide safe environment. Patient complained of dinner tray was not given, previous shift noted that her tray was given and brought up from previous floor. Will follow up and provide food when available. call light is at bedside.
[2018-11-20 20:00] VITALS: BP 120/77
[2018-11-21] VITALS: BP 144/81
[2018-11-21 04:00] VITALS: BP 121/77
[2018-11-21] MEDS: sitaGLIPtin 50mg tab ORAL SCH (05:52)
[2018-11-21] MEDS: NovoLOG Insulin Flexpen SUBQ SCH ×4 (06:01→21:00)
--- NOTE | 2018-11-21 06:35 | NUR ---
NURSE NOTES: patient in bed, awake, alert. Patient IV is out, Will try to reinsert. Patient refused at the moment, she said to do it after breakfast. Noted, will endorse to next shift.
--- NOTE | 2018-11-21 07:30 | NUR ---
HAND-OFF: Report given to YOSSI Waterman.
--- NOTE | 2018-11-21 08:00 | NUR ---
NURSE NOTES: Patient alert and oriented, respirations unlabored,patient ate breakfast.Call light within reach.bed alarm on.
[2018-11-21 08:59] VITALS: BP 131/77
--- NOTE | 2018-11-21 09:00 | NUR ---
CASE MANAGEMENT:REVIEW 11/21/18 SI: CHF EXACERBATION. MODERATE PULMONARY HTN 98.7 75 16 121/77 98% ON RA IS: ALLOPURINOL PO BID ASA PO QD LOVENOX SQ QD IV LASIX PO QD COZAAR PO QD METFORMIN PO BID PROTONIX PO QD JANUVIA PO QAM NORCO PO Q6HRS PRN : MED/SURG STATUS 4 EAST DCP: FROM HOME
[2018-11-21] MEDS: Losartan 50mg tab ORAL SCH (09:04)
[2018-11-21] MEDS: metFORMIN 500mg tab ORAL SCH ×2 (09:04→17:34)
[2018-11-21] MEDS: Aspirin Baby 81mg ORAL SCH (09:04)
[2018-11-21] MEDS: Enoxaparin 40mg Inj SUBQ SCH (09:07)
[2018-11-21] MEDS: HYDROcodone/Acetamin 5/325 tab ORAL PRN ×2 (11:47→23:21)
[2018-11-21 12:00] VITALS: BP 116/64
[2018-11-21 16:00] VITALS: BP 148/70
--- NOTE | 2018-11-21 18:43 | NUR ---
NURSE NOTES: Patient sitting up ate dinner,respirations unlabored.Bed alarm on,call light within reach.
--- NOTE | 2018-11-21 19:20 | NUR ---
HAND-OFF: Report given to Jignesh SY.
--- NOTE | 2018-11-21 19:24 | NUR ---
NURSE NOTES: Message left for DR Rinaldi regarding to get clearance as ordered by DR Serrano.
--- NOTE | 2018-11-21 19:43 | NUR ---
NURSE NOTES: Patient in bed, awake, alert and verbally responsive. Able to make needs known. Respiration is even and unlabored. No complaint of pain or discomfort noted. Abdomen is soft, round. Skin is warm and dry to touch, intact. IV site is noted. Bed in low and locked position, kept clean and comfortable. provide safe environment. Call light is at bedside.
[2018-11-21 20:00] VITALS: BP 124/75
--- NOTE | 2018-11-21 21:35 | NUR ---
NURSE NOTES: Spoke with Dr. Rinaldi, patient is cleared for discharge.
--- NOTE | 2018-11-21 21:41 | NUR ---
NURSE NOTES: Spoke to patient regarding patient, at the moment does not have a home to go to. 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 patient noted saying as long as she can get the extension voucher from her social media marketing specialist she can go. The phone number for social media marketing specialist unable to contact at the moment. Will inform primary MD regarding situation of patient with no place to go. Charge nurse made aware.
--- NOTE | 2018-11-21 23:22 | NUR ---
NURSE NOTES: Patient complained of generalized pain, given PRN pain medication as ordered.
[2018-11-22] VITALS: BP 150/93
[2018-11-22] MEDS: Guaifenesin/DM 10ml syrup ORAL PRN ×2 (00:26→15:27)
--- NOTE | 2018-11-22 03:26 | NUR ---
NURSE NOTES: Dumont medication was opened but not due yet, wasted medication, witnessed by Rodrigue SY.
[2018-11-22 04:00] VITALS: BP 155/100
[2018-11-22] MEDS: sitaGLIPtin 50mg tab ORAL SCH (05:45)
[2018-11-22] MEDS: NovoLOG Insulin Flexpen SUBQ SCH ×4 (05:53→21:34)
--- NOTE | 2018-11-22 07:06 | NUR ---
HAND-OFF: Report given to YOSIS Barney.
--- NOTE | 2018-11-22 07:40 | NUR ---
NURSE NOTES: Patient in bed, awake, alert and verbally responsive. Able to make needs known. no sign of respiratory distress,denies pain or discomfort . Abdomen is soft, round. Skin is warm and dry to touch, intact. HL patent, on fall and aspiration precaution. Bed in low and locked position, kept clean and comfortable. provide safe environment. Call light is at bedside. jeanette hawthorne
[2018-11-22 08:00] VITALS: BP 151/69
[2018-11-22] MEDS: Aspirin Baby 81mg ORAL SCH (08:41)
[2018-11-22] MEDS: Losartan 50mg tab ORAL SCH (08:41)
[2018-11-22] MEDS: metFORMIN 500mg tab ORAL SCH ×2 (08:41→17:18)
[2018-11-22] MEDS: Enoxaparin 40mg Inj SUBQ SCH (08:47)
--- NOTE | 2018-11-22 10:26 | General Progress Note ---
Assessment/Plan Status: stable Assessment/Plan: S: My sob is better O: seems comfortable, decline Chest pain , however reported that is very fatigues and weak PHYSICAL EXAMINATION:HEAD AND NECK: Atraumatic and normocephalic. CHEST: Clear to auscultation.HEART: S1, S2. Regular rate and rhythm. ABDOMEN: Soft. No organomegaly.MUSCULOSKELETAL: Positive for 2+ pitting edema in the lower extremity. NEUROLOGIC: The patient is awake, alert, oriented x3. LABORATORY DATA: Labs dated November 2st reviewed Meds: Reviewed and reconciled in the chart ASSESSMENT AND PLAN: 1. CHF exacerbation. 2. Diabetes type 2. 3. Positive for opiate use as an outpatient. 4. Cardiomyopathy on pacemaker. Plan: will optimise meds current mgt will followup with cardio recommendations Subjective Allergies: Coded Allergies: Basil (Verified Allergy, Unknown, 11/16/18) Objective Last 24 Hour Vital Signs Date Time Temp Pulse Resp B/P (MAP) Pulse Ox O2 Delivery O2 Flow Rate FiO2 11/22/18 09:00 Room Air 11/22/18 08:41 151/69 11/22/18 08:00 98.0 79 19 151/69 (96) 91 11/22/18 04:00 98.5 83 19 155/100 (118) 95 11/22/18 00:00 98.2 80 19 150/93 (112) 96 11/21/18 21:00 Room Air 11/21/18 20:00 98.1 79 20 124/75 (91) 96 11/21/18 16:00 97.4 87 18 148/70 (96) 98 11/21/18 12:00 98.3 82 18 116/64 (81) 94 Intake and Output 11/21/18 11/22/18 18:59 06:59 Intake Total 960 ml Output Total 600 ml 1200 ml Balance 360 ml -1200 ml Intake Oral 960 ml Output Urine Total 600 ml 1200 ml # Voids 4 # Bowel Movements 1 Height (Feet): 5 Height (Inches): 9.00 Weight (Pounds): 404 Lauren Serrano MD Nov 22, 2018 10:26
[2018-11-22 11:25] VITALS: BP 159/70
--- NOTE | 2018-11-22 15:37 | NUR ---
CASE MANAGEMENT:REVIEW 11/22/18 SI: CHF EXACERBATION. MODERATE PULMONARY HTN 97.7 79 18 159/70 93% ON RA IS: ALLOPURINOL PO BID ASA PO QD LOVENOX SQ QD IV LASIX PO QD COZAAR PO QD METFORMIN PO BID PROTONIX PO QD JANUVIA PO QAM NORCO PO Q6HRS PRN : MED/SURG STATUS 4 EAST DCP: OF TODAY PATIENT IS STATING SHE IS HOMELESS PLAN: SOCIAL SERVICE CONSULT
--- NOTE | 2018-11-22 15:46 | NUR ---
HOMELESS COORDINATOR HC spoke with patient and patient is alert and oriented. Patient does have a contact number [phone]. Patient states she cannot walk and needs a wheelchair not at bedside. Patient states she is not fully homeless and has been living with a friend for a little over week now. Patient states the friend went out of town and won't be returning for another week and is unable to get into the home. Patient states prior to living with friend she was staying in motels for a few months. Patient states the friends phone is disconnected and is unable to reach her at this time. Patient refuses skilled nursing resources. Patient states she is receiving $900 in SSI, and currently has no money left for placement options. Patient states she has no mental health issues or substances abuse. Patient states she has a section 8 voucher and has a place to move in, she just need a copy from her high school social studies tutor. Bernice . HC was unable to reach Bernice, message was left on voicemail. Patient continues to require medical intervention. Will continue to monitor and assist as needed.
--- NOTE | 2018-11-22 15:51 | NUR ---
Social Service Note SW left a message for [employer] program Cassandra Cardenas [phone] regarding patient's voucher. Voice message indicated Cassandra can take up to 2 days to return call. No return call at this time. Patient discharged on 11/15 with niece refusing to indicate discharge location. Patient ambulated independently. Pt with ER visits 11/16 and 11/17 at which time she ambulated independently. Now with impending dc patient states she is unable to walk. Patient states she has a place to go once she is able to confirm section 8 voucher. Unable to determine when voucher will be verified. Patient may require residential or [facility] placement. Patient niece out of town at this time. Patient to be evaluated by PT. JOSÉ MIGUEL discussed with BONILLA. BONILLA to explore possible SNF placement. Hotel voucher are not provided by hospital. Will continue to monitor.
[2018-11-22 15:55] VITALS: BP 149/100
--- NOTE | 2018-11-22 19:35 | NUR ---
HAND-OFF: Report given to Miss Nobles, RN accordingly patient resting comfortably in bed, denies any pain or discomfort jeanette hawthorne.
[2018-11-22 20:00] VITALS: BP 142/74
--- NOTE | 2018-11-22 23:07 | Cardiology Progress Note ---
Assessment/Plan Assessment/Plan 1. Dyspnea and lower extremity edema, most likely due to obesity hypoventilation syndrome, 2D echocardiography from October this year from this facility was reviewed and shows hyperdynamic LV systolic function with LVEF approximately 75% and presence of a normal intracardiac filling pressures. 2. Widened mediastinum, CT of the chest for aortic aneurysm. 3. Moderate pulmonary hypertension, most likely due to obesity hypoventilation syndrome, consider pulmonary consult for sleep study/evaluation for CPAP mask. 4. History of diabetes mellitus. 5. History of hypertension, increase losartan to 50mg daily. 6. Status post dual-chamber pacemaker implantation at [facility] due to sinus pauses associated with BRAYDON, currently the rhythm is the patient's intrinsic activity. Subjective Subjective No cardiac events noted. Objective Last 24 Hour Vital Signs Date Time Temp Pulse Resp B/P (MAP) Pulse Ox O2 Delivery O2 Flow Rate FiO2 11/22/18 20:00 98.1 85 20 142/74 (96) 95 11/22/18 15:55 98.8 81 18 149/100 (116) 94 11/22/18 11:25 97.7 79 18 159/70 (99) 93 11/22/18 09:00 Room Air 11/22/18 08:41 151/69 11/22/18 08:00 98.0 79 19 151/69 (96) 91 11/22/18 04:00 98.5 83 19 155/100 (118) 95 11/22/18 00:00 98.2 80 19 150/93 (112) 96 Intake and Output 11/21/18 11/22/18 19:00 07:00 Intake Total 960 ml Output Total 600 ml 1200 ml Balance 360 ml -1200 ml Intake Oral 960 ml Output Urine Total 600 ml 1200 ml # Voids 4 # Bowel Movements 1 Objective HEENT: Atraumatic and normocephalic. Pupils are equal, round, and reactive to light and accommodation. Extraocular muscles intact, morbidly obese. NECK: Could not assess JVP in the sitting position, no carotid bruit. Carotid upstrokes 2+ bilaterally. CARDIOVASCULAR: Normal S1 and S2. Regular rate and rhythm. No murmurs, gallops, or rubs. PMI is at fourth intercostal space in the midclavicular. LUNGS: Diminished breath sounds in both lungs. ABDOMEN: Obese. I do not appreciate hepatosplenomegaly. Positive bowel sounds. EXTREMITIES: There is 1+ bilateral lower extremity edema. Patrick Rinaldi MD Nov 22, 2018 23:07
[2018-11-23] VITALS: BP 138/64
--- NOTE | 2018-11-23 00:23 | NUR ---
NURSE NOTES: RECEIVED PT FROM YOSSI STOCKTON. PT IS AWAKE, AAOX4, SITTING UP ON THE EDGE OF BED. DENIES PAIN AND SOB AT THE MOMENT. COMMODE AT BEDSIDE. IV ON RIGHT HAND 22G IS INTACT AND PATENT. BED IS LOCKED AT THE LOWEST POSITION, CALL LIGHT WITHIN REACH. WILL CONTINUE TO MONITOR.
[2018-11-23] MEDS ORDERED: Isovue-300 100ml vial INJ PRN (01:00)
[2018-11-23] MEDS: HYDROcodone/Acetamin 5/325 tab ORAL PRN ×2 (01:05→16:22)
[2018-11-23 04:00] VITALS: BP 150/73
--- NOTE | 2018-11-23 06:00 | NUR ---
NURSE NOTES: PT SIGNED CONSENT FOR CT CHEST WITH CONTRAST.
[2018-11-23] MEDS: NovoLOG Insulin Flexpen SUBQ SCH ×4 (06:30→21:00)
[2018-11-23] MEDS: sitaGLIPtin 50mg tab ORAL SCH (06:36)
--- NOTE | 2018-11-23 07:32 | NUR ---
HAND-OFF: WRITTEN REPORT GIVEN CHARGE NURSE YOSSI WITT.
[2018-11-23 08:00] VITALS: BP 146/62
--- NOTE | 2018-11-23 09:01 | NUR ---
11/[address]pt is 404 lb, exceeds table limit. RN Ani ahuja, w/c . tjb 9:01
[2018-11-23] MEDS: Losartan 50mg tab ORAL SCH (09:56)
[2018-11-23] MEDS: Aspirin Baby 81mg ORAL SCH (09:56)
[2018-11-23] MEDS: Enoxaparin 40mg Inj SUBQ SCH (10:04)
--- NOTE | 2018-11-23 11:01 | General Progress Note ---
Assessment/Plan Status: stable Assessment/Plan: S: My sob is better O: seems comfortable, decline Chest pain , however reported that is very fatigues and weak PHYSICAL EXAMINATION:HEAD AND NECK: Atraumatic and normocephalic. CHEST: Clear to auscultation.HEART: S1, S2. Regular rate and rhythm. ABDOMEN: Soft. No organomegaly.MUSCULOSKELETAL: Positive for 2+ pitting edema in the lower extremity. NEUROLOGIC: The patient is awake, alert, oriented x3. LABORATORY DATA: Labs dated November 2st reviewed Meds: Reviewed and reconciled in the chart ASSESSMENT AND PLAN: 1. CHF exacerbation. 2. Diabetes type 2. 3. Positive for opiate use as an outpatient. 4. Cardiomyopathy on pacemaker. Plan: will optimise meds current mgt will followup with cardio recommendations Subjective Allergies: Coded Allergies: Basil (Verified Allergy, Unknown, 11/16/18) Objective Last 24 Hour Vital Signs Date Time Temp Pulse Resp B/P (MAP) Pulse Ox O2 Delivery O2 Flow Rate FiO2 11/23/18 09:56 150/73 11/23/18 09:00 Room Air 11/23/18 08:00 98.2 75 18 146/62 (90) 97 11/23/18 04:00 97.5 69 16 150/73 (98) 96 11/23/18 00:00 98.3 86 18 138/64 (88) 98 11/22/18 21:00 Room Air 11/22/18 20:00 98.1 85 20 142/74 (96) 95 11/22/18 15:55 98.8 81 18 149/100 (116) 94 11/22/18 11:25 97.7 79 18 159/70 (99) 93 Intake and Output 11/22/18 11/23/18 18:59 06:59 Intake Total 500 ml 254 ml Output Total 700 ml Balance -200 ml 254 ml Intake Oral 500 ml 254 ml Output Urine Total 700 ml # Voids 4 2 # Bowel Movements 2 Height (Feet): 5 Height (Inches): 9.00 Weight (Pounds): 404 Lauren Serrano MD Nov 23, 2018 11:01
--- NOTE | 2018-11-23 11:51 | NUR ---
CASE MANAGEMENT:REVIEW 11/23/18 SI: CHF EXACERBATION. MODERATE PULMONARY HTN 98.2 75 18 146/62 97% ON RA IS: ALLOPURINOL PO BID ASA PO QD LOVENOX SQ QD IV LASIX PO QD COZAAR PO QD METFORMIN PO BID PROTONIX PO QD JANUVIA PO QAM NORCO PO Q6HRS PRN : MED/SURG STATUS 4 EAST DCP: HOMELESS PLAN: SOCIAL SERVICE CONSULT
[2018-11-23 12:00] VITALS: BP 151/74
--- NOTE | 2018-11-23 12:02 | NUR ---
RD ASSESSMENT & RECOMMENDATIONS SEE CARE ACTIVITY FOR COMPLETE ASSESSMENT DAILY ESTIMATED NEEDS: Needs based on Morbidy obesity, CHF/ 95kg abw 18-20 kcals/kg 1755-0028 total kcals 1-1.5 g protein/kg 95-143 g total protein Fluid per MD, on lasix NUTRITION DIAGNOSIS: * Decreased sodium and fat/cholesterol intake needs R/T cardiac dx, fluid retention, morbid obesity, as evidenced by CHF dx h/o pacemaker, adm w. edema, on lasix, BMI >50. PO DIET RECOMMENDATIONS: CARDIAC + CCHO MED ADDITIONAL RECOMMENDATIONS: * Daily standing wt * Monitor lytes daily while on lasix, replete as needed * B-complex qdaily
--- NOTE | 2018-11-23 15:36 | NUR ---
NURSE NOTES: RN left voicemail for Dr. Rinaldi regarding inability to perform CT Chest due to patient's exceeding weight.
[2018-11-23 16:00] VITALS: BP 164/101
--- NOTE | 2018-11-23 19:18 | NUR ---
HAND-OFF: Report given to Mallorie RN.
[2018-11-23 20:00] VITALS: BP 117/69
--- NOTE | 2018-11-23 20:36 | NUR ---
NURSE NOTES: RECEIVED PT FROM WICHO Perez RN. PT IS AWAKE, AAOX4, SITTING UP IN BED, ON ROOM AIR, NO ACUTE DISTRESS NOTED. PT DENIES PAIN AT THE MOMENT. COMMODE NOTED AT BEDSIDE. IV ON RIGHT HAND 22G IS INTACT AND PATENT. BED IS LOCKED AT THE LOWEST POSITION, BED ALARMS ACTIVE, SIDE RAILS UP X2, AND CALL LIGHT IS WITHIN REACH. WILL CONTINUE TO MONITOR.
[2018-11-24] VITALS: BP 120/57
--- NOTE | 2018-11-24 01:02 | Cardiology Progress Note ---
Assessment/Plan Assessment/Plan LATE ENTRY NOTE Date of Encounter: 11/23/18 Time of Encounter: 21: 07 1. Dyspnea and lower extremity edema, most likely due to obesity hypoventilation syndrome, 2D echocardiography from October this year from this facility was reviewed and shows hyperdynamic LV systolic function with LVEF approximately 75% and presence of a normal intracardiac filling pressures. 2. Widened mediastinum, CT of the chest for aortic aneurysm was cancelled due to the patient's body habitus. 3. Moderate pulmonary hypertension, most likely due to obesity hypoventilation syndrome, consider pulmonary consult for sleep study/evaluation for CPAP mask. 4. History of diabetes mellitus. 5. History of hypertension, continue losartan. 6. Status post dual-chamber pacemaker implantation at [facility] due to sinus pauses associated with BRAYDON, currently the rhythm is the patient's intrinsic activity. Subjective Subjective No cardiac events noted. Objective Last 24 Hour Vital Signs Date Time Temp Pulse Resp B/P (MAP) Pulse Ox O2 Delivery O2 Flow Rate FiO2 11/24/18 00:00 96.9 83 18 120/57 (78) 98 11/23/18 21:00 Room Air 11/23/18 20:00 98.2 83 17 117/69 (85) 94 11/23/18 16:00 98.0 86 18 164/101 (122) 96 11/23/18 12:00 97.9 80 18 151/74 (99) 93 11/23/18 09:56 150/73 11/23/18 09:00 Room Air 11/23/18 08:00 98.2 75 18 146/62 (90) 97 11/23/18 04:00 97.5 69 16 150/73 (98) 96 Intake and Output 11/23/18 11/24/18 19:00 07:00 Intake Total 750 ml Balance 750 ml Intake Oral 750 ml # Voids 7 # Bowel Movements 1 1 Objective HEENT: Atraumatic and normocephalic. Pupils are equal, round, and reactive to light and accommodation. Extraocular muscles intact, morbidly obese. NECK: Could not assess JVP in the sitting position, no carotid bruit. Carotid upstrokes 2+ bilaterally. CARDIOVASCULAR: Normal S1 and S2. Regular rate and rhythm. No murmurs, gallops, or rubs. PMI is at fourth intercostal space in the midclavicular. LUNGS: Diminished breath sounds in both lungs. ABDOMEN: Obese. I do not appreciate hepatosplenomegaly. Positive bowel sounds. EXTREMITIES: There is 1+ bilateral lower extremity edema. Patrick Rinaldi MD Nov 24, 2018 01:02
[2018-11-24] MEDS: HYDROcodone/Acetamin 5/325 tab ORAL PRN ×2 (01:58→09:53)
[2018-11-24] MEDS: Guaifenesin/DM 10ml syrup ORAL PRN ×2 (02:16→20:47)
[2018-11-24 04:00] VITALS: BP 136/62
[2018-11-24] MEDS: sitaGLIPtin 50mg tab ORAL SCH (05:39)
[2018-11-24] MEDS: NovoLOG Insulin Flexpen SUBQ SCH ×4 (05:43→20:44)
--- NOTE | 2018-11-24 07:25 | NUR ---
HAND-OFF: Report given to YOSSI SANDS.
--- NOTE | 2018-11-24 07:49 | NUR ---
NURSE NOTES: Patient received in stable condition, sitting up on edge of bed. No signs of respiratory distress observed. Denies pain at this time. Bed locked in lowest position, commode by bedside. Call light placed within reach, will continue to monitor.
[2018-11-24 08:00] VITALS: BP 130/56
[2018-11-24] MEDS: Losartan 50mg tab ORAL SCH (08:47)
[2018-11-24] MEDS: Aspirin Baby 81mg ORAL SCH (08:47)
[2018-11-24] MEDS: Enoxaparin 40mg Inj SUBQ SCH (08:52)
[2018-11-24 11:46] VITALS: BP 108/55
[2018-11-24 16:00] VITALS: BP 123/78
--- NOTE | 2018-11-24 19:18 | NUR ---
HAND-OFF: Report given to Mallorie RN.
[2018-11-24 20:00] VITALS: BP 148/77
--- NOTE | 2018-11-24 20:00 | NUR ---
NURSE NOTES: RECEIVED PT FROM YOSSI SANDS. PT IS AWAKE, AAOX4, ON NC 2L PRN WITH O2 AT 97%. IV ON RIGHT HAND 22G IS INTACT AND PATENT. COMPLETE BED LINEN CHANGE. PT HAD A LARGE BM, FORMED AND SOFT. BED IS LOCKED AT THE LOWEST POSITION, BED ALARM ACTIVE, SIDE RAILS UP X2, AND CALL LIGHT IS WITHIN REACH. WILL CONTINUE TO MONITOR.
[2018-11-25] VITALS: BP 133/62
--- NOTE | 2018-11-25 02:57 | NUR ---
NURSE NOTES: PT HAD ANOTHER LARGE BM. FORMED AND SOFT. REINFORCED TEACHING ON FLUID RESTRICTION. PT VERBALIZED UNDERSTANDING.
[2018-11-25 04:00] VITALS: BP 130/78
[2018-11-25] MEDS: HYDROcodone/Acetamin 5/325 tab ORAL PRN ×3 (05:11→19:36)
[2018-11-25] MEDS: sitaGLIPtin 50mg tab ORAL SCH (06:32)
[2018-11-25] MEDS: NovoLOG Insulin Flexpen SUBQ SCH ×4 (06:39→19:41)
--- NOTE | 2018-11-25 07:10 | NUR ---
HAND-OFF: Report given to YOSSI GARLAND.
[2018-11-25 08:00] VITALS: BP 126/89
--- NOTE | 2018-11-25 08:15 | NUR ---
NURSE NOTES: PT AXOX4, SITTING ON BED EATING BREAKFAST. NO SOB OR RESPIRATORY DISTRESS NOTED WHILE ON ROOM AIR. CALL LIGHT WITHIN REACH. WILL CONTINUE TO MONITOR.
[2018-11-25] MEDS: Losartan 50mg tab ORAL SCH (09:00)
[2018-11-25] MEDS: Aspirin Baby 81mg ORAL SCH (09:01)
[2018-11-25] MEDS: Enoxaparin 40mg Inj SUBQ SCH (09:10)
--- NOTE | 2018-11-25 10:25 | General Progress Note ---
Assessment/Plan Status: stable Assessment/Plan: S: My sob is better O: seems comfortable, decline Chest pain , however reported that is very fatigues and weak PHYSICAL EXAMINATION:HEAD AND NECK: Atraumatic and normocephalic. CHEST: Clear to auscultation.HEART: S1, S2. Regular rate and rhythm. ABDOMEN: Soft. No organomegaly.MUSCULOSKELETAL: Positive for 2+ pitting edema in the lower extremity. NEUROLOGIC: The patient is awake, alert, oriented x3. LABORATORY DATA: Labs dated November 2st reviewed Meds: Reviewed and reconciled in the chart ASSESSMENT AND PLAN: 1. CHF exacerbation. 2. Diabetes type 2. 3. Positive for opiate use as an outpatient. 4. Cardiomyopathy on pacemaker. Plan: will optimise meds current mgt will followup with cardio recommendations Subjective Allergies: Coded Allergies: Basil (Verified Allergy, Unknown, 11/16/18) Objective Last 24 Hour Vital Signs Date Time Temp Pulse Resp B/P (MAP) Pulse Ox O2 Delivery O2 Flow Rate FiO2 11/25/18 09:00 Room Air 11/25/18 09:00 126/89 11/25/18 08:00 97.7 88 19 126/89 (101) 92 11/25/18 04:00 97.7 74 24 130/78 (95) 96 11/25/18 00:00 97.7 90 20 133/62 (85) 96 11/24/18 21:00 Room Air 11/24/18 20:00 97.9 74 16 148/77 (100) 96 11/24/18 16:00 98.6 81 20 123/78 (93) 95 11/24/18 11:46 98.0 66 20 108/55 (72) 92 Intake and Output 11/24/18 11/25/18 19:00 07:00 Intake Total 600 ml 600 ml Output Total 2300 ml 400 ml Balance -1700 ml 200 ml Intake Oral 600 ml 600 ml Output Urine Total 2300 ml 400 ml # Voids 5 3 # Bowel Movements 1 4 Height (Feet): 5 Height (Inches): 9.00 Weight (Pounds): 404 Lauren Serrano MD Nov 25, 2018 10:25
[2018-11-25] MEDS: Guaifenesin/DM 10ml syrup ORAL PRN (11:31)
[2018-11-25 11:58] VITALS: BP 139/75
[2018-11-25 16:00] VITALS: BP 120/66
--- NOTE | 2018-11-25 19:06 | NUR ---
HAND-OFF: Report given to Deena VEGA RN.
[2018-11-25 20:00] VITALS: BP 125/66
[2018-11-25] MEDS ORDERED: Zolpidem 5mg tab ORAL PRN (21:00)
--- NOTE | 2018-11-25 22:00 | NUR ---
NURSE NOTES: Pt is in bed, awake and talkative. No acute distress noted. NO SOB. Pt is in room air. Pt complains of generalized pain. Pain medication will be given as ordered. Dr. Serrano is called regarding patient's request for sleeping medication Doctor ordered Ambien 5mg po for insomnia QHS. Fall precaution in place. Pt instructed to call for assistance before getting out of bed. Bed alarm on. Call light within reach. Bed locked low in position, side rails up. Pt will be monitored.
--- NOTE | 2018-11-25 22:27 | NUR ---
NURSE NOTES: Pt is in bed, awake
[2018-11-26] MEDS: HYDROcodone/Acetamin 5/325 tab ORAL PRN ×2 (02:05→16:31)
--- NOTE | 2018-11-26 04:00 | NUR ---
NURSE NOTES: Pt refused midnight vitals sign check and 0400Am vitals sign check. Pt is in bed, asleep. NO SOB noted.
[2018-11-26] MEDS: sitaGLIPtin 50mg tab ORAL SCH (06:19)
[2018-11-26] MEDS: NovoLOG Insulin Flexpen SUBQ SCH ×4 (06:22→20:38)
--- NOTE | 2018-11-26 07:10 | NUR ---
HAND-OFF: Report given to YOSSI Perez.Informed that patient is fall risk.
--- NOTE | 2018-11-26 07:30 | NUR ---
NURSE NOTES: Received pt from EDA RN. Pt is alert and orient x4. pt is in RA, No SOB or acute respiratory distress noted. pt has intact iv access RH 22G SL. Pt is eating breakfast independently. all needs attended, bed is locked and is in the lowest position. call light with easy reach. will continue to monitor.
[2018-11-26 08:00] VITALS: BP 166/89
[2018-11-26] MEDS: Losartan 50mg tab ORAL SCH (09:04)
[2018-11-26] MEDS: Aspirin Baby 81mg ORAL SCH (09:04)
[2018-11-26] MEDS: Enoxaparin 40mg Inj SUBQ SCH (09:11)
[2018-11-26 10:00] VITALS: BP 160/87
[2018-11-26 12:00] VITALS: BP 158/91
--- NOTE | 2018-11-26 13:08 | NUR ---
P.T NOTE: P.T EVALUATION ATTEMPTED AFTER SPEAKING WITH WAREHOUSE INSULATION WORKER RE: D/C PLANNING. PATIENT HOWEVER ADAMANTLY REFUSED TO PARTICIPATE WITH P.T EVALUATION. PATIENT IRRITABLY STATED " I DON'T WANT ANY PHYSICAL THERAPY AND I AM GOING HOME TOMORROW ANYWAY ". INFUSION NURSE NOTIFIED /AWARE.
--- NOTE | 2018-11-26 13:25 | NUR ---
*-* INSURANCE *-* ALL CLINICALS AND REVIEWS HAVE BEEN FAXED TO: [facility] PLEASE FAX THE REVIEW/CLINICAL P- [phone] F- [phone]....REVIEW/CLINICAL & [facility]: MICHAEL Urbina P- [phone] F- [phone],,....REVIEW/CLINICAL
[2018-11-26 16:00] VITALS: BP 131/73
--- NOTE | 2018-11-26 17:03 | NUR ---
CASE MANAGEMENT:REVIEW 11/26/18 SI: CHF EXACERBATION. MODERATE PULMONARY HTN 98.0 85 20 166/87 95% ON RA IS: ALLOPURINOL PO BID ASA PO QD LOVENOX SQ QD IV LASIX PO QD COZAAR PO QD METFORMIN PO BID PROTONIX PO QD JANUVIA PO QAM NORCO PO Q6HRS PRN : MED/SURG STATUS 4 EAST DCP: HOMELESS PLAN: SOCIAL SERVICE CONSULT REFUSING TO WORK WITH PHYSICAL THERAPY
--- NOTE | 2018-11-26 19:18 | NUR ---
HAND-OFF: Report given to JAXSON BAEZ RN. Addendum: 11/26/18 at 1920 by Chris Little RN ERROR HAND-OFF: Report given to LIA SY.
--- NOTE | 2018-11-26 19:35 | NUR ---
NURSE NOTES: Received report from YOSSI Perez. Patient A&Ox4. On room air, no signs of distress or labored breathing. IV intact, patent, and saline locked. Patient sitting on bed on the phone. Bed in lowest position with call light in reach. Will continue with plan of care.
[2018-11-26 20:00] VITALS: BP 125/97
[2018-11-27] VITALS: BP 144/81
[2018-11-27] MEDS: HYDROcodone/Acetamin 5/325 tab ORAL PRN (02:50)
[2018-11-27 04:00] VITALS: BP 127/60
[2018-11-27] MEDS: NovoLOG Insulin Flexpen SUBQ SCH (06:30)
[2018-11-27] MEDS: sitaGLIPtin 50mg tab ORAL SCH (06:33)
--- NOTE | 2018-11-27 07:25 | NUR ---
HAND-OFF: Report given to Marcela Tompkins RN.
--- NOTE | 2018-11-27 07:30 | NUR ---
NURSE NOTES: Received patient in bed, awake, not in acute respiratory distress. Breathing is even and unlabored. Denies any pain or discomfort. Bed is in lowest position and locked. Call light within reach. Will continue plan of care.
[2018-11-27 08:00] VITALS: BP 133/68
[2018-11-27 09:21] VITALS: BP 133/68
[2018-11-27] MEDS: Losartan 50mg tab ORAL SCH (09:21)
[2018-11-27] MEDS: Aspirin Baby 81mg ORAL SCH (09:21)
[2018-11-27] MEDS: Enoxaparin 40mg Inj SUBQ SCH (09:22)
--- NOTE | 2018-11-27 11:15 | NUR ---
Social Service Note JOSÉM IGUEL met with patient 11/26/18 and again today to discuss impending dc planning. Yesterday patient states she was residing with friends prior to admission. Patient states she has located a [address] 8 apartment (showed JOSÉ MIGUEL photos) and all she requires is her voucher. SW explained that SW has been unable to reach her worker. Patient stated she is unaware if she is able to return to a friends home. Patient states her ambulation is limited due to knee pain. Patient states she is able to stand but not walk long distances. Patient has a truck and is able to drive. Patient states she uses a wheelchair for distance. SW discussed Recuperative Care placement and senior care placement. Patient states she has utilized shelters in the past and that is not a situation she is able to return too because of her health. SW described the Rec[facility] setting and patient refused. Patient stated she would continue to contact friends. SW met with patient today. Patient stated she didn't have a permeant place in place to stay at this time but she had to get to the section 8 office to receive a copy of her voucher to obtain her apartment. Patient signed out AMA. Patient indicated that she would return to hospital as needed. Patient stated she contacted her friend who will be downstairs waiting for her. SW informed primary nurse. Patient stated she didn't require resources.
--- NOTE | 2018-11-27 11:45 | NUR ---
NURSE NOTES: Patient asked to be discharged. Rn explained about proper discharge but patient said " I need to leave now, if not, I am going to lose my apartment." Patient is alert and oriented x4.Rn explained about AMA and patient fully understood but wanted to leave facility AMA. Patient signed AMA and belonging list. All belongings accounted for and skin intact, ID and IV were removed. No s/s of infection on IV removal site. Patient has no s/s of distress. Patient said " I am gonna come back to the hospital, do not worry." Prior to discharge,patient taled to rn social work. Charge nurse, housekeeper nanny and Dr. Serrano are aware of AMA.
--- NOTE | 2018-11-27 15:18 | NUR ---
*-* INSURANCE *-* ALL CLINICALS AND REVIEWS HAVE BEEN FAXED TO: [facility] PLEASE FAX THE REVIEW/CLINICAL P- [phone] F- [phone]....REVIEW/CLINICAL & [facility]: MICHAEL Urbina P- [phone] F- [phone],,....REVIEW/CLINICAL
--- NOTE | 2018-11-28 08:43 | Discharge Summary ---
Discharge Summary Discharge Summary _ DATE OF ADMISSION: 11/18/2018 DATE OF DISCHARGE 11/27/2018 Patient left AGAINST MEDICAL ADVICE REASON FOR ADMISSION: 58 years old female with past medical history of congestive heart failure, hypertension, pacemaker, hyperlipidemia, diabetes mellitus, leukemia in remission, presented with persistent lower extremity swelling. Patient had recent hospitalization due to congestive heart failure. Patient reported not follow-up with her discharge medications including Lasix. She denied fever. She reported increased leg swelling with associated shortness of breath. She reported increased generalized weakness. Upon evaluation blood pressure was 93/78. Pulse oximetry was 95% on room air. Laboratory work-up revealed no leukocytosis, stable hemoglobin and hematocrit. Stable electrolytes and renal parameters. Blood glucose 121. Troponin was negative. pro BNP 22. EKG revealed normal sinus rhythm, no acute ischemic changes. Chest x-ray demonstrated no interval change compared to the prior chest x-ray. Cardiomegaly with pulmonary vascular congestion noted. Patient subsequently admitted to telemetry floor. CONSULTANTS: automatic engraver Dr. Rinaldi [facility]: Patient admitted to telemetry floor. Echocardiogram done on previous admission, revealed preserved ejection fraction with mild left ventricular hypertrophy. Left ventricular ejection fraction 65 to 70% with normal right atrial and ventricular cavity size and presence of pacemaker. Right ventricular systolic pressure of 44 consistent with moderate pulmonary hypertension and grade 1 diastolic dysfunction. Per automatic engraver, dyspnea and lower extremity edema were most likely due to obesity hypoventilation syndrome with some burdening due to associated moderate pulmonary hypertension. Lasix resumed. Volumes were closely monitored. Per cardiology, normal pro BNP essentially rules out congestive heart failure exacerbation. Blood pressure was managed with an angiotensin receptor joni with holding parameters. Dose of losartan was decreased due to initial low blood pressure. Blood pressure was closely monitored. Pacemaker was implanted at [facility] due to sinus pauses during the sleep, most likely due to obstructive sleep apnea. Patient currently had her own intrinsic rate. No further evaluation was required at this time. Ship Loader recommended pulmonary consult and sleep study, which can be done as outpatient. Hemoglobin A1c 7.5. Blood sugar was managed with Januvia. Sliding scale of insulin implemented as needed. Statin continued. Pain management was addressed as needed. GI prophylaxis provided. Patient was homeless. cable worker helper met with patient on 2 different occasions. Patient stated that she was residing with friends prior to admission. Patient reported that she had [place] a [place] apartment , and only required assistance for voucher. cable worker helper discussed with the patient recuperated care and care home placement . Patient declined both options. Patient preferred to contact her friend . Patient decided to sign AGAINST MEDICAL ADVICE. The risks and consequences of signing AGAINST MEDICAL ADVICE were discussed with patient in detail. Patient verbalized understanding, nevertheless signed AMA form and left. Patient indicates that she will return to hospital as needed. Patient contacted friend, who was waiting for her downstairs. FINAL DIAGNOSES: Obesity hypoventilation syndrome Moderate pulmonary hypertension Probably obstructive sleep apnea Congestive heart failure Diabetes mellitus Hypertension Status post dual-chamber pacemaker implantation . I have been assigned to dictate discharge summary for this account. I was not involved in the patient's management. Homa Howe NP Nov 28, 2018 08:43
== END 2018-11-27 11:47 | disposition left against medical advice (07) | DRG 194 ==
LOC: EMR 10:23 → EDBEDREQ 12:33 → 2E 13:21 → OBSVTOIN 13:21 → 2E 17:59 → 4E 11-20 18:46
DX: I11.0 Hypertensive heart disease with heart failure (principal); I50.33 Acute on chronic diastolic (congestive) heart failure; I27.20 Pulmonary hypertension, unspecified; I10 Essential (primary) hypertension; I25.10 Atherosclerotic heart disease of native coronary artery without angina pectoris; Z79.82 Long term (current) use of aspirin; Z79.4 Long term (current) use of insulin; E11.9 Type 2 diabetes mellitus without complications; I42.9 Cardiomyopathy, unspecified; Z95.0 Presence of cardiac pacemaker; E78.5 Hyperlipidemia, unspecified; F09 Unspecified mental disorder due to known physiological condition; E66.2 Morbid (severe) obesity with alveolar hypoventilation; Z68.43 Body mass index [BMI] 50.0-59.9, adult
CPT/HCPCS: 36415; 71045; 80053; 80061; 80307; 81003; 82550; 82553; 82962; 83036; 83690; 83880; 84443; 84484; 85025; 87081; 93005; 96374; 99285; G0378; J1815

== ENCOUNTER 2018-11-28 20:44 | Inpatient (IN) | payer MEDICAID ==
[~2018-11-28] VITALS: Ht 172.7 cm; Wt 180.5 kg
[2018-11-28 20:58] VITALS: BP 162/102
--- NOTE | 2018-11-28 20:58 | NUR ---
ED Nurse Note: Walk-in patient presents with complaints of SOB while lying down. Patient was instructed by her primary care to come in to ER previously. Patient was admitted and had to leave AMA due to rent circumstances. PAtient is morbidly obese and has difficulty ambulating with ease. Patient has complaints of back pain as well.
--- NOTE | 2018-11-28 21:19 | NUR ---
ED Nurse Note: Patient helped into bed and given a urinal per request to provide a urine sample. Patient provided with cranberry juice and ice per request.
[2018-11-28 22:12] LABS: BASOPHILS % (AUTO) 3.9 % (0.0-2.0); EOSINOPHILS % (AUTO) 1.4 % (0.0-3.0); HEMATOCRIT 37.8 % (37.0-47.0); HEMOGLOBIN 12.6 G/DL (12.0-16.0); LYMPHOCYTES % (AUTO) 28.9 % (20.0-45.0); MEAN CORPUSCULAR VOLUME 85 FL (80-99); MONOCYTES % (AUTO) 5.7 % (1.0-10.0); NEUTROPHILS % (AUTO) 60.1 % (45.0-75.0); PLATELET COUNT 336 K/UL (150-450); RED BLOOD COUNT 4.42 M/UL (4.20-5.40); RED CELL DISTRIBUTION WIDTH 13.8 % (11.6-14.8); WHITE BLOOD COUNT 11.9 K/UL (4.8-10.8)
[2018-11-28 22:18] LABS: ANION GAP 9 mmol/L (5-15); BLOOD UREA NITROGEN 21 mg/dL (7-18); CALCIUM 9.1 MG/DL (8.5-10.1); CARBON DIOXIDE 30 MMOL/L (21-32); CHLORIDE 107 MMOL/L (98-107); POTASSIUM 4.3 MMOL/L (3.5-5.1); SODIUM 146 MMOL/L (136-145)
[2018-11-28 22:33] LABS: ALANINE AMINOTRANSFERASE 14 U/L (12-78); ALBUMIN 3.2 G/DL (3.4-5.0); ALBUMIN/GLOBULIN RATIO 0.8 (1.0-2.7); ALKALINE PHOSPHATASE 72 U/L (46-116); ASPARTATE AMINO TRANSFERASE 22 U/L (15-37); BILIRUBIN,TOTAL 0.3 MG/DL (0.2-1.0); CKMB < 0.5 NG/ML (0.0-3.6); CREATINE KINASE 60 U/L (26-308)
[2018-11-28] MEDS ORDERED: HYDROcodone/Acetamin 5/325 tab ORAL ONE (22:45)
--- NOTE | 2018-11-28 23:24 | NUR ---
ED Nurse Note: CAlled and gave report to Jeniffer SY.
--- NOTE | 2018-11-28 23:40 | NUR ---
ED Nurse Note: Patient escorted to floor by Er laura and RN without incident. Belongings taken in two trips. Patient
[2018-11-29] VITALS (7 sets, daily range): BP systolic 115–142; BP diastolic 53–82
--- NOTE | 2018-11-29 | NUR ---
NURSE NOTES: Received pt from YOSSI Emery. Pt awake, alert, and c/o pain and hunger. Bed in lowest position. Call light within reach. IV site intact and patent. No apparent respiratory distress while on 2L NC. Pt unable to lie flat. Bilateral ankle edema noted. No apparent wounds. Will call MD for orders and will continue to monitor.
[2018-11-29 00:35] LABS: APPEARANCE,URINE CLEAR; BILIRUBIN, URINE NEGATIVE (NEGATIVE); GLUCOSE, URINE (UA) NEGATIVE (NEGATIVE); KETONES,URINE 1+ (NEGATIVE); LEUKOCYTE ESTERASE ,URINE 2+ (NEGATIVE); NITRITE,URINE NEGATIVE (NEGATIVE); PH,URINE 6 (4.5-8.0); PROTEIN,URINE 1+ (NEGATIVE); UROBILINOGEN,URINE 4 MG/DL (0.0-1.0)
--- NOTE | 2018-11-29 00:37 | NUR ---
NURSE NOTES: Called and left a message with Dr. Serrano requesting admission orders. Awaiting call back.
[2018-11-29 00:38] LABS: COLOR,URINE YELLOW
--- NOTE | 2018-11-29 01:58 | Emergency Room Report ---
History of Present Illness General Chief Complaint: General Complaint Source: Patient Present Illness HPI 58-year-old female presents ED for evaluation. Complaining of shortness of breath x1 day. With leg swelling. States is difficult to walk because of the shortness of breath. Denies chest pain. History of CHF. Was recently admitted here but left AMA 2 days ago because she had to deal with some housing issues. States that she filled her prescriptions but states they are not helping. Denies fevers or chills. Denies cough. No other aggravating relieving factors. Denies any other associated symptoms Allergies: Coded Allergies: Basil (Verified Allergy, Unknown, 11/16/18) Patient History Past Medical History: DM, HTN, CHF Past Surgical History: pacemaker Pertinent Family History: none Social History: Denies: smoking, alcohol use, drug use Last Menstrual Period: n/a Now: No Immunizations: UTD Reviewed Nursing Documentation: PMH: Agreed; PSxH: Agreed Nursing Documentation-PMH Past Medical History: No History, Except For Hx Cardiac Problems: Yes - CHF Hx Hypertension: Yes Hx Pacemaker: Yes - 7yrs ago Hx Diabetes: Yes Hx Cancer: No - Leukemia - "in remission" Hx Gastrointestinal Problems: Yes Hx Neurological Problems: No Review of Systems All Other Systems: negative except mentioned in HPI Physical Exam Vital Signs Date Time Temp Pulse Resp B/P (MAP) Pulse Ox O2 Delivery O2 Flow Rate FiO2 11/28/18 20:58 86 18 Room Air 11/28/18 20:58 98.4 162/102 (122) 98 11/29/18 00:20 2.0 Sp02 EP Interpretation: reviewed, normal General Appearance: no apparent distress, alert, GCS 15, non-toxic, obese Head: normocephalic, atraumatic Eyes: bilateral eye normal inspection, bilateral eye PERRL ENT: hearing grossly normal, normal pharynx, no angioedema, normal voice Neck: full range of motion, supple/symm/no masses Respiratory: chest non-tender, lungs clear, normal breath sounds, speaking full sentences Cardiovascular #1: regular rate, rhythm, no edema Cardiovascular #2: 2+ carotid (R), 2+ carotid (L), 2+ radial (R), 2+ radial (L) , 2+ dorsalis pedis (R), 2+ dorsalis pedis (L) Gastrointestinal: normal bowel sounds, non tender, soft, non-distended, no guarding, no rebound Rectal: deferred Genitourinary: normal inspection, no CVA tenderness Musculoskeletal: back normal, gait/station normal, normal range of motion, non- tender, swelling - 2+ pitting edema b/l LEs Neurologic: alert, oriented x3, responsive, motor strength/tone normal, sensory intact, speech normal Psychiatric: judgement/insight normal, memory normal, mood/affect normal, no suicidal/homicidal ideation Reflexes: 3+ bicep (R), 3+ bicep (L), 3+ tricep (R), 3+ tricep (L), 3+ knee (R) , 3+ knee (L) Lymphatic: no adenopathy Medical Decision Making Diagnostic Impression: Primary Impression: CHF exacerbation Qualified Codes: I50.9 - Heart failure, unspecified Additional Impression: Edema Qualified Codes: R60.9 - Edema, unspecified ER Course Hospital Course 58-year-old female presents ED complaining of shortness of breath, leg swelling Differential diagnoses include: ND/unstable angina, contusion, muscle strain, PTX, rib fracture Clinical course Patient placed on stretcher. on diagnostic cardiac sonographer. After initial history and physical I ordered labs, EKG, chest x-ray labs reviewed- no leukocytosis, hemoglobin/hematocrit stable, creatinine elevated, troponins negative, BNP wnl Chest x-ray- cardiomegaly, pulmonary congestion, pacemaker Lasix given. Case discussed with Dr. Serrano and he agreed to accept the patient to his service for further care and support I. I feel this is a highly complex case requiring extensive working including EKG/Rhythm strip, Xray/CT/US, Blood/urine lab work, repeat exams while in ED, and administration of strong opiates/narcotics for pain control, admission to hospital or close patient follow up. Diagnosis - CHF exacerbation, edema admitted to telemetry in serious condition Labs Test 11/28/18 21:48 White Blood Count 11.9 K/UL (4.8-10.8) Red Blood Count 4.42 M/UL (4.20-5.40) Hemoglobin 12.6 G/DL (12.0-16.0) Hematocrit 37.8 % (37.0-47.0) Mean Corpuscular Volume 85 FL (80-99) Mean Corpuscular Hemoglobin 28.5 PG (27.0-31.0) Mean Corpuscular Hemoglobin Concent 33.4 G/DL (32.0-36.0) Red Cell Distribution Width 13.8 % (11.6-14.8) Platelet Count 336 K/UL (150-450) Mean Platelet Volume 9.4 FL (6.5-10.1) Neutrophils (%) (Auto) 60.1 % (45.0-75.0) Lymphocytes (%) (Auto) 28.9 % (20.0-45.0) Monocytes (%) (Auto) 5.7 % (1.0-10.0) Eosinophils (%) (Auto) 1.4 % (0.0-3.0) Basophils (%) (Auto) 3.9 % (0.0-2.0) Urine Color Yellow Urine Appearance Clear Urine pH 6 (4.5-8.0) Urine Specific [place] 1.015 (1.005-1.035) Urine Protein 1+ (NEGATIVE) Urine Glucose (UA) Negative (NEGATIVE) Urine Ketones 1+ (NEGATIVE) Urine Blood Negative (NEGATIVE) Urine Nitrite Negative (NEGATIVE) Urine Bilirubin Negative (NEGATIVE) Urine Urobilinogen 4 MG/DL (0.0-1.0) Urine Leukocyte Esterase 2+ (NEGATIVE) Urine RBC 0-2 /HPF (0 - 2) Urine WBC 15-20 /HPF (0 - 2) Urine Squamous Epithelial Cells Many /LPF (NONE/OCC) Urine Bacteria Moderate /HPF (NONE) Sodium Level 146 MMOL/L (136-145) Potassium Level 4.3 MMOL/L (3.5-5.1) Chloride Level 107 MMOL/L (98-107) Carbon Dioxide Level 30 MMOL/L (21-32) Anion Gap 9 mmol/L (5-15) Blood Urea Nitrogen 21 mg/dL (7-18) Creatinine 1.0 MG/DL (0.55-1.30) Estimat Glomerular Filtration Rate > 60 mL/min (>60) Glucose Level 160 MG/DL (74-106) Calcium Level 9.1 MG/DL (8.5-10.1) Total Bilirubin 0.3 MG/DL (0.2-1.0) Aspartate Amino Transf (AST/SGOT) 22 U/L (15-37) Alanine Aminotransferase (ALT/SGPT) 14 U/L (12-78) Alkaline Phosphatase 72 U/L (46-116) Total Creatine Kinase 60 U/L (26-308) Creatine Kinase MB < 0.5 NG/ML (0.0-3.6) Creatine Kinase MB Relative Index 0.8 Troponin I 0.000 ng/mL (0.000-0.056) Pro-B-Type Natriuretic Peptide 11 pg/mL (0-125) Total Protein 7.3 G/DL (6.4-8.2) Albumin 3.2 G/DL (3.4-5.0) Globulin 4.1 g/dL Albumin/Globulin Ratio 0.8 (1.0-2.7) EKG Diagnostic Results Rate: normal Rhythm: NSR ST Segments: no acute changes ASA given to the pt in ED: No Rhythm Strip Diag. Results EP Interpretation: yes Rhythm: NSR, no PVC's, no ectopy Chest X-Ray Diagnostic Results Chest X-Ray Diagnostic Results : Chest X-Ray Ordered: Yes # of Views/Limited/Complete: 1 View Indication: Shortness of Breath EP Interpretation: Yes Interpretation: no consolidation, no effusion, no pneumothorax, other - cardiomegaly. interstitial congestion. pacemaker Impression: Other - CHF Electronically Signed by: Electronically signed by Kyree Garces MD Last Vital Signs Date Time Temp Pulse Resp B/P (MAP) Pulse Ox O2 Delivery O2 Flow Rate FiO2 11/29/18 00:20 Nasal Cannula 2.0 11/29/18 00:00 98.2 84 18 133/82 (99) 97 Status: improved Disposition: ADMITTED INPATIENT Condition: Serious Referrals: NON PHYSICIAN (PCP) Kyree Garces MD Nov 29, 2018 01:58
[2018-11-29] MEDS ORDERED: Morphine Sulfate 4mg/ml Inj (IV USE ONLY) IVP PRN (02:45)
[2018-11-29] MEDS ORDERED: Morphine Sulfate 2mg/ml Inj(IV/IM USE ONLY) IVP PRN (03:15)
[2018-11-29] MEDS ORDERED: Zolpidem 5mg tab ORAL PRN (04:00)
[2018-11-29] MEDS: NovoLOG Insulin Flexpen SUBQ SCH ×4 (06:30→20:52)
[2018-11-29] MEDS: metFORMIN 500mg tab ORAL SCH ×2 (06:37→16:36)
[2018-11-29] MEDS: sitaGLIPtin 50mg tab ORAL SCH (06:37)
--- NOTE | 2018-11-29 07:22 | NUR ---
HAND-OFF: Report given to YOSSI Dang. Pt stable.
--- NOTE | 2018-11-29 07:23 | NUR ---
NURSE NOTES: Received report from YOSSI Swift. Observed patient sitting on bed, eating breakfast. Alert, awake, able to make needs known. On room air, no respiratory distress noted at this time. IV on right hand intact and patent. Denies pain/discomfort at this time. Safety precautions in place, bed locked, alarmed, and in lowest position, side rails up x3, and call light left within reach. Instructed to call for assistance, verbalized understanding. Will continue with plan of care.
[2018-11-29 07:29] LABS: BASOPHILS % (AUTO) 3.6 % (0.0-2.0); EOSINOPHILS % (AUTO) 2.7 % (0.0-3.0); HEMATOCRIT 40.3 % (37.0-47.0); HEMOGLOBIN 12.6 G/DL (12.0-16.0); LYMPHOCYTES % (AUTO) 29.7 % (20.0-45.0); MEAN CORPUSCULAR VOLUME 92 FL (80-99); MONOCYTES % (AUTO) 6.9 % (1.0-10.0); PLATELET COUNT 365 K/UL (150-450); RED BLOOD COUNT 4.38 M/UL (4.20-5.40); RED CELL DISTRIBUTION WIDTH 15.2 % (11.6-14.8); WHITE BLOOD COUNT 12.8 K/UL (4.8-10.8)
[2018-11-29 08:00] LABS: ALANINE AMINOTRANSFERASE 15 U/L (12-78); ALBUMIN 3.2 G/DL (3.4-5.0); ALBUMIN/GLOBULIN RATIO 0.9 (1.0-2.7); ALKALINE PHOSPHATASE 76 U/L (46-116); ANION GAP 7 mmol/L (5-15); ASPARTATE AMINO TRANSFERASE 23 U/L (15-37); BILIRUBIN,TOTAL 0.2 MG/DL (0.2-1.0); BLOOD UREA NITROGEN 18 mg/dL (7-18); CALCIUM 9.2 MG/DL (8.5-10.1); CARBON DIOXIDE 31 MMOL/L (21-32); CHLORIDE 107 MMOL/L (98-107); CREATININE 0.7 MG/DL (0.55-1.30); POTASSIUM 4.7 MMOL/L (3.5-5.1); SODIUM 145 MMOL/L (136-145)
[2018-11-29] MEDS: Losartan 50mg tab ORAL SCH (08:57)
[2018-11-29] MEDS: Aspirin Baby 81mg ORAL SCH (08:57)
[2018-11-29] MEDS: Furosemide 40mg tab ORAL SCH (08:58)
[2018-11-29] MEDS: Enoxaparin 40mg Inj SUBQ SCH (09:01)
[2018-11-29] MEDS: HYDROcodone/Acetamin 5/325 tab ORAL PRN ×2 (09:04→20:00)
--- NOTE | 2018-11-29 10:42 | General Progress Note ---
Assessment/Plan Status: stable Assessment/Plan: PHYSICAL EXAMINATION: VITAL SIGNS: Blood pressure 130/80, temperature 98.2, pulse oximetry 98% on room air, respiratory rate 18, and temperature 98.2. HEAD AND NECK: Atraumatic and normocephalic. CHEST: Clear to auscultation. HEART: S1, S2. Regular rate and rhythm. ABDOMEN: Soft. No organomegaly. MUSCULOSKELETAL: Positive for 2+ pitting edema in the lower extremity. NEUROLOGIC: The patient is awake, alert, oriented x3. LABORATORY DATA: Labs dated November 18 shows BUN 15, creatinine 0.8, and glucose of 120. Urine positive for opiates. ASSESSMENT AND PLAN: 1. CHF exacerbation. 2. Diabetes type 2. 3. Positive for opiate use as an outpatient. 4. Cardiomyopathy on pacemaker. PLAN OF CARE: Subjective Allergies: Coded Allergies: Basil (Verified Allergy, Unknown, 11/16/18) Objective Last 24 Hour Vital Signs Date Time Temp Pulse Resp B/P (MAP) Pulse Ox O2 Delivery O2 Flow Rate FiO2 11/29/18 09:00 Nasal Cannula 2.0 11/29/18 08:57 136/69 11/29/18 08:00 98.2 89 18 136/69 (91) 92 11/29/18 07:51 94 11/29/18 04:00 88 11/29/18 04:00 98.2 93 18 138/63 (88) 97 11/29/18 00:20 Nasal Cannula 2.0 11/29/18 00:00 98.2 84 18 133/82 (99) 97 11/29/18 00:00 87 11/28/18 23:44 98.4 86 18 162/102 98 Room Air 11/28/18 23:16 98.4 11/28/18 20:58 98.4 86 18 162/102 98 Room Air 11/28/18 20:58 98.4 86 18 162/102 (122) 98 Room Air 11/28/18 20:58 86 18 Room Air Intake and Output 11/28/18 11/29/18 19:00 07:00 Intake Total 0 ml Balance 0 ml Intake Oral 0 ml # Bowel Movements 2 Laboratory Tests 11/28/18 21:48: White Blood Count 11.9H, Red Blood Count 4.42, Hemoglobin 12.6, Hematocrit 37.8 , Mean Corpuscular Volume 85, Mean Corpuscular Hemoglobin 28.5, Mean Corpuscular Hemoglobin Concent 33.4, Red Cell Distribution Width 13.8, Platelet Count 336, Mean Platelet Volume 9.4, Neutrophils (%) (Auto) 60.1, Lymphocytes (% ) (Auto) 28.9, Monocytes (%) (Auto) 5.7, Eosinophils (%) (Auto) 1.4, Basophils ( %) (Auto) 3.9H, Urine Color Yellow, Urine Appearance Clear, Urine pH 6, Urine Specific [place] 1.015, Urine Protein 1+H, Urine Glucose (UA) Negative, Urine Ketones 1+H, Urine Blood Negative, Urine Nitrite Negative, Urine Bilirubin Negative, Urine Urobilinogen 4H, Urine Leukocyte Esterase 2+H, Urine RBC 0-2, Urine WBC 15-20H, Urine Squamous Epithelial Cells ManyH, Urine Bacteria ModerateH, Sodium Level 146H, Potassium Level 4.3, Chloride Level 107, Carbon Dioxide Level 30, Anion Gap 9, Blood Urea Nitrogen 21H, Creatinine 1.0, Estimat Glomerular Filtration Rate > 60, Glucose Level 160H, Calcium Level 9.1, Total Bilirubin 0.3, Aspartate Amino Transf (AST/SGOT) 22, Alanine Aminotransferase ( ALT/SGPT) 14, Alkaline Phosphatase 72, Total Creatine Kinase 60, Creatine Kinase MB < 0.5, Creatine Kinase MB Relative Index 0.8, Troponin I 0.000, Pro-B- Type Natriuretic Peptide 11, Total Protein 7.3, Albumin 3.2L, Globulin 4.1, Albumin/Globulin Ratio 0.8L 11/29/18 06:49: White Blood Count 12.8H, Red Blood Count 4.38, Hemoglobin 12.6, Hematocrit 40.3 , Mean Corpuscular Volume 92#, Mean Corpuscular Hemoglobin 28.7, Mean Corpuscular Hemoglobin Concent 31.3L, Red Cell Distribution Width 15.2H, Platelet Count 365, Mean Platelet Volume 11.8H, Neutrophils (%) (Auto) 57.0, Lymphocytes (%) (Auto) 29.7, Monocytes (%) (Auto) 6.9, Eosinophils (%) (Auto) 2.7, Basophils (%) (Auto) 3.6H, Sodium Level 145, Potassium Level 4.7, Chloride Level 107, Carbon Dioxide Level 31, Anion Gap 7, Blood Urea Nitrogen 18, Creatinine 0.7, Estimat Glomerular Filtration Rate > 60, Glucose Level 105, Calcium Level 9.2, Total Bilirubin 0.2, Aspartate Amino Transf (AST/SGOT) 23, Alanine Aminotransferase (ALT/SGPT) 15, Alkaline Phosphatase 76, Troponin I 0.000, Total Protein 6.7, Albumin 3.2L, Globulin 3.5, Albumin/Globulin Ratio 0.9L, Hemoglobin A1c 6.7H Height (Feet): 5 Height (Inches): 8.00 Weight (Pounds): 399 Lauren Serrano MD Nov 29, 2018 10:42
--- NOTE | 2018-11-29 10:43 | History & Physical ---
History and Physical History & Physicial SOURCE OF INFORMATION AND HISTORY OF PRESENT ILLNESS: The patient is a 58-year-old female with history of coronary artery disease and cardiac arrhythmias. Status post hospitalization and DC yesterday. TOday presented with similar episoed of worsening of shortness of breath and swelling on the lower extremities. Initial evaluation in the emergency room shows the low numbers, hypotension. PAST MEDICAL HISTORY: Including but not limited to cardiac arrhythmias, CHF, hyperlipidemia, diabetes. CURRENT HOSPITAL MEDICATIONS: Including metformin 1000, sliding scale insulin, Lasix, aspirin. FAMILY HISTORY: Reviewed and noncontributory. REVIEW OF SYSTEMS: All 14 elements of review of systems reviewed pertinent positive and negative as above. ALLERGIES: NKDA. PAST SURGICAL HISTORY: Pacemaker placement. PHYSICAL EXAMINATION: VITAL SIGNS: Blood pressure 130/80, temperature 98.2, pulse oximetry 98% on room air, respiratory rate 18, and temperature 98.2. HEAD AND NECK: Atraumatic and normocephalic. CHEST: Clear to auscultation. HEART: S1, S2. Regular rate and rhythm. ABDOMEN: Soft. No organomegaly. MUSCULOSKELETAL: Positive for 2+ pitting edema in the lower extremity. NEUROLOGIC: The patient is awake, alert, oriented x3. LABORATORY DATA: Labs dated November 18 shows BUN 15, creatinine 0.8, and glucose of 120. Urine positive for opiates. ASSESSMENT AND PLAN: 1. CHF exacerbation. 2. Diabetes type 2. 3. Positive for opiate use as an outpatient. 4. Cardiomyopathy on pacemaker. PLAN OF CARE: Cardiac monitoring Cardiology notified Lauren Serrano MD Nov 29, 2018 10:43
--- NOTE | 2018-11-29 12:01 | Diagnostic Imaging Report ---
Indication: Dyspnea Comparison: 11/18/2018 A single view chest radiograph was obtained. Findings: Heart is enlarged. Hilar vessels are prominent and there is cephalization with suggestion of mild pulmonary vascular congestion. Pacemaker again noted. IMPRESSION: Suspected mild pulmonary vascular congestion
--- NOTE | 2018-11-29 13:27 | NUR ---
*-* INSURANCE *-* ALL AVAILABLE CLINICALS HAVE BEEN FAXED TO: [facility]: CHANDU RANKIN WILL BE HANDLING THIS ADMISSION F: [phone]
[2018-11-29] MEDS: Morphine Sulfate 2mg/ml Inj(IV/IM USE ONLY) IVP PRN ×2 (14:39→23:00)
[2018-11-29] MEDS: Guaifenesin/DM 10ml syrup ORAL PRN (14:43)
--- NOTE | 2018-11-29 16:19 | NUR ---
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 98.4 HR 86 RR 18 B/P 162/102 BUN 21 WBC 11.9 NA 146 IS: LASIX IV MORPHINE IV ZITHROMAX PO ADMITTED TO TELE @ [id number] TELE STATUS DCP RETURN HOME
--- NOTE | 2018-11-29 19:20 | NUR ---
HAND-OFF: Report given to Jessi Floyd RN. Patient in stable condition.
--- NOTE | 2018-11-29 20:00 | NUR ---
NURSE NOTES: Report received from Laurence SY. Patient is observed in bed, asleep but arousable by voice. Patient is c/o back pain; will address as appropriate. Respiratory even and unlabored. IV site is asymptomatic, patent, and intact. Bed is in lowest position with side rails up x2 and brakes are engaged. Bed alarm is on. Encouraged patient to use call light when in need of assistance, pt verbalized understanding. Will continue to monitor.
--- NOTE | 2018-11-30 00:09 | NUR ---
NURSE NOTES: Patient is asleep but arousable by voice. Denies pain at this time. VSS. Will continue to monitor.
[2018-11-30] MEDS: Guaifenesin/DM 10ml syrup ORAL PRN ×2 (01:57→18:40)
[2018-11-30] MEDS: HYDROcodone/Acetamin 5/325 tab ORAL PRN ×2 (02:09→13:22)
--- NOTE | 2018-11-30 03:32 | NUR ---
NURSE NOTES: received patient from YOSSI Bowen. patient is observed sleeping in bed, arousable to voice, denies pain at this time. patient is on 2 L O2 via NC, tolerating well. no s/sx of respiratory distress noted at this time. IV site is patent, intact, and asymptomatic. bed in lowest position and locked, siderails up X2, call light within reach. will continue to monitor.
--- NOTE | 2018-11-30 03:49 | NUR ---
HAND-OFF: Report given to Crystal SY. Patient is asleep but arousable by voice. No s/s of acute distress at this time. Endorsed plan of care.
[2018-11-30 04:00] VITALS: BP 133/62
[2018-11-30] MEDS: NovoLOG Insulin Flexpen SUBQ SCH ×4 (06:30→20:00)
[2018-11-30] MEDS: metFORMIN 500mg tab ORAL SCH ×2 (06:58→16:12)
[2018-11-30] MEDS: sitaGLIPtin 50mg tab ORAL SCH (06:58)
--- NOTE | 2018-11-30 07:05 | NUR ---
HAND-OFF: Report given to YOSSI Dang. patient is in stable condition.
--- NOTE | 2018-11-30 07:06 | NUR ---
NURSE NOTES: Received report from YOSSI Rojas. Observed patient in bed, asleep, arousable to verbal stimuli. On O2 2L via NC, no apparent resp distress noted at this time. IV site intact and patent. Safety precautions in place; bed locked, alarmed, and in lowest position, side rails up x3, and call light left within reach. Instructed to call for assistance, verbalized understanding. Will continue with plan of care.
[2018-11-30 08:00] VITALS: BP 130/60
[2018-11-30] MEDS: Aspirin Baby 81mg ORAL SCH (09:14)
[2018-11-30] MEDS: Losartan 50mg tab ORAL SCH (09:15)
[2018-11-30] MEDS: Furosemide 40mg tab ORAL SCH (09:15)
[2018-11-30] MEDS: Morphine Sulfate 2mg/ml Inj(IV/IM USE ONLY) IVP PRN ×2 (09:15→19:53)
[2018-11-30 09:27] LABS: BASOPHILS % (AUTO) 3.6 % (0.0-2.0); HEMATOCRIT 39.8 % (37.0-47.0); HEMOGLOBIN 12.4 G/DL (12.0-16.0); LYMPHOCYTES % (AUTO) 27.3 % (20.0-45.0); MEAN CORPUSCULAR VOLUME 91 FL (80-99); MONOCYTES % (AUTO) 5.8 % (1.0-10.0); NEUTROPHILS % (AUTO) 60.4 % (45.0-75.0); PLATELET COUNT 318 K/UL (150-450); RED BLOOD COUNT 4.37 M/UL (4.20-5.40); RED CELL DISTRIBUTION WIDTH 14.7 % (11.6-14.8); WHITE BLOOD COUNT 13.9 K/UL (4.8-10.8)
[2018-11-30] MEDS: Enoxaparin 40mg Inj SUBQ SCH (09:32)
--- NOTE | 2018-11-30 09:57 | General Progress Note ---
Assessment/Plan Status: stable Assessment/Plan: S: My whole body hurts O: Denies any chest pain. Complains of exertional sob. PHYSICAL EXAMINATION:HEAD AND NECK: Atraumatic and normocephalic. CHEST: Clear to auscultation.HEART: S1, S2. Regular rate and rhythm. ABDOMEN: Soft. No organomegaly.MUSCULOSKELETAL: Positive for 2+ pitting edema in the lower extremity. NEUROLOGIC: The patient is awake, alert, oriented x3. LABORATORY DATA: Labs dated November 18 shows BUN 15, creatinine 0.8, and glucose of 120. Urine positive for opiates. ASSESSMENT AND PLAN: 1. CHF exacerbation. 2. Diabetes type 2. 3. Positive for opiate use as an outpatient. 4. Cardiomyopathy on pacemaker. PLan: Cardiology, Dr Rinaldi consulted WIll followup serial troponin Optimse medication Subjective Allergies: Coded Allergies: Basil (Verified Allergy, Unknown, 11/16/18) Objective Last 24 Hour Vital Signs Date Time Temp Pulse Resp B/P (MAP) Pulse Ox O2 Delivery O2 Flow Rate FiO2 11/30/18 09:15 130/60 11/30/18 09:00 Nasal Cannula 2.0 11/30/18 08:00 98.2 81 20 130/60 (83) 95 11/30/18 04:00 98.7 85 20 133/62 (85) 95 11/30/18 04:00 85 11/30/18 00:03 83 11/29/18 23:42 98.0 85 20 142/59 (86) 97 11/29/18 21:12 Nasal Cannula 2.0 11/29/18 20:41 98.2 88 20 115/67 (83) 97 11/29/18 19:24 83 11/29/18 16:00 98.6 74 20 128/64 (85) 97 11/29/18 15:24 83 11/29/18 12:16 87 11/29/18 12:00 98.6 87 20 131/53 (79) 97 Laboratory Tests 11/30/18 09:00: White Blood Count 13.9H, Red Blood Count 4.37, Hemoglobin 12.4, Hematocrit 39.8 , Mean Corpuscular Volume 91, Mean Corpuscular Hemoglobin 28.4, Mean Corpuscular Hemoglobin Concent 31.2L, Red Cell Distribution Width 14.7, Platelet Count 318, Mean Platelet Volume 10.6H, Neutrophils (%) (Auto) 60.4, Lymphocytes (%) (Auto) 27.3, Monocytes (%) (Auto) 5.8, Eosinophils (%) (Auto) 3.0, Basophils (%) (Auto) 3.6H, Sodium Level [Pending], Potassium Level [Pending ], Chloride Level [Pending], Carbon Dioxide Level [Pending], Blood Urea Nitrogen [Pending], Creatinine [Pending], Estimat Glomerular Filtration Rate [ Pending], Glucose Level [Pending], Calcium Level [Pending], Total Bilirubin [ Pending], Aspartate Amino Transf (AST/SGOT) [Pending], Alanine Aminotransferase (ALT/SGPT) [Pending], Alkaline Phosphatase [Pending], Total Protein [Pending], Albumin [Pending], Globulin [Pending] Height (Feet): 5 Height (Inches): 8.00 Weight (Pounds): 399 Lauren Serrano MD Nov 30, 2018 09:57
[2018-11-30 09:58] LABS: ALANINE AMINOTRANSFERASE 13 U/L (12-78); ALBUMIN/GLOBULIN RATIO 0.8 (1.0-2.7); ALKALINE PHOSPHATASE 66 U/L (46-116); ANION GAP 4 mmol/L (5-15); ASPARTATE AMINO TRANSFERASE 19 U/L (15-37); BILIRUBIN,TOTAL 0.3 MG/DL (0.2-1.0); BLOOD UREA NITROGEN 16 mg/dL (7-18); CALCIUM 9.4 MG/DL (8.5-10.1); CARBON DIOXIDE 34 MMOL/L (21-32); CHLORIDE 103 MMOL/L (98-107); CREATININE 0.9 MG/DL (0.55-1.30); POTASSIUM 4.5 MMOL/L (3.5-5.1); SODIUM 141 MMOL/L (136-145)
[2018-11-30 12:00] VITALS: BP 135/62
--- NOTE | 2018-11-30 12:35 | CDS Physician Query ---
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 ALE
--- NOTE | 2018-11-30 12:45 | NUR ---
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 98.2 HR 81 RR 20 B/P 130/60 WBC 13.9 CO2 34 IS: LASIX PO PROTONIX PO ASA PO COZAAR PO TELE STATUS
--- NOTE | 2018-11-30 13:01 | NUR ---
RD ASSESSMENT & RECOMMENDATIONS SEE CARE ACTIVITY FOR COMPLETE ASSESSMENT DAILY ESTIMATED NEEDS: Needs based on Morbidy obesity, CHF/ 94.5kg abw 18-20 kcals/kg 0965-1193 total kcals 1-1.5 g protein/kg 95-142 g total protein Fluid per MD, on lasix NUTRITION DIAGNOSIS: * Decreased sodium and fat/cholesterol intake needs R/T cardiac dx, fluid retention, morbidly obesity, as evidenced by CHF dx h/o pacemaker, adm w. edema, on lasix, BMI >50. CURRENT DIET:Cardiac PO DIET RECOMMENDATIONS: CARDIAC + CCHO MED ADDITIONAL RECOMMENDATIONS: * Daily standing wt as able * Monitor lytes daily while on lasix, replete as needed * B-complex qdaily * Diet edu as able, as alert
[2018-11-30 16:00] VITALS: BP 143/87
--- NOTE | 2018-11-30 19:04 | NUR ---
HAND-OFF: Report given to YOSSI Umana. Patient in stable condition.
--- NOTE | 2018-11-30 19:15 | NUR ---
NURSE NOTES: Received report from Maria C SY, pt. in bed awake, A/O x's4- able to make needs known, no signs or symptoms of acute cardiac or respiratory distress noted, bed in lowest position and call light within easy reach, bed alarm on, side rails up x's3 and safety brakes engaged, pt. appears to be tolerating current NC settings at 2L- no distress noted, pt. appears to be resting comfortable and appears clean and dry, Rt. hand 20G IV intact and patent, safety measures continued, will continue with plan of care.
[2018-11-30 20:00] VITALS: BP 151/77
--- NOTE | 2018-11-30 21:14 | Cardiology Progress Note ---
Assessment/Plan Assessment/Plan The patient is seen and examined, full consult note will be dictated. Objective Last 24 Hour Vital Signs Date Time Temp Pulse Resp B/P (MAP) Pulse Ox O2 Delivery O2 Flow Rate FiO2 11/30/18 20:23 98.2 11/30/18 20:00 86 11/30/18 20:00 98.2 72 20 151/77 (101) 96 11/30/18 16:00 98.2 76 20 143/87 (105) 96 11/30/18 15:35 78 11/30/18 12:00 Nasal Cannula 2.0 11/30/18 12:00 98.7 82 20 135/62 (86) 97 11/30/18 11:41 84 11/30/18 09:15 130/60 11/30/18 09:00 Nasal Cannula 2.0 11/30/18 08:00 98.2 81 20 130/60 (83) 95 11/30/18 07:37 82 11/30/18 04:00 98.7 85 20 133/62 (85) 95 11/30/18 04:00 85 11/30/18 00:03 83 11/29/18 23:42 98.0 85 20 142/59 (86) 97 Laboratory Tests Test 11/30/18 09:00 White Blood Count 13.9 K/UL (4.8-10.8) H Red Blood Count 4.37 M/UL (4.20-5.40) Hemoglobin 12.4 G/DL (12.0-16.0) Hematocrit 39.8 % (37.0-47.0) Mean Corpuscular Volume 91 FL (80-99) Mean Corpuscular Hemoglobin 28.4 PG (27.0-31.0) Mean Corpuscular Hemoglobin Concent 31.2 G/DL (32.0-36.0) L Red Cell Distribution Width 14.7 % (11.6-14.8) Platelet Count 318 K/UL (150-450) Mean Platelet Volume 10.6 FL (6.5-10.1) H Neutrophils (%) (Auto) 60.4 % (45.0-75.0) Lymphocytes (%) (Auto) 27.3 % (20.0-45.0) Monocytes (%) (Auto) 5.8 % (1.0-10.0) Eosinophils (%) (Auto) 3.0 % (0.0-3.0) Basophils (%) (Auto) 3.6 % (0.0-2.0) H Sodium Level 141 MMOL/L (136-145) Potassium Level 4.5 MMOL/L (3.5-5.1) Chloride Level 103 MMOL/L (98-107) Carbon Dioxide Level 34 MMOL/L (21-32) H Anion Gap 4 mmol/L (5-15) L Blood Urea Nitrogen 16 mg/dL (7-18) Creatinine 0.9 MG/DL (0.55-1.30) Estimat Glomerular Filtration Rate > 60 mL/min (>60) Glucose Level 123 MG/DL (74-106) H Calcium Level 9.4 MG/DL (8.5-10.1) Total Bilirubin 0.3 MG/DL (0.2-1.0) Aspartate Amino Transf (AST/SGOT) 19 U/L (15-37) Alanine Aminotransferase (ALT/SGPT) 13 U/L (12-78) Alkaline Phosphatase 66 U/L (46-116) Total Protein 7.0 G/DL (6.4-8.2) Albumin 3.0 G/DL (3.4-5.0) L Globulin 4.0 g/dL Albumin/Globulin Ratio 0.8 (1.0-2.7) L Microbiology Date/Time Source Procedure Growth Status 11/28/18 21:48 Urine,Clean Catch Urine Culture - Preliminary Gram Positive Cocci Resulted Patrick Rinaldi MD Nov 30, 2018 21:14
--- NOTE | 2018-11-30 23:41 | NUR ---
NURSE NOTES: Left message for DR. Serrano- pt. complaining of pain to abdominal area- pt. stating she has history of gall bladder and that it feels like that- awaiting for call back from doctor.
[2018-12-01] VITALS (7 sets, daily range): BP systolic 102–159; BP diastolic 55–92
--- NOTE | 2018-12-01 00:50 | NUR ---
NURSE NOTES: Left second message for DR. Serrano- pt. complaining of pain to abdominal area- pt. stating she has history of gall bladder and that it feels like that- awaiting for call back from doctor.
--- NOTE | 2018-12-01 01:02 | NUR ---
NURSE NOTES: PER DR. Zach jolley to order Mylanta 30mls prn Q6hrs - upset stomach- orders carried out. Addendum: 12/01/18 at 0105 by RUSTY MEDEIROS RN RN made DR. Serrano aware pt. stating history of gall bladder pain.
--- NOTE | 2018-12-01 01:12 | NUR ---
NURSE NOTES: went to go administer medicine Mylanta to pt. - she refused and stated she is feeling much better now- returned medicine back to [facility]. Pt. appears to be resting comfortably in bed watching television.
[2018-12-01] MEDS: Guaifenesin/DM 10ml syrup ORAL PRN ×2 (03:01→22:40)
[2018-12-01] MEDS: NovoLOG Insulin Flexpen SUBQ SCH ×4 (06:20→21:00)
[2018-12-01] MEDS: sitaGLIPtin 50mg tab ORAL SCH (06:34)
[2018-12-01] MEDS: metFORMIN 500mg tab ORAL SCH ×2 (06:34→16:28)
--- NOTE | 2018-12-01 06:53 | NUR ---
HAND-OFF: Report given to Jory RN, pt,. remains stable and no signs of distress noted.
--- NOTE | 2018-12-01 07:00 | NUR ---
NURSE NOTES: Received report from Dong/RN, Patient is asleep, Lying semi-mclaughlin's, resting comfortably. On 2l nasal canula, No signs of acute distress/SOB noted at this time. Able to make needs known. Checked IV site, patent, no bleeding, or infiltration noted. Bed at lowest position, and locked. brakes on, side rails up x3, Call light and personal belonging within reach. Will continue plan of care.
[2018-12-01] MEDS: Losartan 50mg tab ORAL SCH (08:50)
[2018-12-01] MEDS: Aspirin Baby 81mg ORAL SCH (08:50)
[2018-12-01] MEDS: Furosemide 40mg tab ORAL SCH (08:50)
[2018-12-01] MEDS: Enoxaparin 40mg Inj SUBQ SCH (08:52)
[2018-12-01] MEDS: Morphine Sulfate 2mg/ml Inj(IV/IM USE ONLY) IVP PRN ×2 (08:58→20:53)
[2018-12-01 09:44] LABS: BASOPHILS % (AUTO) 3.5 % (0.0-2.0); EOSINOPHILS % (AUTO) 2.2 % (0.0-3.0); HEMATOCRIT 39.8 % (37.0-47.0); HEMOGLOBIN 12.4 G/DL (12.0-16.0); LYMPHOCYTES % (AUTO) 26.4 % (20.0-45.0); MEAN CORPUSCULAR VOLUME 92 FL (80-99); MONOCYTES % (AUTO) 5.2 % (1.0-10.0); NEUTROPHILS % (AUTO) 62.8 % (45.0-75.0); PLATELET COUNT 327 K/UL (150-450); RED BLOOD COUNT 4.33 M/UL (4.20-5.40); RED CELL DISTRIBUTION WIDTH 14.8 % (11.6-14.8); WHITE BLOOD COUNT 14.1 K/UL (4.8-10.8)
[2018-12-01 09:57] LABS: ALANINE AMINOTRANSFERASE 12 U/L (12-78); ALBUMIN/GLOBULIN RATIO 0.8 (1.0-2.7); ALKALINE PHOSPHATASE 66 U/L (46-116); ANION GAP 4 mmol/L (5-15); ASPARTATE AMINO TRANSFERASE 16 U/L (15-37); BILIRUBIN,TOTAL 0.3 MG/DL (0.2-1.0); BLOOD UREA NITROGEN 13 mg/dL (7-18); CARBON DIOXIDE 36 MMOL/L (21-32); CHLORIDE 105 MMOL/L (98-107); CREATININE 0.8 MG/DL (0.55-1.30); POTASSIUM 4.1 MMOL/L (3.5-5.1); SODIUM 145 MMOL/L (136-145)
--- NOTE | 2018-12-01 13:09 | NUR ---
CASE MANAGEMENT: REVIEW 12/01/2018 SI:HEART FAILURE. EDEMA. T 97.9 HR 86 RR 20 B/P 117/60 SATS 99% ON 2L/NC WBC 14.1 CO2 36 MG 1.7 IS: ALLOPURINOL PO BID LIPITOR PO QHS GLUCOPHAGE PO BID ASA PO QD LASIX PO QD COZAAR PO QD LOVENOX SUBQ QD INSULIN ASPART SUBQ AC/HS MAG SULFATE IV X1 TELEMETRY
--- NOTE | 2018-12-01 13:15 | NUR ---
INSURANCE REVIEWS FAXED TO [phone]
--- NOTE | 2018-12-01 13:15 | Cardiology Report ---
APPROVED REPORT EKG Measurement Heart [id number] Sinus rhythm with frequent premature ventricular complexes Otherwise normal ECG
--- NOTE | 2018-12-01 13:42 | General Progress Note ---
Assessment/Plan Status: stable Assessment/Plan: S: My whole body hurts O: Denies any chest pain. Complains of exertional sob. PHYSICAL EXAMINATION:HEAD AND NECK: Atraumatic and normocephalic. CHEST: Clear to auscultation.HEART: S1, S2. Regular rate and rhythm. ABDOMEN: Soft. No organomegaly.MUSCULOSKELETAL: Positive for 2+ pitting edema in the lower extremity. NEUROLOGIC: The patient is awake, alert, oriented x3. LABORATORY DATA: Labs dated November 30, reviewed ASSESSMENT AND PLAN: 1. CHF exacerbation. 2. Diabetes type 2. 3. Positive for opiate use as an outpatient. 4. Cardiomyopathy on pacemaker. PLan: Cardiology, Dr Rinaldi consulted WIll followup serial troponin Optimse medication Asymptomatic UTI, will redo UA Subjective Allergies: Coded Allergies: Basil (Verified Allergy, Unknown, 11/16/18) Objective Last 24 Hour Vital Signs Date Time Temp Pulse Resp B/P (MAP) Pulse Ox O2 Delivery O2 Flow Rate FiO2 12/01/18 12:00 86 12/01/18 12:00 97.9 86 20 117/60 (79) 99 12/01/18 09:00 Nasal Cannula 2.0 12/01/18 08:50 138/69 12/01/18 08:36 95 Nasal Cannula 2.0 28 12/01/18 08:01 97.2 73 20 138/69 (92) 98 12/01/18 08:00 74 12/01/18 04:00 97.5 81 20 158/92 (114) 96 12/01/18 04:00 80 12/01/18 00:00 82 12/01/18 00:00 98.6 79 20 159/80 (106) 96 11/30/18 21:00 96 Nasal Cannula 2.0 11/30/18 20:23 98.2 11/30/18 20:00 86 11/30/18 20:00 98.2 72 20 151/77 (101) 96 11/30/18 20:00 2.0 11/30/18 20:00 Nasal Cannula 2.0 11/30/18 16:00 98.2 76 20 143/87 (105) 96 11/30/18 15:35 78 Intake and Output 11/30/18 12/01/18 18:59 06:59 Output Total 500 ml Balance -500 ml Output Urine Total 500 ml # Bowel Movements 1 1 Laboratory Tests 12/01/18 09:00: White Blood Count 14.1H, Red Blood Count 4.33, Hemoglobin 12.4, Hematocrit 39.8 , Mean Corpuscular Volume 92, Mean Corpuscular Hemoglobin 28.6, Mean Corpuscular Hemoglobin Concent 31.2L, Red Cell Distribution Width 14.8, Platelet Count 327, Mean Platelet Volume 11.4H, Neutrophils (%) (Auto) 62.8, Lymphocytes (%) (Auto) 26.4, Monocytes (%) (Auto) 5.2, Eosinophils (%) (Auto) 2.2, Basophils (%) (Auto) 3.5H, Sodium Level 145, Potassium Level 4.1, Chloride Level 105, Carbon Dioxide Level 36H, Anion Gap 4L, Blood Urea Nitrogen 13, Creatinine 0.8, Estimat Glomerular Filtration Rate > 60, Glucose Level 101, Calcium Level 9.0, Magnesium Level 1.7L, Total Bilirubin 0.3, Aspartate Amino Transf (AST/SGOT) 16, Alanine Aminotransferase (ALT/SGPT) 12, Alkaline Phosphatase 66, Total Protein 6.8, Albumin 3.0L, Globulin 3.8, Albumin/Globulin Ratio 0.8L Height (Feet): 5 Height (Inches): 8.00 Weight (Pounds): 398 Lauren Serrano MD Dec 01, 2018 13:42
[2018-12-01 18:53] LABS: APPEARANCE,URINE CLEAR; BILIRUBIN, URINE NEGATIVE (NEGATIVE); COLOR,URINE PALE YELLOW; GLUCOSE, URINE (UA) NEGATIVE (NEGATIVE); KETONES,URINE NEGATIVE (NEGATIVE); LEUKOCYTE ESTERASE ,URINE NEGATIVE (NEGATIVE); NITRITE,URINE NEGATIVE (NEGATIVE); PH,URINE 6 (4.5-8.0); PROTEIN,URINE NEGATIVE (NEGATIVE); UROBILINOGEN,URINE NORMAL MG/DL (0.0-1.0)
--- NOTE | 2018-12-01 19:00 | Consultation ---
DATE OF CONSULTATION: 11/30/2018 CARDIOLOGY CONSULTATION CONSULTING PHYSICIAN: Patrick Rinaldi M.D. REFERRING PHYSICIAN: Lauren Serrano M.D. REASON FOR CONSULTATION: Management of dyspnea and lower extremity edema. HISTORY OF PRESENT ILLNESS: The patient is a very unfortunate 58-year-old female, who was recently discharged from this facility after evaluation and management of shortness of breath and lower extremity edema. The patient had to leave the hospital AMA about two days ago to deal with some housing issues. She came back to the hospital with shortness of breath for about a day with associated bilateral lower extremity swelling. Of note, the patient is morbidly obese and nuclear stress test could not be obtained due to body habitus. She had a 2-D echocardiography done in the month of October, which showed a normal left ventricular ejection fraction measured at 65% with mild left ventricular hypertrophy, mild left enlargement, and grade 1 LV diastolic dysfunction, with moderate pulmonary hypertension. Upon arrival to the emergency department on this admission, blood pressure was 162/102 mmHg and heart rate was 86. Her troponin I level was 0 and beta-natriuretic peptide was 11. The patient was admitted to telemetry for further evaluation and management of shortness of breath and lower extremity edema. PAST MEDICAL HISTORY: Diabetes mellitus, hypertension, dual-chamber pacemaker implantation, history of leukemia, and history of gastroesophageal reflux disease. PAST SURGICAL HISTORY: Dual-chamber pacemaker implantation. FAMILY HISTORY: No premature coronary artery disease in the first-degree relatives. SOCIAL HISTORY: No history of tobacco, alcohol, or illicit drug use. MEDICATIONS: List of medications including allopurinol 300 mg twice daily, aspirin 81 mg p.o. daily, Lipitor 10 mg p.o. nightly, furosemide 80 mg p.o. daily, Cozaar 50 mg twice a day, metformin 500 mg twice a day, and Januvia 50 mg daily. REVIEW OF SYSTEMS: HEENT: Denies any headache, diplopia, or blurred vision. CONSTITUTIONAL: Denies any fever, chills, night sweats, or weight loss. CARDIOVASCULAR: Positive for shortness of breath with activities. No chest pain. There is bilateral lower extremity edema. No syncope. No PND or orthopnea. PULMONARY: Denies any cough, hemoptysis, or wheezing. Positive for shortness of breath. GASTROINTESTINAL: Denies any nausea, vomiting, diarrhea, constipation, abdominal pain, or GI bleed. GENITOURINARY: Denies any hematuria, dysuria, or incontinence. NEUROLOGICAL: Denies any motor dysfunction, sensory deficit, or altered speech. PHYSICAL EXAMINATION: VITAL SIGNS: Blood pressure at the time of arrival to the hospital was 162/102, respirations 18, pulse 86, and temperature 98.4 degrees Fahrenheit. O2 saturation of 98% on room air. GENERAL: The patient is a very unfortunate 58-year-old female, morbidly obese, in no apparent respiratory distress. HEENT: Atraumatic and normocephalic. Anicteric. Pupils are equal, round, and reactive to light and accommodation. Extraocular muscles intact. NECK: JVP less than 5 cm. No carotid bruit. Carotid upstroke is 2+ bilaterally. CARDIOVASCULAR: Normal S1 and S2. Regular rate and rhythm. No murmurs, gallops, or rubs. PMI is at fourth intercostal space in the midclavicular line. LUNGS: Diminished breath sounds. Poor inspiratory. ABDOMEN: Morbidly obese. No hepatosplenomegaly. Positive bowel sounds. EXTREMITIES: There is 2+ bilateral lower extremity edema. LABORATORY FINDINGS: WBC was 13.9, hemoglobin 12.4, hematocrit 39.8, and platelet count 318,000. Sodium was 141, potassium 4.5, chloride 103, bicarbonate 34, BUN 16, and creatinine 0.9. Glucose 123. Hemoglobin A1c 6.7. Calcium is 9.4. Troponin I was negative. ProBNP was 11. A 12-lead electrocardiogram shows sinus rhythm with no acute ischemic changes. ASSESSMENT AND PLAN: The patient is a very unfortunate 58-year-old female, who was seen in Cardiology consultation. 1. Dyspnea and lower extremity edema, most likely due to obesity hypoventilation syndrome to be a part of moderate pulmonary hypertension. A 2-D echocardiography shows normal LV systolic function measured at 60%. There is no evidence of increased intracardiac filling pressures. Normal beta-natriuretic peptide essentially rules out congestive heart failure. 2. Widened mediastinum at the previous admission was noted on the chest x-ray. CT of chest could not be done due to the patient's body habitus. 3. Moderate pulmonary hypertension, most likely secondary to a combination of obstructive sleep apnea or possibly chronic obstructive pulmonary disease. 4. History of diabetes mellitus. 5. History of hypertension. 6. Dual-chamber pacemaker implantation due to sick sinus syndrome during obstructive sleep apnea. I would like to thank Dr. Serrano for allowing me to participate in the care of this patient. Patrick Rinaldi M.D. DR: ADELE JOB#: [id number] CC:
--- NOTE | 2018-12-01 19:00 | NUR ---
Received patient from YOSSI Corley, patient in stable condition, resting in bed, AOx4, denies pain at this time, IV site on right hand G20, asymptomatic, intact, patent, bed low&locked, side rails upx2, will continue to monitor and reassess.
--- NOTE | 2018-12-01 19:31 | NUR ---
HAND-OFF: Report given to Laurence/RN, Patient is in stable condition. Endorsed plan of care.
--- NOTE | 2018-12-01 22:14 | Cardiology Progress Note ---
Assessment/Plan Assessment/Plan 1. Dyspnea and lower extremity edema, most likely due to obesity hypoventilation syndrome to be a part of moderate pulmonary hypertension. A 2-D echocardiography shows normal LV systolic function measured at 60%. There is no evidence of increased intracardiac filling pressures. Normal beta-natriuretic peptide essentially rules out congestive heart failure. 2. Widened mediastinum at the previous admission was noted on the chest x-ray. CT of chest could not be done due to the patient's body habitus. 3. Moderate pulmonary hypertension, most likely secondary to a combination of obstructive sleep apnea or possibly chronic obstructive pulmonary disease. 4. History of diabetes mellitus. 5. History of hypertension. 6. Dual-chamber pacemaker implantation due to sick sinus syndrome during obstructive sleep apnea. Subjective Subjective Sinus rhythm at rate of 84. Objective Last 24 Hour Vital Signs Date Time Temp Pulse Resp B/P (MAP) Pulse Ox O2 Delivery O2 Flow Rate FiO2 12/01/18 16:00 67 12/01/18 16:00 97.1 84 20 102/69 (80) 96 12/01/18 12:00 86 12/01/18 12:00 97.9 86 20 117/60 (79) 99 12/01/18 09:00 Nasal Cannula 2.0 12/01/18 08:50 138/69 12/01/18 08:36 95 Nasal Cannula 2.0 28 12/01/18 08:01 97.2 73 20 138/69 (92) 98 12/01/18 08:00 74 12/01/18 04:00 97.5 81 20 158/92 (114) 96 12/01/18 04:00 80 12/01/18 00:00 82 12/01/18 00:00 98.6 79 20 159/80 (106) 96 Intake and Output 11/30/18 12/01/18 19:00 07:00 Output Total 500 ml Balance -500 ml Output Urine Total 500 ml # Bowel Movements 1 1 2D Echo: LVEF 65%, Mild LVH, Mild LAE, Grade I LVDD, RVSP 44 mmHg Laboratory Tests Test 12/01/18 09:00 12/01/18 16:00 White Blood Count 14.1 K/UL (4.8-10.8) H Red Blood Count 4.33 M/UL (4.20-5.40) Hemoglobin 12.4 G/DL (12.0-16.0) Hematocrit 39.8 % (37.0-47.0) Mean Corpuscular Volume 92 FL (80-99) Mean Corpuscular Hemoglobin 28.6 PG (27.0-31.0) Mean Corpuscular Hemoglobin Concent 31.2 G/DL (32.0-36.0) L Red Cell Distribution Width 14.8 % (11.6-14.8) Platelet Count 327 K/UL (150-450) Mean Platelet Volume 11.4 FL (6.5-10.1) H Neutrophils (%) (Auto) 62.8 % (45.0-75.0) Lymphocytes (%) (Auto) 26.4 % (20.0-45.0) Monocytes (%) (Auto) 5.2 % (1.0-10.0) Eosinophils (%) (Auto) 2.2 % (0.0-3.0) Basophils (%) (Auto) 3.5 % (0.0-2.0) H Sodium Level 145 MMOL/L (136-145) Potassium Level 4.1 MMOL/L (3.5-5.1) Chloride Level 105 MMOL/L (98-107) Carbon Dioxide Level 36 MMOL/L (21-32) H Anion Gap 4 mmol/L (5-15) L Blood Urea Nitrogen 13 mg/dL (7-18) Creatinine 0.8 MG/DL (0.55-1.30) Estimat Glomerular Filtration Rate > 60 mL/min (>60) Glucose Level 101 MG/DL (74-106) Calcium Level 9.0 MG/DL (8.5-10.1) Magnesium Level 1.7 MG/DL (1.8-2.4) L Total Bilirubin 0.3 MG/DL (0.2-1.0) Aspartate Amino Transf (AST/SGOT) 16 U/L (15-37) Alanine Aminotransferase (ALT/SGPT) 12 U/L (12-78) Alkaline Phosphatase 66 U/L (46-116) Total Protein 6.8 G/DL (6.4-8.2) Albumin 3.0 G/DL (3.4-5.0) L Globulin 3.8 g/dL Albumin/Globulin Ratio 0.8 (1.0-2.7) L Urine Color Pale yellow Urine Appearance Clear Urine pH 6 (4.5-8.0) Urine Specific [place] 1.010 (1.005-1.035) Urine Protein Negative (NEGATIVE) Urine Glucose (UA) Negative (NEGATIVE) Urine Ketones Negative (NEGATIVE) Urine Blood Negative (NEGATIVE) Urine Nitrite Negative (NEGATIVE) Urine Bilirubin Negative (NEGATIVE) Urine Urobilinogen Normal MG/DL (0.0-1.0) Urine Leukocyte Esterase Negative (NEGATIVE) Urine RBC 0 /HPF (0 - 2) Urine WBC 0 /HPF (0 - 2) Urine Squamous Epithelial Cells Occasional /LPF Urine Bacteria None /HPF (NONE) Objective HEENT: Atraumatic and normocephalic. Anicteric. Pupils are equal, round, and reactive to light and accommodation. Extraocular muscles intact. NECK: JVP less than 5 cm. No carotid bruit. Carotid upstroke is 2+ bilaterally. CARDIOVASCULAR: Normal S1 and S2. Regular rate and rhythm. No murmurs, gallops, or rubs. PMI is at fourth intercostal space in the midclavicular line. LUNGS: Diminished breath sounds. Poor inspiratory. ABDOMEN: Morbidly obese. No hepatosplenomegaly. Positive bowel sounds. EXTREMITIES: There is 2+ bilateral lower extremity edema. Patrick Rinaldi MD Dec 01, 2018 22:14
[2018-12-02] VITALS: BP 129/66
[2018-12-02] MEDS: HYDROcodone/Acetamin 5/325 tab ORAL PRN ×3 (01:19→20:45)
[2018-12-02 04:00] VITALS: BP 118/43
[2018-12-02] MEDS: NovoLOG Insulin Flexpen SUBQ SCH ×4 (06:28→20:48)
--- NOTE | 2018-12-02 06:29 | NUR ---
NURSE NOTES: Patient wants her 06:30 meds with breakfast, will endorse to incoming nurse
--- NOTE | 2018-12-02 07:12 | NUR ---
NURSE NOTES: Received report from Laurence/RN, Patient is awake, eating breakfast. On 2L nasal canula, No signs of acute distress/SOB noted at this time. Able to make needs known. Checked IV site, patent, no bleeding, or infiltration noted. Bed at lowest position, and locked. brakes on, side rails up x3, Call light and personal belonging within reach. Will continue plan of care.
--- NOTE | 2018-12-02 07:18 | NUR ---
HAND-OFF: Report given to YOSSI Corley, patient in stable condition, plan of care endorsed.
[2018-12-02 08:00] VITALS: BP 144/71
[2018-12-02] MEDS: metFORMIN 500mg tab ORAL SCH ×2 (08:07→17:16)
[2018-12-02] MEDS: sitaGLIPtin 50mg tab ORAL SCH (08:07)
[2018-12-02] MEDS: Aspirin Baby 81mg ORAL SCH (08:09)
[2018-12-02] MEDS: Losartan 50mg tab ORAL SCH (08:09)
[2018-12-02] MEDS: Furosemide 40mg tab ORAL SCH (08:10)
[2018-12-02] MEDS: Morphine Sulfate 2mg/ml Inj(IV/IM USE ONLY) IVP PRN ×2 (08:11→17:19)
[2018-12-02] MEDS: Enoxaparin 40mg Inj SUBQ SCH (08:32)
[2018-12-02 12:00] VITALS: BP 111/60
[2018-12-02 16:00] VITALS: BP 118/71
--- NOTE | 2018-12-02 19:44 | NUR ---
HAND-OFF: Report given to Ashley/RN, Patient is in stable condition, Endorsed plan of care.
--- NOTE | 2018-12-02 19:45 | NUR ---
NURSE NOTES: Received bedside report from YOSSI Robledo.Patient stable,no c/o pain,no respiratory distress noted,A&O x4,Norwegian speaking,SR on photograph enlarger,2L/min N/C tolerated well,lungs diminished sounds bilateral on auscultation,BS active in all quadrants,IV asymptomatic,intact on R hand 20G SL,bed secured on a safe low position,call light within a reach,will continue to monitor and follow POC.
[2018-12-02 20:00] VITALS: BP 143/79
--- NOTE | 2018-12-02 23:28 | Cardiology Progress Note ---
Assessment/Plan Assessment/Plan 1. Dyspnea and lower extremity edema, most likely due to obesity hypoventilation syndrome to be a part of moderate pulmonary hypertension. A 2-D echocardiography shows normal LV systolic function measured at 60%. There is no evidence of increased intracardiac filling pressures. Normal beta-natriuretic peptide essentially rules out congestive heart failure. 2. Widened mediastinum at the previous admission was noted on the chest x-ray. CT of chest could not be done due to the patient's body habitus. 3. Moderate pulmonary hypertension, most likely secondary to a combination of obstructive sleep apnea or possibly chronic obstructive pulmonary disease. 4. History of diabetes mellitus. 5. History of hypertension. 6. Dual-chamber pacemaker implantation due to sick sinus syndrome during obstructive sleep apnea. Subjective Subjective Sinus rhythm at rate of 73. Objective Last 24 Hour Vital Signs Date Time Temp Pulse Resp B/P (MAP) Pulse Ox O2 Delivery O2 Flow Rate FiO2 12/02/18 16:00 73 12/02/18 16:00 98.5 74 20 118/71 (87) 98 12/02/18 12:30 98.2 12/02/18 12:00 71 12/02/18 12:00 98.2 84 20 111/60 (77) 98 12/02/18 09:00 Nasal Cannula 2.0 12/02/18 08:09 144/71 12/02/18 08:00 83 12/02/18 08:00 98.1 87 20 144/71 (95) 96 12/02/18 07:05 95 Nasal Cannula 2.0 28 12/02/18 04:00 97.6 70 20 118/43 (68) 96 12/02/18 04:00 79 12/02/18 00:00 87 12/02/18 00:00 97.6 85 18 129/66 (87) 97 Intake and Output 12/01/18 12/02/18 19:00 07:00 Intake Total 1560 ml Output Total 2450 ml Balance -890 ml Intake Oral 1560 ml Output Urine Total 2450 ml 2D Echo: LVEF 65%, Mild LVH, Mild LAE, Grade I LVDD, RVSP 44 mmHg Objective HEENT: Atraumatic and normocephalic. Anicteric. Pupils are equal, round, and reactive to light and accommodation. Extraocular muscles intact. NECK: JVP less than 5 cm. No carotid bruit. Carotid upstroke is 2+ bilaterally. CARDIOVASCULAR: Normal S1 and S2. Regular rate and rhythm. No murmurs, gallops, or rubs. PMI is at fourth intercostal space in the midclavicular line. LUNGS: Diminished breath sounds. Poor inspiratory. ABDOMEN: Morbidly obese. No hepatosplenomegaly. Positive bowel sounds. EXTREMITIES: There is 2+ bilateral lower extremity edema. Patrick Rinaldi MD Dec 02, 2018 23:28
[2018-12-03] VITALS: BP 135/90
[2018-12-03 04:00] VITALS: BP 123/75
[2018-12-03] MEDS: metFORMIN 500mg tab ORAL SCH (05:52)
[2018-12-03] MEDS: sitaGLIPtin 50mg tab ORAL SCH (05:52)
[2018-12-03] MEDS: NovoLOG Insulin Flexpen SUBQ SCH (05:53)
--- NOTE | 2018-12-03 07:15 | NUR ---
NURSE NOTES: Nurse report given by YOSSI Ramirez. Patient's sleeping in bed, no s/s of distress or SOB. Patient's female but using urinal at bed side. Patient's on 2L NC. Bed at lowest position, break engaged, call light within reach, side rails x 2, safety precaution is on. IV is saline lock, patent and asymptomatic. Will continue to monitor.
--- NOTE | 2018-12-03 07:15 | NUR ---
HAND-OFF: Report given to Juidt Ocampo RN.Patient stable,sleeping.
--- NOTE | 2018-12-03 09:45 | NUR ---
NURSE NOTES: Patient's getting discharged per Dr. Serrano's order. Order acknowledged and carried out. Patient's belonging list, discharge document went over with patient and signed by patient. IV is removed, ID is discarded properly, commercial escrow officer is removed. Patient's stable and AO x 4, ambulates, denies pain, s/s of distress or SOB. Patient got wheeled to her car, assisted by RN and [employer]. Patient left the floor at 0945, charge nurse and commercial escrow officer aware.
--- NOTE | 2018-12-03 13:50 | NUR ---
*-* INSURANCE *-* ALL AVAILABLE CLINICALS HAVE BEEN FAXED TO: MASSIEL SALOMON [facility]: CHANDU RANKIN WILL BE HANDLING THIS ADMISSION F: [phone]
--- NOTE | 2018-12-03 19:38 | Discharge Summary ---
Discharge Summary Discharge Summary _ DATE OF ADMISSION: 11/28/2018 DATE OF DISCHARGE: 12/03/2018 DISCHARGED BY: Dr Serrano REASON FOR ADMISSION: 58 years old female, with past medical history of diabetes mellitus, hypertension, congestive heart failure, pacemaker, leukemia, in remission, depression, anxiety, presented with shortness of breath and leg swelling for 1 day. Patient reported difficulty ambulating due to shortness of breath. Patient denied chest pain. Patient was recently admitted to [facility], but left AGAINST MEDICAL ADVICE 2 days ago , since she had to deal with some housing issues. Patient reported filling her prescription, but stated that they did not help. She denied fever and chills. She denied cough. Upon evaluation blood pressure was elevated 162/102. Pulse oximetry was 98% on 2 L of oxygen via nasal cannula. Laboratory work-up revealed mild leukocytosis WBC 11.9, stable hemoglobin and hematocrit. Urinalysis revealed evidence of pyuria, moderate bacteria, +2 leukocyte esterase, + 1 protein. Chemistry demonstrated sodium 146, BUN 21, creatinine 1.0. Glucose 160. Stable LFT. Troponin negative. pro BNP 11. Albumin 3.2. EKG revealed sinus rhythm .no acute ischemic changes. Chest x-ray demonstrated mild pulmonary vascular congestion. Pacemaker noted. In emergency department patient received Lasix and admitted to telemetry floor for further management. CONSULTANTS: manager income tax Dr. Rinaldi HOSPITAL COURSE: Patient admitted to telemetry floor. Repeated troponin was negative. EKG revealed no acute ischemic changes. Patient was ruled out for acute TX. Echocardiogram was done on 11/04 and revealed preserved ejection fraction 65 to 70%. Grossly normal left ventricular chamber size, systolic function and wall motion to the extent visualized. Mild left ventricular hypertrophy. Right ventricular systolic pressure of 44 , consistent with mild pulmonary hypertension. Supplemental oxygen provided as needed to keep pulse oximetry above 92 %. Bronchodilator treatment provided as needed. Per manager income tax, dyspnea and lower extremity edema were partly likely due to obesity hypoventilation syndrome. On previous admission patient noted to have a widened mediastinum on chest x- ray. CT of the chest was not done due to patient's body habitus. Moderate pulmonary hypertension was most likely secondary to combination of obstructive sleep apnea or possibly chronic obstructive pulmonary disease . Dual-chamber pacemaker was implanted due to sick sinus syndrome prior, likely due to obstructive sleep apnea. Antiplatelet therapy with aspirin and statin continued. Blood pressure was managed with losartan and Lasix blood pressure stabilized. Blood sugar was managed with metformin and Januvia. Sliding scale of insulin was on board as needed. DVT prophylaxis provided. Pain management was addressed. Supportive care provided. Urine culture revealed VRE. Patient had no urinary complaints. No leukocytosis , no fever. Repeated urinalysis revealed no evidence of UTI. Patient clinically stabilized and was ready for discharge home. Outpatient polysomnogram was recommended. FINAL DIAGNOSES: CHF exacerbation Obesity hypoventilation syndrome Moderate pulmonary hypertension Dual-chamber pacemaker implantation due to sick sinus syndrome Probable obstructive sleep apnea Diabetes mellitus type 2 Asymptomatic bacteriuria- resolved DISCHARGE MEDICATIONS: See Medication Reconciliation list. DISCHARGE INSTRUCTIONS: Patient was discharged home. Follow up with primary care provider in one week. I have been assigned to dictate discharge summary for this account. I was not involved in the patient's management. Homa Howe NP Dec 03, 2018 19:38
--- NOTE | 2018-12-05 15:22 | NUR ---
*-* INSURANCE *-* DISCHARGE SUMMARY HAS BEEN FAXED TO: MASSIEL SALOMON [place]: CHANDU RANKIN WILL BE HANDLING THIS ADMISSION F: [phone]
== END 2018-12-03 09:45 | disposition still patient (30) | DRG 194 ==
LOC: EMR 21:20 → 2E 21:59 → EDBEDREQ 23:05
DX: I11.0 Hypertensive heart disease with heart failure (principal); I50.33 Acute on chronic diastolic (congestive) heart failure; R60.9 Edema, unspecified; I10 Essential (primary) hypertension; E11.9 Type 2 diabetes mellitus without complications; I42.9 Cardiomyopathy, unspecified; Z95.0 Presence of cardiac pacemaker; C95.91 Leukemia, unspecified, in remission; E66.2 Morbid (severe) obesity with alveolar hypoventilation; I27.20 Pulmonary hypertension, unspecified; G47.33 Obstructive sleep apnea (adult) (pediatric); K21.9 Gastro-esophageal reflux disease without esophagitis
CPT/HCPCS: 36415; 71045; 80053; 81001; 81003; 82550; 82553; 82962; 83036; 83735; 83880; 84484; 85025; 87086; 87181; 93005; 96374; 99285; J1815

== ENCOUNTER 2018-12-05 20:48 | Emergency (ER) | payer MEDICAID ==
[~2018-12-05] VITALS: Ht 175.3 cm; Wt 149.7 kg
--- NOTE | 2018-12-05 21:15 | NUR ---
ED Nurse Note: Recieved pt from home, on [place] awake, alert and oriented x 4, pt here with c/o sob for past 2 days with BLE swelling and pain at 12/27, pt has hx of chf and takes lasix, pt states compliant with meds, also intermittent cp at 09/26, pt immediately gowned, assisted to [facility] [place] via wheelchair, and immediately placed on cardiac monitoring, will resue care as ordered and closely monitor.
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
[2018-12-05 21:39] LABS: HEMATOCRIT 40.9 % (37.0-47.0); HEMOGLOBIN 13.2 G/DL (12.0-16.0); MEAN CORPUSCULAR VOLUME 90 FL (80-99); PLATELET COUNT 366 K/UL (150-450); RED BLOOD COUNT 4.52 M/UL (4.20-5.40); RED CELL DISTRIBUTION WIDTH 13.8 % (11.6-14.8)
[2018-12-05 21:47] LABS: ANION GAP 8 mmol/L (5-15); BLOOD UREA NITROGEN 19 mg/dL (7-18); CALCIUM 9.5 MG/DL (8.5-10.1); CARBON DIOXIDE 29 MMOL/L (21-32); CHLORIDE 106 MMOL/L (98-107); POTASSIUM 3.7 MMOL/L (3.5-5.1); SODIUM 143 MMOL/L (136-145)
[2018-12-05 21:58] LABS: ALANINE AMINOTRANSFERASE 11 U/L (12-78); ALBUMIN 3.3 G/DL (3.4-5.0); ALBUMIN/GLOBULIN RATIO 0.8 (1.0-2.7); ALKALINE PHOSPHATASE 84 U/L (46-116); ASPARTATE AMINO TRANSFERASE 21 U/L (15-37); BILIRUBIN,TOTAL 0.3 MG/DL (0.2-1.0)
[2018-12-05] MEDS ORDERED: HYDROcodone/Acetamin 7.5/325 tab ORAL ONE (22:00)
[2018-12-05] MEDS ORDERED: Doxycycline Hyclate 100 MG in D5W 110 ML IVPB ONE (22:15)
[2018-12-05] MEDS ORDERED: Nitroglycerin 2% oint pkt TOPIC ONE (22:30)
[2018-12-05] MEDS ORDERED: DOXYCYCLINE MO100 MG ORAL (23:22)
[2018-12-05 23:30] VITALS: BP 144/83
--- NOTE | 2018-12-05 23:30 | NUR ---
ED Nurse Note: Pt medicated for pain, meds effective, pt remains on cardiac monitoring effective outcome from lasix, pt urinated about 1liter after med given, tolerating well, iv meds infusing, no s/s of adverse reaction noted, will continue to closely monitor while waiting for disposition information.
[2018-12-06 01:30] VITALS: BP 141/76
--- NOTE | 2018-12-06 01:45 | NUR ---
ER DISCHARGE NOTE: Patient is cleared to be discharged per ERMD, pt is aox4, on room air, with stable vital signs. pt was given dc and prescription instructions, pt was able to verbalize understanding, pt id band and iv site removed without complications. pt is able to ambulate with steady gait. pt took all belongings.
[2018-12-06 01:50] VITALS: BP 141/76
--- NOTE | 2018-12-06 11:16 | Diagnostic Imaging Report ---
Indication: Dyspnea Comparison: 11/28/2018 A single view chest radiograph was obtained. Findings: Pulmonary vascular prominence, cardiomegaly again demonstrated. Pacemaker noted on the left. IMPRESSION: Suspected CHF
== END 2018-12-06 01:50 | disposition home or self-care (01) ==
LOC: EMR 23:37
DX: J18.9 Pneumonia, unspecified organism (principal); I11.0 Hypertensive heart disease with heart failure; I50.9 Heart failure, unspecified; E11.9 Type 2 diabetes mellitus without complications; Z95.0 Presence of cardiac pacemaker; C95.91 Leukemia, unspecified, in remission; F41.9 Anxiety disorder, unspecified; F32.9 Major depressive disorder, single episode, unspecified; E78.5 Hyperlipidemia, unspecified; E66.01 Morbid (severe) obesity due to excess calories; Z68.42 Body mass index [BMI] 45.0-49.9, adult
CPT/HCPCS: 36415; 71045; 80053; 83880; 84484; 85007; 85025; 93005; 96365; 96375; J1940; J3490; Z7502; 99284